=== PATIENT | male | born 1960 | race Caucasian/White ===

== ENCOUNTER 2017-05-21 16:34 | Emergency (ER) | payer OTHER ==
[~2017-05-21] VITALS: Ht 188 cm; Wt 117.9 kg
[2017-05-21] MEDS ORDERED: IV NORMAL SALINE 500ML BAG 500 ML IV ONE (17:00)
--- NOTE | 2017-05-21 17:02 | PHYS DOC ---
Past Medical History Past Medical History: Diabetes-Type II, High Cholesterol, Hypertension Past Surgical History: Other Additional Past Surgical Histo: toe x2 amputation R foot Alcohol Use: None Additional Information: no etoh x1 year Drug Use: None Adult General Chief Complaint Chief Complaint: WEAKNESS/GENERALIZED HPI HPI Patient is a 57 year old male who presents with 3-4 week history of dizziness and generalized weakness and in the last 24-48 hours has had near syncopal episodes. Moderate severity, no chest pain or shortness of breath no abdominal pain no dysuria or frequency or back pain no increased leg swelling. PCP is the [facility] Review of Systems Review of Systems Constitutional: Denies fever or chills [] Eyes: Denies change in visual acuity, redness, or eye pain [] HENT: Denies nasal congestion or sore throat [] Respiratory: Denies cough or shortness of breath [] Cardiovascular: No additional information not addressed in HPI [] GI: Denies abdominal pain, nausea, vomiting, bloody stools or diarrhea [] : Denies dysuria or hematuria [] Musculoskeletal: Denies back pain or joint pain [] Integument: Denies rash or skin lesions [] Neurologic: Denies headache, focal weakness or sensory changes [] Endocrine: Denies polyuria or polydipsia [] Current Medications Current Medications Current Medications Medications (Trade) Dose Ordered Sig/Adiel Start Time Stop Time Status Last Admin Dose Admin Sodium Chloride 500 ml @ 500 mls/hr 1X ONCE 05/21/17 17:00 05/21/17 17:59 DC 05/21/17 17:14 500 MLS/HR Allergies Allergies Allergies Coded Allergies Type Severity Reaction Last Updated Verified No Known Drug Allergies 05/21/17 No Physical Exam Physical Exam Constitutional: Well developed, well nourished, no acute distress, non-toxic appearance. [] HENT: Normocephalic, atraumatic, bilateral external ears normal, oropharynx moist, no oral exudates, nose normal. [] Eyes: PERRLA, EOMI, conjunctiva normal, no discharge. [] Neck: Normal range of motion, no tenderness, supple, no stridor. [] Cardiovascular:Heart rate regular rhythm, no murmur [] Lungs & Thorax: Bilateral breath sounds clear to auscultation [] Abdomen: Bowel sounds normal, soft, no tenderness, no masses, no pulsatile masses. [] Skin: Warm, dry, no erythema, no rash. [] Back: No tenderness, no CVA tenderness. [] Extremities: No tenderness, no cyanosis, no clubbing, ROM intact, trace edema. [ ] Neurologic: Alert and oriented X 3, normal motor function, normal sensory function, no focal deficits noted. [] Psychologic: Affect normal, judgement normal, mood normal. [] Current Patient Data Vital Signs Vital Signs Date Time Temp Pulse Resp B/P (MAP) Pulse Ox O2 Delivery O2 Flow Rate FiO2 05/21/17 18:00 68 19 99 Room Air 05/21/17 17:30 105/69 (81) 05/21/17 16:34 98.4 98.4 Lab Values Laboratory Tests Test 05/21/17 16:47 White Blood Count 8.5 x10^3/uL (4.0-11.0) Red Blood Count 4.41 x10^6/uL (4.30-5.70) Hemoglobin 13.6 g/dL (13.0-17.5) Hematocrit 37.9 % (39.0-53.0) L Mean Corpuscular Volume 86 fL (79-100) Mean Corpuscular Hemoglobin 31 pg (25-35) Mean Corpuscular Hemoglobin Concent 36 g/dL (31-37) Red Cell Distribution Width 13.5 % (11.5-14.5) Platelet Count 225 x10^3/uL (140-400) Neutrophils (%) (Auto) 73 % (31-73) Lymphocytes (%) (Auto) 19 % (24-48) L Monocytes (%) (Auto) 6 % (0-9) Eosinophils (%) (Auto) 2 % (0-3) Basophils (%) (Auto) 1 % (0-3) Neutrophils # (Auto) 6.2 x10^3uL (1.8-7.7) Lymphocytes # (Auto) 1.6 x10^3/uL (1.0-4.8) Monocytes # (Auto) 0.5 x10^3/uL (0.0-1.1) Eosinophils # (Auto) 0.1 x10^3/uL (0.0-0.7) Basophils # (Auto) 0.1 x10^3/uL (0.0-0.2) Sodium Level 142 mmol/L (136-145) Potassium Level 4.8 mmol/L (3.5-5.1) Chloride Level 105 mmol/L (98-107) Carbon Dioxide Level 28 mmol/L (21-32) Anion Gap 9 (6-14) Blood Urea Nitrogen 26 mg/dL (8-26) Creatinine 1.4 mg/dL (0.7-1.3) H Estimated GFR (Cockcroft-Gault) 51.9 BUN/Creatinine Ratio 19 (6-20) Glucose Level 187 mg/dL (70-99) H Calcium Level 8.9 mg/dL (8.5-10.1) Total Bilirubin 0.7 mg/dL (0.2-1.0) Aspartate Amino Transferase (AST) 26 U/L (15-37) Alanine Aminotransferase (ALT) 42 U/L (16-63) Alkaline Phosphatase 95 U/L (46-116) Troponin I Quantitative 0.027 ng/mL (0.000-0.055) Total Protein 7.7 g/dL (6.4-8.2) Albumin 3.5 g/dL (3.4-5.0) Albumin/Globulin Ratio 0.8 (1.0-1.7) L Laboratory Tests 05/21/17 16:47 Laboratory Tests 05/21/17 16:47 EKG EKG EKG normal sinus rhythm rate of 75 no STEMI interpretation QTC normal [] Radiology/Procedures Radiology/Procedures Chest x-ray: Unremarkable my review of the image my interpretation. [] Course & Med Decision Making Course & Med Decision Making Pertinent Labs and Imaging studies reviewed. (See chart for details) Patient has a nonfocal neurologic exam. We will check some labs and then reassess. Labs including urinalysis were unremarkable. Time 1938 reevaluation: he is wide awake resting comfortably in the bed. I discussed the normal findings on labs chest x-ray EKG and urine. I have advised close follow-up with the [facility] next available appointment. he was able to ambulate safely. [] Dragon Disclaimer Dragon Disclaimer This electronic medical record was generated, in whole or in part, using a voice recognition dictation system. Departure Departure Impression: Primary Impression: Malaise and fatigue Disposition: 01 HOME, SELF-CARE Condition: IMPROVED Patient Instructions: Weakness, [id number] DEV JUAREZ MD 12, 2017 17:02
[2017-05-21 17:06] LABS: BASO # 0.1 x10^3/uL (0.0-0.2); BASO % 1 % (0-3); EOS % 2 % (0-3); HEMATOCRIT 37.9 % (39.0-53.0); HEMOGLOBIN 13.6 g/dL (13.0-17.5); LYMPH # 1.6 x10^3/uL (1.0-4.8); LYMPH % 19 % (24-48); MEAN CORPUSCULAR HEMOGLOBIN 31 pg (25-35); MEAN CORPUSCULAR HGB CONC 36 g/dL (31-37); MEAN CORPUSCULAR VOLUME 86 fL (79-100); MONO % 6 % (0-9); NEUT % 73 % (31-73); PLATELET COUNT 225 x10^3/uL (140-400); RED BLOOD COUNT 4.41 x10^6/uL (4.30-5.70); RED CELL DISTRIBUTION WIDTH 13.5 % (11.5-14.5); WHITE BLOOD COUNT 8.5 x10^3/uL (4.0-11.0)
[2017-05-21 17:20] LABS: CALCIUM 8.9 mg/dL (8.5-10.1); CREATININE 1.4 mg/dL (0.7-1.3); GFR 51.9; POTASSIUM 4.8 mmol/L (3.5-5.1)
[2017-05-21 17:25] LABS: ALBUMIN 3.5 g/dL (3.4-5.0); ALBUMIN/GLOBULIN RATIO 0.8 (1.0-1.7); TOTAL BILIRUBIN 0.7 mg/dL (0.2-1.0); TOTAL PROTEIN 7.7 g/dL (6.4-8.2)
[2017-05-21 19:02] LABS: BILIRUBIN,URINE NEGATIVE (NEG); GLUCOSE,URINE NEGATIVE (NEG); NITRITE,URINE NEGATIVE (NEG); PH,URINE 5.5; PROTEIN,URINE NEGATIVE (NEG-TRACE)
[2017-05-21 19:09] LABS: BACTERIA,URINE 0 /HPF (0-FEW); RBC,URINE 0 /HPF (0-2); SQUAMOUS EPITHELIAL CELL,UR OCC /LPF; WBC,URINE OCC /HPF (0-4)
[2017-05-21 19:30] VITALS: BP 129/74
--- NOTE | 2017-05-22 06:18 | EKG ---
[facility] [address] [place] [address] Test Date: 2017-05-21 Test Time: 16:42:13 Pat Name: ROSAS JOHNSON Department: Room: Gender: M [employer] Internship: : 1960 Requested By: DEV JUAREZ Order Number: [id number] Reading MD: James Gaming Measurements Intervals [place] Rate: 75 P: 11 WV: 154 QRS: -7 QRSD: 78 T: 18 QT: 364 QTc: 409 Interpretive Statements SINUS RHYTHM LEFTWARD AXIS Electronically Signed On 06-07-2017 15:21:44 CDT by James Gaming
--- NOTE | 2017-05-22 08:11 | RAD ---
Portable chest, 05/21/2017: History: Weakness The heart size and pulmonary vascularity are normal. There is a calcified granuloma in the right upper lobe. No acute infiltrates are seen. There is no evidence of pleural fluid. Moderate spurring is present in the spine. IMPRESSION: No acute cardiopulmonary abnormality is detected.
== END 2017-05-21 20:12 | disposition home or self-care (01) ==
LOC: ER 16:34 → UNDOADMOB 18:28 → 2 NORTH 18:28 → ER 20:12
DX: R53.1 Weakness (principal); R53.81 Other malaise; R42 Dizziness and giddiness; R55 Syncope and collapse; E11.9 Type 2 diabetes mellitus without complications; E78.00 Pure hypercholesterolemia, unspecified; I10 Essential (primary) hypertension
CPT/HCPCS: 36415; 71010; 80053; 81001; 84484; 85027; 87086; 93005; 96360; 96361; 99285; J7040

== ENCOUNTER → 2019-10-15 | Outpatient (CLI) | payer MEDICARE ==
[2019-09-24 11:00] VITALS: BP 159/90
[~2019-10-15] MED LIST: AMLO10TA8 PO; ASPI-612 PO; ATOR20TA58 PO; INSU100V8 SQ; LOSA-73 PO; METF500T16 PO; METO50TA6 PO
--- NOTE | 2019-10-15 13:13 | RAD ---
EXAM: Lower extremity arterial Doppler sonogram with ankle-brachial indices (NEELA). HISTORY: Foot wound. Pain. Hypertension. TECHNIQUE: Doppler sonographic evaluation of the lower extremities was performed and pressure readings were assessed. FINDINGS: Right brachial pressure: 165 mmHg Left brachial pressure: 163 mmHg Right ankle pressure (posterior tibial artery): 194 mmHg Right ankle pressure (dorsalis pedis artery): 196 mmHg Right NEELA : 1.2 Left ankle pressure (posterior tibial artery): 193 mmHg Left ankle pressure (dorsalis pedis artery): 211 mmHg Left NEELA: 1.3 There are biphasic and triphasic waveforms throughout the bilateral lower extremity arteries. There is a mildly elevated peak systolic velocity within the right common femoral artery and left dorsalis pedis artery. The remainder the peak systolic velocities are within normal limits. No occlusion is seen. There is a prominent right inguinal lymph node with fatty hilum, likely physiologic or reactive in etiology. This measures 3.7 cm in long axis. There is a right popliteal cyst measuring 5.1 cm in maximum dimension. IMPRESSION: 1. Normal bilateral ankle-brachial indices. 2. Elevated peak systolic velocities within the right common femoral and left dorsalis pedis arteries, suggesting hemodynamically significant stenosis. 3. Right Kathleen's cyst. Electronically signed by: Isis Garcia MD (10/15/2019 1:09 PM) [place] [id number]
== END | disposition home or self-care (01) ==
LOC: US 08:35
PROVIDERS: ATTEND Emergency Medicine Undersea and Hyperbaric Medicine
DX: M79.604 Pain in right leg (principal); M79.605 Pain in left leg; M71.21 Synovial cyst of popliteal space [Baker], right knee; L97.519 Non-pressure chronic ulcer of other part of right foot with unspecified severity; L97.529 Non-pressure chronic ulcer of other part of left foot with unspecified severity; I10 Essential (primary) hypertension
CPT/HCPCS: 93922; 93925

== ENCOUNTER 2020-04-14 10:37 | Inpatient (IN) | payer MEDICARE ==
[~2020-04-14] VITALS: Ht 190.5 cm; Wt 135.2 kg
[2020-04-14 12:04] LABS: BASO % 1 % (0-3); EOS # 0.1 x10^3/uL (0.0-0.7); EOS % 2 % (0-3); HEMATOCRIT 33.1 % (39.0-53.0); HEMOGLOBIN 11.2 g/dL (13.0-17.5); LYMPH # 0.5 x10^3/uL (1.0-4.8); LYMPH % 13 % (24-48); MEAN CORPUSCULAR HEMOGLOBIN 30 pg (25-35); MEAN CORPUSCULAR HGB CONC 34 g/dL (31-37); MEAN CORPUSCULAR VOLUME 89 fL (79-100); MONO # 0.3 x10^3/uL (0.0-1.1); MONO % 7 % (0-9); NEUT # 3.2 x10^3/uL (1.8-7.7); NEUT % 77 % (31-73); PLATELET COUNT 193 x10^3/uL (140-400); RED BLOOD COUNT 3.74 x10^6/uL (4.30-5.70); RED CELL DISTRIBUTION WIDTH 15.9 % (11.5-14.5); WHITE BLOOD COUNT 4.2 x10^3/uL (4.0-11.0)
[2020-04-14 12:12] LABS: PROTHROMBIN TIME PATIENT 15.1 SEC (11.7-14.0)
[2020-04-14 12:15] LABS: ALBUMIN 2.8 g/dL (3.4-5.0); ALBUMIN/GLOBULIN RATIO 0.5 (1.0-1.7); CALCIUM 8.6 mg/dL (8.5-10.1); CREATININE 1.8 mg/dL (0.7-1.3); GFR 38.4; MAGNESIUM 1.9 mg/dL (1.8-2.4); TOTAL BILIRUBIN 0.9 mg/dL (0.2-1.0); TOTAL PROTEIN 7.9 g/dL (6.4-8.2)
[2020-04-14 12:21] LABS: POTASSIUM 2.8 mmol/L (3.5-5.1)
[2020-04-14] MEDS ORDERED: POTASSIUM CHLORIDE 10 MEQ TABLET.ER. PO ONE (12:30)
--- NOTE | 2020-04-14 12:44 | EKG ---
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
[2020-04-14] MEDS ORDERED: hydrALAZINE 20 MG/ML VIAL. IVP ONE (13:45)
--- NOTE | 2020-04-14 14:27 | RAD ---
CHEST AP ONLY Clinical indications: Weakness and shortness of breath. COMPARISON: September 22, 2019. Findings: The left lung field is clear. There is a new finding of a moderate size right-sided pleural effusion and associated compressive atelectasis of the right lung base. No pneumothorax is seen. Heart size and pulmonary vasculature and mediastinum are stable. IMPRESSION: New finding of moderate size right-sided pleural effusion and associated compressive atelectasis or infiltrate of the right lung base. Electronically signed by: Christiano Lemons MD (04/14/2020 2:24 PM) [id number]
[2020-04-14] MEDS ORDERED: fentaNYL PF VIAL 100 MCG/2 ML VIAL IVP ONE (15:00)
--- NOTE | 2020-04-14 15:15 | PHYS DOC ---
Past Medical History Past Medical History: Diabetes-Type II, High Cholesterol, Hypertension Past Surgical History: Other Additional Past Surgical Histo: toe x2 amputation R foot Smoking Status: Never Smoker Alcohol Use: Occasionally Drug Use: None General Adult EDM: Chief Complaint: ABNORMAL LABS HPI: HPI: Patient is a 60 year old male who was brought here by EMS from home due to high blood pressure, low potassium level, increased bilateral leg swelling. Patient has history hypertension, he took it medication this morning already. Patient stated home health nurse check on him today, felt that his blood pressure was really high so EMS were called to take him here for evaluation. Patient also was told that his serum potassium level was low as well. Patient denies any abdominal pain, no nausea vomiting. Patient denies any fever. Review of Systems: Review of Systems: Constitutional: Denies fever or chills. [] Eyes: Denies change in visual acuity. [] HENT: Denies nasal congestion or sore throat. [] Respiratory: Denies cough or shortness of breath. [] Cardiovascular: Denies chest pain or edema. [] GI: Denies abdominal pain, nausea, vomiting, bloody stools or diarrhea. [] : Denies dysuria. [] Musculoskeletal: Denies back pain , positive for bilateral lower extremity swelling Integument: Denies rash. [] Neurologic: Denies headache, focal weakness or sensory changes. [] Endocrine: Denies polyuria or polydipsia. [] Lymphatic: Denies swollen glands. [] Psychiatric: Denies depression or anxiety. [] Heart Score: Risk Factors: Risk Factors: DM, Current or recent (<one month) smoker, HTN, HLP, family history of CAD, obesity. Risk Scores: Score 0 - 3: 2.5% MACE over next 6 weeks - Discharge Home Score 4 - 6: 20.3% MACE over next 6 weeks - Admit for Clinical Observation Score 7 - 10: 72.7% MACE over next 6 weeks - Early Invasive Strategies Current Medications: Current Medications Medications (Trade) Dose Ordered Sig/Adiel Start Time Stop Time Status Last Admin Dose Admin Fentanyl Citrate (Fentanyl 2ml Vial) 100 mcg 1X ONCE 04/14/20 15:00 04/14/20 15:01 DC 04/14/20 15:10 100 MCG Hydralazine HCl (Apresoline Inj) 10 mg 1X ONCE 04/14/20 13:45 04/14/20 13:46 DC 04/14/20 13:56 10 MG Potassium Chloride (Klor-Con) 80 meq 1X ONCE 04/14/20 12:30 04/14/20 12:31 DC 04/14/20 12:37 80 MEQ Allergies: Allergies: Allergies Coded Allergies Type Severity Reaction Last Updated Verified No Known Drug Allergies 05/21/17 No Physical Exam: PE: Constitutional: Well developed, well nourished, no acute distress, non-toxic appearance. [] HENT: Normocephalic, atraumatic, bilateral external ears normal, oropharynx moist, no oral exudates, nose normal. [] Eyes: PERRLA, EOMI, conjunctiva normal, no discharge. [] Neck: Normal range of motion, no tenderness, supple, no stridor. [] Cardiovascular:Heart rate regular rhythm, no murmur [] Lungs & Thorax: Bilateral breath sounds clear to auscultation [] Abdomen: Bowel sounds normal, soft, no tenderness, no masses, no pulsatile masses. [] Skin: Warm, dry, no erythema, no rash. [] Back: No tenderness, no CVA tenderness. [] Extremities: Bilateral lower extremities swelling with 4 plus pitting edema. Neurologic: Alert and oriented X 3, normal motor function, normal sensory function, no focal deficits noted. [] Psychologic: Affect normal, judgement normal, mood normal. [] Current Patient Data: Labs: Laboratory Tests Test 04/14/20 10:45 White Blood Count 4.2 x10^3/uL (4.0-11.0) Red Blood Count 3.74 x10^6/uL (4.30-5.70) L Hemoglobin 11.2 g/dL (13.0-17.5) L Hematocrit 33.1 % (39.0-53.0) L Mean Corpuscular Volume 89 fL (79-100) Mean Corpuscular Hemoglobin 30 pg (25-35) Mean Corpuscular Hemoglobin Concent 34 g/dL (31-37) Red Cell Distribution Width 15.9 % (11.5-14.5) H Platelet Count 193 x10^3/uL (140-400) Neutrophils (%) (Auto) 77 % (31-73) H Lymphocytes (%) (Auto) 13 % (24-48) L Monocytes (%) (Auto) 7 % (0-9) Eosinophils (%) (Auto) 2 % (0-3) Basophils (%) (Auto) 1 % (0-3) Neutrophils # (Auto) 3.2 x10^3/uL (1.8-7.7) Lymphocytes # (Auto) 0.5 x10^3/uL (1.0-4.8) L Monocytes # (Auto) 0.3 x10^3/uL (0.0-1.1) Eosinophils # (Auto) 0.1 x10^3/uL (0.0-0.7) Basophils # (Auto) 0.0 x10^3/uL (0.0-0.2) Prothrombin Time 15.1 SEC (11.7-14.0) H Prothrombin Time INR 1.2 (0.8-1.1) H Activated Partial Thromboplast Time 42 SEC (24-38) H Sodium Level 139 mmol/L (136-145) Potassium Level 2.8 mmol/L (3.5-5.1) *L Chloride Level 100 mmol/L (98-107) Carbon Dioxide Level 30 mmol/L (21-32) Anion Gap 9 (6-14) Blood Urea Nitrogen 18 mg/dL (8-26) Creatinine 1.8 mg/dL (0.7-1.3) H Estimated GFR (Cockcroft-Gault) 38.4 BUN/Creatinine Ratio 10 (6-20) Glucose Level 174 mg/dL (70-99) H Calcium Level 8.6 mg/dL (8.5-10.1) Magnesium Level 1.9 mg/dL (1.8-2.4) Total Bilirubin 0.9 mg/dL (0.2-1.0) Aspartate Amino Transferase (AST) 22 U/L (15-37) Alanine Aminotransferase (ALT) 14 U/L (16-63) L Alkaline Phosphatase 91 U/L (46-116) Troponin I Quantitative 0.146 ng/mL (0.000-0.055) KY-Mvm-C-Type Natriuretic Peptide 06109 pg/mL (0-124) H Total Protein 7.9 g/dL (6.4-8.2) Albumin 2.8 g/dL (3.4-5.0) L Albumin/Globulin Ratio 0.5 (1.0-1.7) L Laboratory Tests 04/14/20 10:45 Laboratory Tests 04/14/20 10:45 Vital Signs: Vital Signs Date Time Temp Pulse Resp B/P (MAP) Pulse Ox O2 Delivery O2 Flow Rate FiO2 04/14/20 15:10 Room Air 04/14/20 13:56 69 195/115 04/14/20 10:37 97.9 20 98 97.9 EKG: EKG: EKG was done at 1156, heart rate 79 bpm, no ST segment elevation, atrial fibrillation. [] Radiology/Procedures: Radiology/Procedures: [][place] [id number] [place] [address] IMAGING REPORT Signed PATIENT: ROSAS JOHNSON ACCOUNT: [id number] : 1960 LOCATION: ER AGE: 60 SEX: M EXAM STATUS: REG ER ORD. PHYSICIAN: DEDRA MUELLER DO REASON: WEAKNESS, SHORT OF BREATH PROCEDURE: CHEST AP ONLY CHEST AP ONLY Clinical indications: Weakness and shortness of breath. COMPARISON: September 22, 2019. Findings: The left lung field is clear. There is a new finding of a moderate size right-sided pleural effusion and associated compressive atelectasis of the right lung base. No pneumothorax is seen. Heart size and pulmonary vasculature and mediastinum are stable. IMPRESSION: New finding of moderate size right-sided pleural effusion and associated compressive atelectasis or infiltrate of the right lung base. Electronically signed by: Anat Lemons MD (04/14/2020 2:24 PM) [id number] DICTATED and SIGNED BY: ANAT LEMONS MD DATE: 04/14/20 [address]24 [id number] [place], [place] [id number] IMAGING REPORT Signed PATIENT: ROSAS JOHNSON ACCOUNT: [id number] : 1960 LOCATION: ER AGE: 60 SEX: M EXAM STATUS: REG ER ORD. PHYSICIAN: DEDRA MUELLER DO REASON: LEGS SWELLING PROCEDURE: VENOUS LOWER EXT BILATERAL Exam: VENOUS LOWER EXT BILATERAL Indication: Reason: LEGS SWELLING / Spl. Instructions: / History: Technique: Color-flow and pulsed wave duplex ultrasound with compression of venous structures of the bilateral lower extremities. Comparison: None Available. Findings: Technically difficult examination due to patient's habitus. Venous compression was at times difficult to visualize. Duplex ultrasound of the deep venous structures of the bilateral lower extremities from the common femoral vein through the popliteal vein is negative for DVT. The posterior tibial and peroneal veins are segmentally visualized and patent where seen. Impression: Negative for DVT in the bilateral lower extremities, allowing for technical limitations. Electronically signed by: Darby Keenan MD (04/14/2020 4:02 PM) [facility] DICTATED and SIGNED BY: DARBY KEENAN MD DATE: 04/14/201601 Course & Med Decision Making: Course & Med Decision Making Pertinent Labs and Imaging studies reviewed. (See chart for details) Patient is a 60-year-old male who was evaluated in the ER due to low potassium level, bilateral lower extremity swelling, and hypertension. Patient was given 80 mEq of potassium p.o., he was given 20 mg of hydralazine IV, his blood pressure continued to elevated. Ultrasound his legs did not show any blood shawn t. Patient will be admitted to hospital for further evaluation and treatment. Karie Disclaimer: Karie Disclaimer: This electronic medical record was generated, in whole or in part, using a voice recognition dictation system. Departure Departure Impression: Primary Impression: Hypokalemia Additional Impressions: Hypertensive urgency Edema of both legs Pleural effusion, right Disposition: ADMITTED INPATIENT Condition: STABLE Referrals: NO PCP (PCP) Justicifation of Admission Dx: Justifications for Admission: Justification of Admission Dx: Yes Hypertension: Cresendo Worsening of Sym ERVINDEDRA Saxena DO Apr 14, 2020 15:15
[2020-04-14] MEDS ORDERED: MORPHINE SULFATE 2 MG/ML VIAL. IV PRN (16:00)
[2020-04-14] MEDS ORDERED: ONDANSETRON PF 4 MG/2 ML VIAL. IV PRN (16:00)
--- NOTE | 2020-04-14 16:05 | RAD ---
Exam: VENOUS LOWER EXT BILATERAL Indication: Reason: LEGS SWELLING / Spl. Instructions: / History: Technique: Color-flow and pulsed wave duplex ultrasound with compression of venous structures of the bilateral lower extremities. Comparison: None Available. Findings: Technically difficult examination due to patient's habitus. Venous compression was at times difficult to visualize. Duplex ultrasound of the deep venous structures of the bilateral lower extremities from the common femoral vein through the popliteal vein is negative for DVT. The posterior tibial and peroneal veins are segmentally visualized and patent where seen. Impression: Negative for DVT in the bilateral lower extremities, allowing for technical limitations. Electronically signed by: Chavo Keenan MD (04/14/2020 4:02 PM) TIM
[2020-04-14] MEDS ORDERED: LABETALOL 20 MG/4 ML DISP.SYRIN. IVP ONE (16:15)
[2020-04-14 17:35] VITALS: BP 155/87
[2020-04-14 19:00] VITALS: BP 152/86
--- NOTE | 2020-04-14 19:23 | NUR ---
The patient was brought to the floor at approximately 1705 hours. The patient doesn't know the names or dosages of medication he is suppose to be taking. The patient knows that he takes insulin, [facility] performs glucose checks, changes his dressing on his wounds and gives him blood pressure medication. The patient says he knows the colors of the pills. I was not able to input his medications. The only external medications listed were antibiotics.
--- NOTE | 2020-04-14 22:07 | HP ---
ADMIT DATE: 04/14/2020 CHIEF COMPLAINT: Abnormal labs. HISTORY OF PRESENT ILLNESS: The patient is a pleasant 60-year-old male who I think may be noncompliant with his meds. He basically presented because of home health nurse checked him today and felt that his blood pressure was really high. They called EMS. When he got to the ER, his pressure was in the 250s. He also has 3+ edema. His potassium was very low at 2.8. He has got a wound on the right foot. I discussed the case with ER physician. We are going to admit the patient and replace his potassium and consult the wound care team and Cardiology. PAST MEDICAL HISTORY: Noncompliance, hypertension, hyperlipidemia, diabetes, and toe amputations. ALLERGIES: None. FAMILY HISTORY: Hypertension. SOCIAL HISTORY: He does not drink, smoke or take drugs. MEDICATIONS: Reviewed, please refer to the MRAD. REVIEW OF SYSTEMS: GENERAL: No history of weight change, weakness or fevers. SKIN: No bruising, hair changes or rashes. EYES: No blurred, double or loss of vision. NOSE AND THROAT: No history of nosebleeds, hoarseness or sore throat. HEART: No history of palpitations, chest pain or shortness of breath on exertion. LUNGS: Denies cough, hemoptysis, wheezing or shortness of breath. GASTROINTESTINAL: Denies changes in appetite, nausea, vomiting, diarrhea or constipation. GENITOURINARY: No history of frequency, urgency, hesitancy or nocturia. NEUROLOGIC: Denies history of numbness, tingling, tremor or weakness. PSYCHIATRIC: No history of panic, anxiety or depression. ENDOCRINE: No history of heat or cold intolerance, polyuria or polydipsia. EXTREMITIES: He complains of edema and a right foot wound. PHYSICAL EXAMINATION: VITALS: His pressure was 254 when he arrived and it is down to 152/86 now. GENERAL: No apparent distress. Alert and oriented. HEENT: Normal cephalic atraumatic, external auditory canals are patent EYES: Extraocular muscles are intact, pupils are equally round and reactive to light and accommodation MUSCULOSKELETAL: Well developed, well nourished, good range of motion ENDOCRINE: No thyromegaly was palpated LYMPHATICS: No cervical chain or axillary nodes were noted HEMATOPOIETIC: No bruising NECK: Supple, no JVD, no thyromegaly was noted. LUNGS: Clear to auscultation in all lung santana without rhonchi or wheezing. HEART: RRR, S1, S2 present. Peripheral pulses intact, no obvious murmurs were noted. ABDOMEN: Soft, nontender. Positive bowel sounds no organomegaly, normal bowel sounds. EXTREMITIES: He has 3+ edema of the lower extremities. He also has a right foot wound with clean, dry and intact dressing. NEUROLOGIC: Normal speech, normal tone. A & O x3, moves all extremities, no obvious focal deficits. PSYCHIATRIC: Normal affect, normal mood. Stable. SKIN: No ulcerations or rashes, good skin turgor, no jaundice. VASCULAR: Good capillary refill, neurovascular bundle appears to be intact. LABORATORY DATA: Hemoglobin is 11.2. Potassium is 2.8. Creatinine is 1.8. ASSESSMENT AND PLAN: Severe but emergent hypertension, hypokalemia, noncompliance, chronic renal insufficiency, wounds, anemia and heart failure. The patient will be admitted. We will consult Cardiology and consult the wound care team. Replace his potassium. We will try to adjust his meds. I discussed the case with the nurse. He is really not sure what his meds are, we are going to try to figure that out. LONG-TERM PROGNOSIS: Guarded. TULIO DANGELO DO DR: LEIGHANN/melanie JOB#: [id number] / [id number]
[2020-04-14 23:02] VITALS: BP 152/76
[2020-04-15 03:04] VITALS: BP 136/71
[2020-04-15 05:41] LABS: BASO % 1 % (0-3); EOS # 0.1 x10^3/uL (0.0-0.7); EOS % 3 % (0-3); HEMATOCRIT 28.7 % (39.0-53.0); HEMOGLOBIN 9.6 g/dL (13.0-17.5); LYMPH # 0.6 x10^3/uL (1.0-4.8); LYMPH % 17 % (24-48); MEAN CORPUSCULAR HEMOGLOBIN 30 pg (25-35); MEAN CORPUSCULAR HGB CONC 34 g/dL (31-37); MEAN CORPUSCULAR VOLUME 89 fL (79-100); MONO # 0.3 x10^3/uL (0.0-1.1); MONO % 9 % (0-9); NEUT # 2.3 x10^3/uL (1.8-7.7); NEUT % 70 % (31-73); PLATELET COUNT 152 x10^3/uL (140-400); RED BLOOD COUNT 3.21 x10^6/uL (4.30-5.70); WHITE BLOOD COUNT 3.3 x10^3/uL (4.0-11.0)
[2020-04-15 05:56] LABS: ALBUMIN 2.4 g/dL (3.4-5.0); ALBUMIN/GLOBULIN RATIO 0.6 (1.0-1.7); CREATININE 1.8 mg/dL (0.7-1.3); TOTAL PROTEIN 6.7 g/dL (6.4-8.2)
[2020-04-15 05:57] LABS: GFR 38.4; TOTAL BILIRUBIN 0.6 mg/dL (0.2-1.0)
[2020-04-15 07:20] VITALS: BP 147/84
[2020-04-15] MEDS ORDERED: DEXTROSE 50% 25 GM / 50ML DISP.SYRIN. IV PRN (09:30)
[2020-04-15] MEDS: ASPIRIN ENTERIC COATED 81 MG TABLET.DR. PO SCH (10:52)
[2020-04-15] MEDS: LOSARTAN POTASSIUM 50 MG TABLET. PO SCH (10:52)
[2020-04-15] MEDS: amLODIPine BESYLATE 10 MG TABLET PO SCH (10:52)
[2020-04-15] MEDS: METOPROLOL TART IMMED RELEASE 50 MG TABLET. PO SCH ×2 (10:52→22:29)
[2020-04-15 11:28] VITALS: BP 147/84
[2020-04-15] MEDS: INSULIN LISPRO 300 UNITS/3 ML VIAL. SQ SCH ×2 (13:12→17:00)
--- NOTE | 2020-04-15 14:37 | PDOC2 ---
CONSULT Date of Consult Date of Consult DATE: 04/15/20 TIME: 14:29 Reason for Consult Reason for Consult: Atrial fibrillation, hypertensive urgency. Referring Physician Referring Physician: Dr. Boyd. Identification/Chief Complaint Chief Complaint Hypertensive urgency with fatigue and lower extremity swelling Source Source: Chart review, Patient History of Present Illness Reason for Visit: The patient is a 60-year-old male who apparently was sent from his home to the emergency room yesterday for severe hypertension, hypokalemia and lower extremity swelling. In the emergency room the patient's blood pressure is 195/115. Potassium was 2.8 with a creatinine of 1.8. Patient has a history of hypertension, hyperlipidemia and diabetes. Additionally his EKG showed atrial fibrillation at a rate of [address] segment changes. A chest x-ray showed a moderately sized right pleural effusion. Lower extremity venous ultrasound studies have shown no DVTs. Patient was treated with IV antihypertensive and his potassium was replaced overnight. He is feeling better this morning. Of note the patient had a cardiac nuclear stress test on 10/21/2019 that showed no evidence of reversible ischemia. Ejection fraction was 40% with probable diaphragmatic attenuation. Past Medical History Cardiovascular: HTN, Hyperlipidemia Pulmonary: No pertinent hx CENTRAL NERVOUS SYSTEM: Other GI: No pertinent hx Heme/Onc: No pertinent hx Hepatobiliary: No pertinent hx Psych: No pertinent hx Musculoskeletal: Osteoarthritis Rheumatologic: No pertinent hx Infectious disease: No pertinent hx Renal/: No pertinent hx Endocrine: Diabetes Past Surgical History Past Surgical History: Other (Right toe amputation) Family History Family History: Diabetes Social History No ALCOHOL: occassional Drugs: None Lives: Alone Current Problem List Problem List Problems Medical Problems: (1) Edema of both legs Status: Acute (2) Hypertensive urgency Status: Acute (3) Hypokalemia Status: Acute (4) Pleural effusion, right Status: Acute Current Medications Current Medications Current Medications Potassium Chloride (Klor-Con) 80 meq 1X ONCE PO Last administered on 04/14/20at 12:37; Start 04/14/20 at 12:30; Stop 04/14/20 at 12:31; Status DC Hydralazine HCl (Apresoline Inj) 10 mg 1X ONCE IVP Last administered on 04/14/20at 13:56; Start 04/14/20 at 13:45; Stop 04/14/20 at 13:46; Status DC Fentanyl Citrate (Fentanyl 2ml Vial) 100 mcg 1X ONCE IVP Last administered on 04/14/20at 15:10; Start 04/14/20 at 15:00; Stop 04/14/20 at 15:01; Status DC Ondansetron HCl (Zofran) 4 mg PRN Q8HRS PRN IV NAUSEA/VOMITING; Start 04/14/20 at 16:00; Stop 04/15/20 at 15:59 Morphine Sulfate (Morphine Sulfate) 2 mg PRN Q2HR PRN IV PAIN; Start 04/14/20 at 16:00; Stop 04/15/20 at 09:31; Status DC Labetalol HCl (Normodyne Iv Push) 20 mg 1X ONCE IVP Last administered on 04/14/20at 16:30; Start 04/14/20 at 16:15; Stop 04/14/20 at 16:16; Status DC Amlodipine Besylate (Norvasc) 10 mg DAILY PO Last administered on 04/15/20at 10:52; Start 04/15/20 at 10:00 Aspirin (Ecotrin) 81 mg DAILYWBKFT PO Last administered on 04/15/20at 10:52; Start 04/15/20 at 10:00 Atorvastatin Calcium (Lipitor) 20 mg QHS PO ; Start 04/15/20 at 21:00 Insulin Glargine (Lantus Syringe) 8 unit QHS SQ ; Start 04/15/20 at 21:00 Losartan Potassium (Cozaar) 50 mg DAILY PO Last administered on 04/15/20at 10:52; Start 04/15/20 at 10:00 Metoprolol Tartrate (Lopressor) 50 mg BID PO Last administered on 04/15/20at 10:52; Start 04/15/20 at 10:00 Insulin Human Lispro (HumaLOG) 0-7 UNITS TIDWMEALS SQ Last administered on 04/15/20at 13:12; Start 04/15/20 at 12:00 Dextrose (Dextrose 50%-Water Syringe) 12.5 gm PRN Q15MIN PRN IV SEE COMMENTS; Start 04/15/20 at 09:30 Active Scripts Active Metoprolol Tartrate 50 Mg Tablet 50 Mg PO BID 30 Days Cozaar (Losartan Potassium) 50 Mg Tablet 50 Mg PO DAILY 30 Days Lantus (Insulin Glargine,Hum.rec.anlog) 100 Unit/1 Ml Vial 8 Unit SQ QHS 30 Days Aspirin Ec (Aspirin) 81 Mg Tablet.dr 81 Mg PO DAILYWBKFT 30 Days Amlodipine Besylate 10 Mg Tablet 10 Mg PO DAILY 30 Days Atorvastatin Calcium 20 Mg Tablet 20 Mg PO QHS 90 Days Allergies Allergies: Coded Allergies: No Known Drug Allergies (Unverified , 05/21/17) ROS General: YES: Fatigue Respiratory: YES: SOB with excertion Physical Exam General: mild distress Lungs: Other (Decreased breath sounds greater on the right) Heart: Other (Irregularly irregular) Abdomen: Normal bowel sounds Extremities: Other (+2 edema) Vitals VITALS Vital Signs Date Time Temp Pulse Resp B/P (MAP) Pulse Ox O2 Delivery O2 Flow Rate FiO2 04/15/20 11:28 97.4 75 18 147/84 (105) 94 Room Air 97.4 Labs Labs Laboratory Tests Test 04/14/20 10:45 04/15/20 05:15 04/15/20 07:16 04/15/20 10:52 White Blood Count 4.2 x10^3/uL (4.0-11.0) 3.3 x10^3/uL (4.0-11.0) Red Blood Count 3.74 x10^6/uL (4.30-5.70) 3.21 x10^6/uL (4.30-5.70) Hemoglobin 11.2 g/dL (13.0-17.5) 9.6 g/dL (13.0-17.5) Hematocrit 33.1 % (39.0-53.0) 28.7 % (39.0-53.0) Mean Corpuscular Volume 89 fL (79-100) 89 fL (79-100) Mean Corpuscular Hemoglobin 30 pg (25-35) 30 pg (25-35) Mean Corpuscular Hemoglobin Concent 34 g/dL (31-37) 34 g/dL (31-37) Red Cell Distribution Width 15.9 % (11.5-14.5) 16.0 % (11.5-14.5) Platelet Count 193 x10^3/uL (140-400) 152 x10^3/uL (140-400) Neutrophils (%) (Auto) 77 % (31-73) 70 % (31-73) Lymphocytes (%) (Auto) 13 % (24-48) 17 % (24-48) Monocytes (%) (Auto) 7 % (0-9) 9 % (0-9) Eosinophils (%) (Auto) 2 % (0-3) 3 % (0-3) Basophils (%) (Auto) 1 % (0-3) 1 % (0-3) Neutrophils # (Auto) 3.2 x10^3/uL (1.8-7.7) 2.3 x10^3/uL (1.8-7.7) Lymphocytes # (Auto) 0.5 x10^3/uL (1.0-4.8) 0.6 x10^3/uL (1.0-4.8) Monocytes # (Auto) 0.3 x10^3/uL (0.0-1.1) 0.3 x10^3/uL (0.0-1.1) Eosinophils # (Auto) 0.1 x10^3/uL (0.0-0.7) 0.1 x10^3/uL (0.0-0.7) Basophils # (Auto) 0.0 x10^3/uL (0.0-0.2) 0.0 x10^3/uL (0.0-0.2) Prothrombin Time 15.1 SEC (11.7-14.0) Prothromb Time International Ratio 1.2 (0.8-1.1) Activated Partial Thromboplast Time 42 SEC (24-38) Sodium Level 139 mmol/L (136-145) 139 mmol/L (136-145) Potassium Level 2.8 mmol/L (3.5-5.1) 3.0 mmol/L (3.5-5.1) Chloride Level 100 mmol/L (98-107) 102 mmol/L (98-107) Carbon Dioxide Level 30 mmol/L (21-32) 30 mmol/L (21-32) Anion Gap 9 (6-14) 7 (6-14) Blood Urea Nitrogen 18 mg/dL (8-26) 17 mg/dL (8-26) Creatinine 1.8 mg/dL (0.7-1.3) 1.8 mg/dL (0.7-1.3) Estimated GFR (Cockcroft-Gault) 38.4 38.4 BUN/Creatinine Ratio 10 (6-20) 9 (6-20) Glucose Level 174 mg/dL (70-99) 168 mg/dL (70-99) Calcium Level 8.6 mg/dL (8.5-10.1) 8.0 mg/dL (8.5-10.1) Magnesium Level 1.9 mg/dL (1.8-2.4) Total Bilirubin 0.9 mg/dL (0.2-1.0) 0.6 mg/dL (0.2-1.0) Aspartate Amino Transf (AST/SGOT) 22 U/L (15-37) 17 U/L (15-37) Alanine Aminotransferase (ALT/SGPT) 14 U/L (16-63) 13 U/L (16-63) Alkaline Phosphatase 91 U/L (46-116) 77 U/L (46-116) Troponin I Quantitative 0.146 ng/mL (0.000-0.055) IF-Daw-X-Type Natriuretic Peptide 37018 pg/mL (0-124) Total Protein 7.9 g/dL (6.4-8.2) 6.7 g/dL (6.4-8.2) Albumin 2.8 g/dL (3.4-5.0) 2.4 g/dL (3.4-5.0) Albumin/Globulin Ratio 0.5 (1.0-1.7) 0.6 (1.0-1.7) Glucose (Fingerstick) 144 mg/dL (70-99) 171 mg/dL (70-99) Laboratory Tests Test 04/15/20 05:15 04/15/20 07:16 04/15/20 10:52 White Blood Count 3.3 x10^3/uL (4.0-11.0) Red Blood Count 3.21 x10^6/uL (4.30-5.70) Hemoglobin 9.6 g/dL (13.0-17.5) Hematocrit 28.7 % (39.0-53.0) Mean Corpuscular Volume 89 fL (79-100) Mean Corpuscular Hemoglobin 30 pg (25-35) Mean Corpuscular Hemoglobin Concent 34 g/dL (31-37) Red Cell Distribution Width 16.0 % (11.5-14.5) Platelet Count 152 x10^3/uL (140-400) Neutrophils (%) (Auto) 70 % (31-73) Lymphocytes (%) (Auto) 17 % (24-48) Monocytes (%) (Auto) 9 % (0-9) Eosinophils (%) (Auto) 3 % (0-3) Basophils (%) (Auto) 1 % (0-3) Neutrophils # (Auto) 2.3 x10^3/uL (1.8-7.7) Lymphocytes # (Auto) 0.6 x10^3/uL (1.0-4.8) Monocytes # (Auto) 0.3 x10^3/uL (0.0-1.1) Eosinophils # (Auto) 0.1 x10^3/uL (0.0-0.7) Basophils # (Auto) 0.0 x10^3/uL (0.0-0.2) Sodium Level 139 mmol/L (136-145) Potassium Level 3.0 mmol/L (3.5-5.1) Chloride Level 102 mmol/L (98-107) Carbon Dioxide Level 30 mmol/L (21-32) Anion Gap 7 (6-14) Blood Urea Nitrogen 17 mg/dL (8-26) Creatinine 1.8 mg/dL (0.7-1.3) Estimated GFR (Cockcroft-Gault) 38.4 BUN/Creatinine Ratio 9 (6-20) Glucose Level 168 mg/dL (70-99) Calcium Level 8.0 mg/dL (8.5-10.1) Total Bilirubin 0.6 mg/dL (0.2-1.0) Aspartate Amino Transf (AST/SGOT) 17 U/L (15-37) Alanine Aminotransferase (ALT/SGPT) 13 U/L (16-63) Alkaline Phosphatase 77 U/L (46-116) Total Protein 6.7 g/dL (6.4-8.2) Albumin 2.4 g/dL (3.4-5.0) Albumin/Globulin Ratio 0.6 (1.0-1.7) Glucose (Fingerstick) 144 mg/dL (70-99) 171 mg/dL (70-99) Images Images Chest x-ray with a moderate sized right pleural effusion. Lower extremity venous ultrasound shows no DVT Assessment/Plan Assessment/Plan 1. Hypertensive urgency. Blood pressure improved at this time but still not controlled. Will adjust medications as needed. 2. Hypokalemia. Replaced. Continuing to monitor. 3. Possible ABDI. Creatinine of 1.8. Possible renal evaluation. 4. Atrial fibrillation. Rate controlled. No reported history of atrial fibrillation. Will continue to monitor. Anticoagulation. 5. Right pleural effusion. Pulmonary evaluation. 6. Possible acute mixed heart failure. Severe hypertension as above as well as an ejection fraction of 40% on a nuclear stress test in October 2019. Medications as above. We will recheck an echocardiogram. Thank you for allowing us to participate in the care of your patient. NACHO DENIS MD Apr 15, 2020 14:37
[2020-04-15 15:06] VITALS: BP 151/74
[2020-04-15] MEDS: CEFDINIR 300 MG CAPSULE PO SCH ×2 (17:25→22:28)
--- NOTE | 2020-04-15 17:31 | PDOC ---
PROGRESS NOTES Chief Complaint Chief Complaint Assessment/Plan Hypertensive urgency. Seems to be better controlled and his symptoms have improved with lower numbers reassurance has been provided Chronic kidney disease stage 2 History of atrial fibrillation. Rate controlled. No reported history of atrial fibrillation. Will continue to monitor. Anticoagulation. Right pleural effusion most likely secondary to underlying congestive heart failure does not seem to be of clinical significance. History of congestive heart failure systolic dysfunction, last ejection fraction recorded 40% in October 2019 Hypokalemia. Replaced. Plan Continue titration of blood pressure Appreciate cardiology evaluation recommendation Reassurance provided Wound care consult Continue with antibiotics that were initiated on Friday this week for his right foot ulcer Further recommendations based on the clinical course History of Present Illness History of Present Illness No acute events reported overnight, case discussed with nursing staff patient in no acute distress no complaints during my visit Vitals Vitals Vital Signs Date Time Temp Pulse Resp B/P (MAP) Pulse Ox O2 Delivery O2 Flow Rate FiO2 04/15/20 15:06 97.9 68 16 151/74 (99) 94 Room Air 97.9 Physical Exam Physical Exam GENERAL: No apparent distress. Alert and oriented. HEENT: Normal cephalic atraumatic, external auditory canals are patent EYES: Extraocular muscles are intact, pupils are equally round and reactive to light and accommodation MUSCULOSKELETAL: Well developed, well nourished, good range of motion ENDOCRINE: No thyromegaly was palpated LYMPHATICS: No cervical chain or axillary nodes were noted HEMATOPOIETIC: No bruising NECK: Supple, no JVD, no thyromegaly was noted. LUNGS: Clear to auscultation in all lung s[place] without rhonchi or wheezing. HEART: RRR, S1, S2 present. Peripheral pulses intact, no obvious murmurs were noted. ABDOMEN: Soft, nontender. Positive bowel sounds no organomegaly, normal bowel sounds. EXTREMITIES: He has 3+ edema of the lower extremities. He also has a right foot wound with clean, dry and intact dressing. NEUROLOGIC: Normal speech, normal tone. A & O x3, moves all extremities, no obvious focal deficits. PSYCHIATRIC: Normal affect, normal mood. Stable. SKIN: No ulcerations or rashes, good skin turgor, no jaundice. VASCULAR: Good capillary refill, neurovascular bundle appears to be intact. General: No acute distress Heart: Other (Irregularly irregular) Lungs: Clear, Other Abdomen: Normal bowel sounds Extremities: Other (+2 edema) Labs LABS Laboratory Tests Test 04/15/20 05:15 04/15/20 07:16 04/15/20 10:52 04/15/20 16:06 White Blood Count 3.3 x10^3/uL (4.0-11.0) Red Blood Count 3.21 x10^6/uL (4.30-5.70) Hemoglobin 9.6 g/dL (13.0-17.5) Hematocrit 28.7 % (39.0-53.0) Mean Corpuscular Volume 89 fL (79-100) Mean Corpuscular Hemoglobin 30 pg (25-35) Mean Corpuscular Hemoglobin Concent 34 g/dL (31-37) Red Cell Distribution Width 16.0 % (11.5-14.5) Platelet Count 152 x10^3/uL (140-400) Neutrophils (%) (Auto) 70 % (31-73) Lymphocytes (%) (Auto) 17 % (24-48) Monocytes (%) (Auto) 9 % (0-9) Eosinophils (%) (Auto) 3 % (0-3) Basophils (%) (Auto) 1 % (0-3) Neutrophils # (Auto) 2.3 x10^3/uL (1.8-7.7) Lymphocytes # (Auto) 0.6 x10^3/uL (1.0-4.8) Monocytes # (Auto) 0.3 x10^3/uL (0.0-1.1) Eosinophils # (Auto) 0.1 x10^3/uL (0.0-0.7) Basophils # (Auto) 0.0 x10^3/uL (0.0-0.2) Sodium Level 139 mmol/L (136-145) Potassium Level 3.0 mmol/L (3.5-5.1) Chloride Level 102 mmol/L (98-107) Carbon Dioxide Level 30 mmol/L (21-32) Anion Gap 7 (6-14) Blood Urea Nitrogen 17 mg/dL (8-26) Creatinine 1.8 mg/dL (0.7-1.3) Estimated GFR (Cockcroft-Gault) 38.4 BUN/Creatinine Ratio 9 (6-20) Glucose Level 168 mg/dL (70-99) Calcium Level 8.0 mg/dL (8.5-10.1) Total Bilirubin 0.6 mg/dL (0.2-1.0) Aspartate Amino Transf (AST/SGOT) 17 U/L (15-37) Alanine Aminotransferase (ALT/SGPT) 13 U/L (16-63) Alkaline Phosphatase 77 U/L (46-116) Total Protein 6.7 g/dL (6.4-8.2) Albumin 2.4 g/dL (3.4-5.0) Albumin/Globulin Ratio 0.6 (1.0-1.7) Glucose (Fingerstick) 144 mg/dL (70-99) 171 mg/dL (70-99) 148 mg/dL (70-99) Assessment and Plan Assessmemt and Plan Problems Medical Problems: (1) Edema of both legs Status: Acute (2) Hypertensive urgency Status: Acute (3) Hypokalemia Status: Acute (4) Pleural effusion, right Status: Acute Comment Review of Relevant I have reviewed the following items melinda (where applicable) has been applied. Labs Laboratory Tests Test 04/14/20 10:45 04/15/20 05:15 04/15/20 07:16 04/15/20 10:52 White Blood Count 4.2 x10^3/uL (4.0-11.0) 3.3 x10^3/uL (4.0-11.0) Red Blood Count 3.74 x10^6/uL (4.30-5.70) 3.21 x10^6/uL (4.30-5.70) Hemoglobin 11.2 g/dL (13.0-17.5) 9.6 g/dL (13.0-17.5) Hematocrit 33.1 % (39.0-53.0) 28.7 % (39.0-53.0) Mean Corpuscular Volume 89 fL (79-100) 89 fL (79-100) Mean Corpuscular Hemoglobin 30 pg (25-35) 30 pg (25-35) Mean Corpuscular Hemoglobin Concent 34 g/dL (31-37) 34 g/dL (31-37) Red Cell Distribution Width 15.9 % (11.5-14.5) 16.0 % (11.5-14.5) Platelet Count 193 x10^3/uL (140-400) 152 x10^3/uL (140-400) Neutrophils (%) (Auto) 77 % (31-73) 70 % (31-73) Lymphocytes (%) (Auto) 13 % (24-48) 17 % (24-48) Monocytes (%) (Auto) 7 % (0-9) 9 % (0-9) Eosinophils (%) (Auto) 2 % (0-3) 3 % (0-3) Basophils (%) (Auto) 1 % (0-3) 1 % (0-3) Neutrophils # (Auto) 3.2 x10^3/uL (1.8-7.7) 2.3 x10^3/uL (1.8-7.7) Lymphocytes # (Auto) 0.5 x10^3/uL (1.0-4.8) 0.6 x10^3/uL (1.0-4.8) Monocytes # (Auto) 0.3 x10^3/uL (0.0-1.1) 0.3 x10^3/uL (0.0-1.1) Eosinophils # (Auto) 0.1 x10^3/uL (0.0-0.7) 0.1 x10^3/uL (0.0-0.7) Basophils # (Auto) 0.0 x10^3/uL (0.0-0.2) 0.0 x10^3/uL (0.0-0.2) Prothrombin Time 15.1 SEC (11.7-14.0) Prothromb Time International Ratio 1.2 (0.8-1.1) Activated Partial Thromboplast Time 42 SEC (24-38) Sodium Level 139 mmol/L (136-145) 139 mmol/L (136-145) Potassium Level 2.8 mmol/L (3.5-5.1) 3.0 mmol/L (3.5-5.1) Chloride Level 100 mmol/L (98-107) 102 mmol/L (98-107) Carbon Dioxide Level 30 mmol/L (21-32) 30 mmol/L (21-32) Anion Gap 9 (6-14) 7 (6-14) Blood Urea Nitrogen 18 mg/dL (8-26) 17 mg/dL (8-26) Creatinine 1.8 mg/dL (0.7-1.3) 1.8 mg/dL (0.7-1.3) Estimated GFR (Cockcroft-Gault) 38.4 38.4 BUN/Creatinine Ratio 10 (6-20) 9 (6-) Glucose Level 174 mg/dL (70-99) 168 mg/dL (70-99) Calcium Level 8.6 mg/dL (8.5-10.1) 8.0 mg/dL (8.5-10.1) Magnesium Level 1.9 mg/dL (1.8-2.4) Total Bilirubin 0.9 mg/dL (0.2-1.0) 0.6 mg/dL (0.2-1.0) Aspartate Amino Transf (AST/SGOT) 22 U/L (15-37) 17 U/L (15-37) Alanine Aminotransferase (ALT/SGPT) 14 U/L (16-63) 13 U/L (16-63) Alkaline Phosphatase 91 U/L (46-116) 77 U/L (46-116) Troponin I Quantitative 0.146 ng/mL (0.000-0.055) WQ-Yhm-I-Type Natriuretic Peptide 75915 pg/mL (0-124) Total Protein 7.9 g/dL (6.4-8.2) 6.7 g/dL (6.4-8.2) Albumin 2.8 g/dL (3.4-5.0) 2.4 g/dL (3.4-5.0) Albumin/Globulin Ratio 0.5 (1.0-1.7) 0.6 (1.0-1.7) Glucose (Fingerstick) 144 mg/dL (70-99) 171 mg/dL (70-99) Test 04/15/20 16:06 Glucose (Fingerstick) 148 mg/dL (70-99) Laboratory Tests Test 04/15/20 05:15 04/15/20 07:16 04/15/20 10:52 04/15/20 16:06 White Blood Count 3.3 x10^3/uL (4.0-11.0) Red Blood Count 3.21 x10^6/uL (4.30-5.70) Hemoglobin 9.6 g/dL (13.0-17.5) Hematocrit 28.7 % (39.0-53.0) Mean Corpuscular Volume 89 fL (79-100) Mean Corpuscular Hemoglobin 30 pg (25-35) Mean Corpuscular Hemoglobin Concent 34 g/dL (31-37) Red Cell Distribution Width 16.0 % (11.5-14.5) Platelet Count 152 x10^3/uL (140-400) Neutrophils (%) (Auto) 70 % (31-73) Lymphocytes (%) (Auto) 17 % (24-48) Monocytes (%) (Auto) 9 % (0-9) Eosinophils (%) (Auto) 3 % (0-3) Basophils (%) (Auto) 1 % (0-3) Neutrophils # (Auto) 2.3 x10^3/uL (1.8-7.7) Lymphocytes # (Auto) 0.6 x10^3/uL (1.0-4.8) Monocytes # (Auto) 0.3 x10^3/uL (0.0-1.1) Eosinophils # (Auto) 0.1 x10^3/uL (0.0-0.7) Basophils # (Auto) 0.0 x10^3/uL (0.0-0.2) Sodium Level 139 mmol/L (136-145) Potassium Level 3.0 mmol/L (3.5-5.1) Chloride Level 102 mmol/L (98-107) Carbon Dioxide Level 30 mmol/L (21-32) Anion Gap 7 (6-14) Blood Urea Nitrogen 17 mg/dL (8-26) Creatinine 1.8 mg/dL (0.7-1.3) Estimated GFR (Cockcroft-Gault) 38.4 BUN/Creatinine Ratio 9 (6-20) Glucose Level 168 mg/dL (70-99) Calcium Level 8.0 mg/dL (8.5-10.1) Total Bilirubin 0.6 mg/dL (0.2-1.0) Aspartate Amino Transf (AST/SGOT) 17 U/L (15-37) Alanine Aminotransferase (ALT/SGPT) 13 U/L (16-63) Alkaline Phosphatase 77 U/L (46-116) Total Protein 6.7 g/dL (6.4-8.2) Albumin 2.4 g/dL (3.4-5.0) Albumin/Globulin Ratio 0.6 (1.0-1.7) Glucose (Fingerstick) 144 mg/dL (70-99) 171 mg/dL (70-99) 148 mg/dL (70-99) Medications Current Medications Potassium Chloride (Klor-Con) 80 meq 1X ONCE PO Last administered on 04/14/20at 12:37; Start 04/14/20 at 12:30; Stop 04/14/20 at 12:31; Status DC Hydralazine HCl (Apresoline Inj) 10 mg 1X ONCE IVP Last administered on 04/14/20at 13:56; Start 04/14/20 at 13:45; Stop 04/14/20 at 13:46; Status DC Fentanyl Citrate (Fentanyl 2ml Vial) 100 mcg 1X ONCE IVP Last administered on 04/14/20at 15:10; Start 04/14/20 at 15:00; Stop 04/14/20 at 15:01; Status DC Ondansetron HCl (Zofran) 4 mg PRN Q8HRS PRN IV NAUSEA/VOMITING; Start 04/14/20 at 16:00; Stop 04/15/20 at 15:59; Status DC Morphine Sulfate (Morphine Sulfate) 2 mg PRN Q2HR PRN IV PAIN; Start 04/14/20 at 16:00; Stop 04/15/20 at 09:31; Status DC Labetalol HCl (Normodyne Iv Push) 20 mg 1X ONCE IVP Last administered on 04/14/20at 16:30; Start 04/14/20 at 16:15; Stop 04/14/20 at 16:16; Status DC Amlodipine Besylate (Norvasc) 10 mg DAILY PO Last administered on 04/15/20at 10:52; Start 04/15/20 at 10:00 Aspirin (Ecotrin) 81 mg DAILYWBKFT PO Last administered on 04/15/20at 10:52; Start 04/15/20 at 10:00 Atorvastatin Calcium (Lipitor) 20 mg QHS PO ; Start 04/15/20 at 21:00 Insulin Glargine (Lantus Syringe) 8 unit QHS SQ ; Start 04/15/20 at 21:00 Losartan Potassium (Cozaar) 50 mg DAILY PO Last administered on 04/15/20at 10:52; Start 04/15/20 at 10:00 Metoprolol Tartrate (Lopressor) 50 mg BID PO Last administered on 04/15/20at 10:52; Start 04/15/20 at 10:00 Insulin Human Lispro (HumaLOG) 0-7 UNITS TIDWMEALS SQ Last administered on 04/15/20at 13:12; Start 04/15/20 at 12:00 Dextrose (Dextrose 50%-Water Syringe) 12.5 gm PRN Q15MIN PRN IV SEE COMMENTS; Start 04/15/20 at 09:30 Cefdinir (Omnicef) 300 mg BID PO Last administered on 04/15/20at 17:25; Start 04/15/20 at 16:00; Stop 04/25/20 at 15:59 Active Scripts Active Metoprolol Tartrate 50 Mg Tablet 50 Mg PO BID 30 Days Cozaar (Losartan Potassium) 50 Mg Tablet 50 Mg PO DAILY 30 Days Lantus (Insulin Glargine,Hum.rec.anlog) 100 Unit/1 Ml Vial 8 Unit SQ QHS 30 Days Aspirin Ec (Aspirin) 81 Mg Tablet. 81 Mg PO DAILYWBKFT 30 Days Amlodipine Besylate 10 Mg Tablet 10 Mg PO DAILY 30 Days Atorvastatin Calcium 20 Mg Tablet 20 Mg PO QHS 90 Days Vitals/I & O Vital Sign - Last 24 Hours 04/14/20 04/14/20 04/14/20 04/14/20 17:35 18:42 19:00 20:00 Temp 97.2 97.7 97.2 97.7 Pulse 70 73 Resp 20 20 B/P (MAP) 155/87 (109) 152/86 (108) Pulse Ox 97 96 O2 Delivery Room Air Room Air Room Air Room Air 04/14/20 04/15/20 04/15/20 04/15/20 23:02 03:04 07:20 08:25 Temp 97.9 98.4 97.6 97.9 98.4 97.6 Pulse 77 70 77 Resp 20 20 16 B/P (MAP) 152/76 (101) 136/71 (92) 147/84 (105) Pulse Ox 96 96 96 O2 Delivery Room Air Room Air Room Air Room Air 04/15/20 04/15/20 04/15/20 04/15/20 10:52 10:52 10:52 11:28 Temp 97.4 97.4 Pulse 77 77 77 75 Resp 18 B/P (MAP) 147/84 147/84 147/84 147/84 (105) Pulse Ox 94 O2 Delivery Room Air 04/15/20 15:06 Temp 97.9 97.9 Pulse 68 Resp 16 B/P (MAP) 151/74 (99) Pulse Ox 94 O2 Delivery Room Air KARENA SUTTON MD Apr 15, 2020 17:31
[2020-04-15 19:00] VITALS: BP 141/86
[2020-04-15] MEDS: ATORVASTATIN CALCIUM 20 MG TABLET PO SCH (22:28)
[2020-04-15] MEDS: INSULIN GLARGINE SYRINGE. SQ SCH (22:33)
[2020-04-15 23:00] VITALS: BP 143/95
--- NOTE | 2020-04-16 02:22 | NUR ---
Patients heart rate dropping down into 30s and 40s. Patient resting comfortably with no complaints. Notified Dr. Morales. Order received to hold Metoprolol for now. Will continue to monitor.
[2020-04-16 03:00] VITALS: BP 127/79
[2020-04-16 04:11] LABS: BASO % 1 % (0-3); EOS # 0.1 x10^3/uL (0.0-0.7); EOS % 3 % (0-3); HEMATOCRIT 30.9 % (39.0-53.0); HEMOGLOBIN 10.4 g/dL (13.0-17.5); LYMPH # 0.8 x10^3/uL (1.0-4.8); LYMPH % 18 % (24-48); MEAN CORPUSCULAR HEMOGLOBIN 30 pg (25-35); MEAN CORPUSCULAR HGB CONC 34 g/dL (31-37); MEAN CORPUSCULAR VOLUME 89 fL (79-100); MONO # 0.4 x10^3/uL (0.0-1.1); MONO % 9 % (0-9); NEUT # 3.1 x10^3/uL (1.8-7.7); NEUT % 70 % (31-73); PLATELET COUNT 186 x10^3/uL (140-400); RED BLOOD COUNT 3.46 x10^6/uL (4.30-5.70); RED CELL DISTRIBUTION WIDTH 16.3 % (11.5-14.5); WHITE BLOOD COUNT 4.4 x10^3/uL (4.0-11.0)
[2020-04-16 04:35] LABS: CALCIUM 8.3 mg/dL (8.5-10.1); POTASSIUM 3.1 mmol/L (3.5-5.1)
[2020-04-16 07:00] VITALS: BP 156/88
[2020-04-16] MEDS: INSULIN LISPRO 300 UNITS/3 ML VIAL. SQ SCH ×3 (08:00→16:59)
[2020-04-16] MEDS: ASPIRIN ENTERIC COATED 81 MG TABLET.DR. PO SCH (08:19)
[2020-04-16] MEDS: POTASSIUM CHLORIDE 20 MEQ TABLET.ER. PO SCH ×2 (08:20→10:29)
[2020-04-16] MEDS: CEFDINIR 300 MG CAPSULE PO SCH ×2 (08:20→23:13)
[2020-04-16] MEDS: amLODIPine BESYLATE 10 MG TABLET PO SCH (08:20)
[2020-04-16] MEDS: LOSARTAN POTASSIUM 50 MG TABLET. PO SCH (08:20)
--- NOTE | 2020-04-16 10:00 | RAD ---
Complete renal ultrasound COMPARISON: Renal ultrasound September 24, 2019. HISTORY: Acute renal failure. FINDINGS: Right renal length 11.2 cm. Left renal length 11.6 cm. Mild renal cortical thinning. Normal renal parenchymal echogenicity. No renal mass, calculus or hydronephrosis documented. Limited visualization of the lower poles the kidneys due to bowel gas shadowing. Extensive gallbladder sludge is noted. The aorta and IVC are obscured by bowel gas shadowing. Urinary bladder is mildly distended. There is mild abdominal ascites along the dome of the bladder. IMPRESSION: No hydronephrosis. Mild ascites above the dome of the urinary bladder. Gallbladder sludge. Electronically signed by: Huan Powell MD (04/16/2020 9:57 AM) [id number]
[2020-04-16 11:00] VITALS: BP 157/95
--- NOTE | 2020-04-16 11:29 | PDOC ---
PROGRESS NOTES Chief Complaint Chief Complaint Assessment/Plan Hypertensive urgency. Seems to be better controlled and his symptoms have improved with lower numbers reassurance has been provided Chronic kidney disease stage 2 History of atrial fibrillation. Rate controlled. No reported history of atrial fibrillation. Will continue to monitor. Anticoagulation. Right pleural effusion most likely secondary to underlying congestive heart failure does not seem to be of clinical significance. History of congestive heart failure systolic dysfunction, last ejection fraction recorded 40% in October 2019 Hypokalemia. Replaced. Plan Continue titration of blood pressure Appreciate cardiology evaluation recommendation Reassurance provided Wound care consult Continue with antibiotics that were initiated on Friday this week for his right foot ulcer Further recommendations based on the clinical course History of Present Illness History of Present Illness Bradycardia reported overnight most likely due to beta-blockade and also as a consequence of sleep no complaints during my visit, feels well and looking forward to being discharged from the hospital, case discussed with nursing staff patient in no acute distress no complaints during my visit Vitals Vitals Vital Signs Date Time Temp Pulse Resp B/P (MAP) Pulse Ox O2 Delivery O2 Flow Rate FiO2 04/16/20 08:20 66 156/88 04/16/20 07:50 Room Air 04/16/20 07:00 97.8 18 94 97.8 Physical Exam Physical Exam GENERAL: No apparent distress. Alert and oriented. HEENT: Normal cephalic atraumatic, external auditory canals are patent EYES: Extraocular muscles are intact, pupils are equally round and reactive to light and accommodation MUSCULOSKELETAL: Well developed, well nourished, good range of motion ENDOCRINE: No thyromegaly was palpated LYMPHATICS: No cervical chain or axillary nodes were noted HEMATOPOIETIC: No bruising NECK: Supple, no JVD, no thyromegaly was noted. LUNGS: Clear to auscultation in all lung [place] without rhonchi or wheezing. HEART: RRR, S1, S2 present. Peripheral pulses intact, no obvious murmurs were noted. ABDOMEN: Soft, nontender. Positive bowel sounds no organomegaly, normal bowel sounds. EXTREMITIES: He has 3+ edema of the lower extremities. He also has a right foot wound with clean, dry and intact dressing. NEUROLOGIC: Normal speech, normal tone. A & O x3, moves all extremities, no obvious focal deficits. PSYCHIATRIC: Normal affect, normal mood. Stable. SKIN: No ulcerations or rashes, good skin turgor, no jaundice. VASCULAR: Good capillary refill, neurovascular bundle appears to be intact. General: No acute distress Heart: Other (Irregularly irregular) Lungs: Clear, Other Abdomen: Normal bowel sounds Extremities: Other (+2 edema) Labs LABS Laboratory Tests Test 04/15/20 16:06 04/15/20 20:37 04/16/20 03:55 04/16/20 07:06 Glucose (Fingerstick) 148 mg/dL (70-99) 142 mg/dL (70-99) 107 mg/dL (70-99) White Blood Count 4.4 x10^3/uL (4.0-11.0) Red Blood Count 3.46 x10^6/uL (4.30-5.70) Hemoglobin 10.4 g/dL (13.0-17.5) Hematocrit 30.9 % (39.0-53.0) Mean Corpuscular Volume 89 fL (79-100) Mean Corpuscular Hemoglobin 30 pg (25-35) Mean Corpuscular Hemoglobin Concent 34 g/dL (31-37) Red Cell Distribution Width 16.3 % (11.5-14.5) Platelet Count 186 x10^3/uL (140-400) Neutrophils (%) (Auto) 70 % (31-73) Lymphocytes (%) (Auto) 18 % (24-48) Monocytes (%) (Auto) 9 % (0-9) Eosinophils (%) (Auto) 3 % (0-3) Basophils (%) (Auto) 1 % (0-3) Neutrophils # (Auto) 3.1 x10^3/uL (1.8-7.7) Lymphocytes # (Auto) 0.8 x10^3/uL (1.0-4.8) Monocytes # (Auto) 0.4 x10^3/uL (0.0-1.1) Eosinophils # (Auto) 0.1 x10^3/uL (0.0-0.7) Basophils # (Auto) 0.0 x10^3/uL (0.0-0.2) Sodium Level 140 mmol/L (136-145) Potassium Level 3.1 mmol/L (3.5-5.1) Chloride Level 102 mmol/L (98-107) Carbon Dioxide Level 31 mmol/L (21-32) Anion Gap 7 (6-14) Blood Urea Nitrogen 20 mg/dL (8-26) Creatinine 2.0 mg/dL (0.7-1.3) Estimated GFR (Cockcroft-Gault) 34.0 Glucose Level 109 mg/dL (70-99) Calcium Level 8.3 mg/dL (8.5-10.1) Magnesium Level 2.0 mg/dL (1.8-2.4) Test 04/16/20 11:02 Glucose (Fingerstick) 128 mg/dL (70-99) Assessment and Plan Assessmemt and Plan Problems Medical Problems: (1) Edema of both legs Status: Acute (2) Hypertensive urgency Status: Acute (3) Hypokalemia Status: Acute (4) Pleural effusion, right Status: Acute Comment Review of Relevant I have reviewed the following items melinda (where applicable) has been applied. Labs Laboratory Tests Test 04/15/20 05:15 04/15/20 07:16 04/15/20 10:52 04/15/20 16:06 White Blood Count 3.3 x10^3/uL (4.0-11.0) Red Blood Count 3.21 x10^6/uL (4.30-5.70) Hemoglobin 9.6 g/dL (13.0-17.5) Hematocrit 28.7 % (39.0-53.0) Mean Corpuscular Volume 89 fL (79-100) Mean Corpuscular Hemoglobin 30 pg (25-35) Mean Corpuscular Hemoglobin Concent 34 g/dL (31-37) Red Cell Distribution Width 16.0 % (11.5-14.5) Platelet Count 152 x10^3/uL (140-400) Neutrophils (%) (Auto) 70 % (31-73) Lymphocytes (%) (Auto) 17 % (24-48) Monocytes (%) (Auto) 9 % (0-9) Eosinophils (%) (Auto) 3 % (0-3) Basophils (%) (Auto) 1 % (0-3) Neutrophils # (Auto) 2.3 x10^3/uL (1.8-7.7) Lymphocytes # (Auto) 0.6 x10^3/uL (1.0-4.8) Monocytes # (Auto) 0.3 x10^3/uL (0.0-1.1) Eosinophils # (Auto) 0.1 x10^3/uL (0.0-0.7) Basophils # (Auto) 0.0 x10^3/uL (0.0-0.2) Sodium Level 139 mmol/L (136-145) Potassium Level 3.0 mmol/L (3.5-5.1) Chloride Level 102 mmol/L (98-107) Carbon Dioxide Level 30 mmol/L (21-32) Anion Gap 7 (6-14) Blood Urea Nitrogen 17 mg/dL (8-26) Creatinine 1.8 mg/dL (0.7-1.3) Estimated GFR (Cockcroft-Gault) 38.4 BUN/Creatinine Ratio 9 (6-20) Glucose Level 168 mg/dL (70-99) Calcium Level 8.0 mg/dL (8.5-10.1) Total Bilirubin 0.6 mg/dL (0.2-1.0) Aspartate Amino Transf (AST/SGOT) 17 U/L (15-37) Alanine Aminotransferase (ALT/SGPT) 13 U/L (16-63) Alkaline Phosphatase 77 U/L (46-116) Total Protein 6.7 g/dL (6.4-8.2) Albumin 2.4 g/dL (3.4-5.0) Albumin/Globulin Ratio 0.6 (1.0-1.7) Glucose (Fingerstick) 144 mg/dL (70-99) 171 mg/dL (70-99) 148 mg/dL (70-99) Test 04/15/20 20:37 04/16/20 03:55 04/16/20 07:06 04/16/20 11:02 Glucose (Fingerstick) 142 mg/dL (70-99) 107 mg/dL (70-99) 128 mg/dL (70-99) White Blood Count 4.4 x10^3/uL (4.0-11.0) Red Blood Count 3.46 x10^6/uL (4.30-5.70) Hemoglobin 10.4 g/dL (13.0-17.5) Hematocrit 30.9 % (39.0-53.0) Mean Corpuscular Volume 89 fL (79-100) Mean Corpuscular Hemoglobin 30 pg (25-35) Mean Corpuscular Hemoglobin Concent 34 g/dL (31-37) Red Cell Distribution Width 16.3 % (11.5-14.5) Platelet Count 186 x10^3/uL (140-400) Neutrophils (%) (Auto) 70 % (31-73) Lymphocytes (%) (Auto) 18 % (24-48) Monocytes (%) (Auto) 9 % (0-9) Eosinophils (%) (Auto) 3 % (0-3) Basophils (%) (Auto) 1 % (0-3) Neutrophils # (Auto) 3.1 x10^3/uL (1.8-7.7) Lymphocytes # (Auto) 0.8 x10^3/uL (1.0-4.8) Monocytes # (Auto) 0.4 x10^3/uL (0.0-1.1) Eosinophils # (Auto) 0.1 x10^3/uL (0.0-0.7) Basophils # (Auto) 0.0 x10^3/uL (0.0-0.2) Sodium Level 140 mmol/L (136-145) Potassium Level 3.1 mmol/L (3.5-5.1) Chloride Level 102 mmol/L (98-107) Carbon Dioxide Level 31 mmol/L (21-32) Anion Gap 7 (6-14) Blood Urea Nitrogen 20 mg/dL (8-26) Creatinine 2.0 mg/dL (0.7-1.3) Estimated GFR (Cockcroft-Gault) 34.0 Glucose Level 109 mg/dL (70-99) Calcium Level 8.3 mg/dL (8.5-10.1) Magnesium Level 2.0 mg/dL (1.8-2.4) Laboratory Tests Test 04/15/20 16:06 04/15/20 20:37 04/16/20 03:55 04/16/20 07:06 Glucose (Fingerstick) 148 mg/dL (70-99) 142 mg/dL (70-99) 107 mg/dL (70-99) White Blood Count 4.4 x10^3/uL (4.0-11.0) Red Blood Count 3.46 x10^6/uL (4.30-5.70) Hemoglobin 10.4 g/dL (13.0-17.5) Hematocrit 30.9 % (39.0-53.0) Mean Corpuscular Volume 89 fL (79-100) Mean Corpuscular Hemoglobin 30 pg (25-35) Mean Corpuscular Hemoglobin Concent 34 g/dL (31-37) Red Cell Distribution Width 16.3 % (11.5-14.5) Platelet Count 186 x10^3/uL (140-400) Neutrophils (%) (Auto) 70 % (31-73) Lymphocytes (%) (Auto) 18 % (24-48) Monocytes (%) (Auto) 9 % (0-9) Eosinophils (%) (Auto) 3 % (0-3) Basophils (%) (Auto) 1 % (0-3) Neutrophils # (Auto) 3.1 x10^3/uL (1.8-7.7) Lymphocytes # (Auto) 0.8 x10^3/uL (1.0-4.8) Monocytes # (Auto) 0.4 x10^3/uL (0.0-1.1) Eosinophils # (Auto) 0.1 x10^3/uL (0.0-0.7) Basophils # (Auto) 0.0 x10^3/uL (0.0-0.2) Sodium Level 140 mmol/L (136-145) Potassium Level 3.1 mmol/L (3.5-5.1) Chloride Level 102 mmol/L (98-107) Carbon Dioxide Level 31 mmol/L (21-32) Anion Gap 7 (6-14) Blood Urea Nitrogen 20 mg/dL (8-26) Creatinine 2.0 mg/dL (0.7-1.3) Estimated GFR (Cockcroft-Gault) 34.0 Glucose Level 109 mg/dL (70-99) Calcium Level 8.3 mg/dL (8.5-10.1) Magnesium Level 2.0 mg/dL (1.8-2.4) Test 04/16/20 11:02 Glucose (Fingerstick) 128 mg/dL (70-99) Medications Current Medications Potassium Chloride (Klor-Con) 80 meq 1X ONCE PO Last administered on 04/14/20at 12:37; Start 04/14/20 at 12:30; Stop 04/14/20 at 12:31; Status DC Hydralazine HCl (Apresoline Inj) 10 mg 1X ONCE IVP Last administered on 04/14/20at 13:56; Start 04/14/20 at 13:45; Stop 04/14/20 at 13:46; Status DC Fentanyl Citrate (Fentanyl 2ml Vial) 100 mcg 1X ONCE IVP Last administered on 04/14/20at 15:10; Start 04/14/20 at 15:00; Stop 04/14/20 at 15:01; Status DC Ondansetron HCl (Zofran) 4 mg PRN Q8HRS PRN IV NAUSEA/VOMITING; Start 04/14/20 at 16:00; Stop 04/15/20 at 15:59; Status DC Morphine Sulfate (Morphine Sulfate) 2 mg PRN Q2HR PRN IV PAIN; Start 04/14/20 at 16:00; Stop 04/15/20 at 09:31; Status DC Labetalol HCl (Normodyne Iv Push) 20 mg 1X ONCE IVP Last administered on 04/14/20at 16:30; Start 04/14/20 at 16:15; Stop 04/14/20 at 16:16; Status DC Amlodipine Besylate (Norvasc) 10 mg DAILY PO Last administered on 04/16/20 08:20; Start 04/15/20 at 10:00 Aspirin (Ecotrin) 81 mg DAILYWBKFT PO Last administered on 04/16/20at 08:19; Start 04/15/20 at 10:00 Atorvastatin Calcium (Lipitor) 20 mg QHS PO Last administered on 04/15/20at 22:28; Start 04/15/20 at 21:00 Insulin Glargine (Lantus Syringe) 8 unit QHS SQ Last administered on 04/15/20at 22:33; Start 04/15/20 at 21:00 Losartan Potassium (Cozaar) 50 mg DAILY PO Last administered on 04/16/20at 08:20; Start 04/15/20 at 10:00 Metoprolol Tartrate (Lopressor) 50 mg BID PO Last administered on 04/15/20at 22:29; Start 04/15/20 at 10:00; Stop 04/16/20 at 02:32; Status DC Insulin Human Lispro (HumaLOG) 0-7 UNITS TIDWMEALS SQ Last administered on 6/6/20at 13:12; Start 04/15/20 at 12:00 Dextrose (Dextrose 50%-Water Syringe) 12.5 gm PRN Q15MIN PRN IV SEE COMMENTS; Start 04/15/20 at 09:30 Cefdinir (Omnicef) 300 mg BID PO Last administered on 04/16/20at 08:20; Start 04/15/20 at 16:00; Stop 04/25/20 at 15:59 Potassium Chloride (Klor-Con) 40 meq Q2H PO Last administered on 04/16/20at 10:29; Start 04/16/20 at 07:30; Stop 04/16/20 at 09:31; Status DC Active Scripts Active Metoprolol Tartrate 50 Mg Tablet 50 Mg PO BID 30 Days Cozaar (Losartan Potassium) 50 Mg Tablet 50 Mg PO DAILY 30 Days Lantus (Insulin Glargine,Hum.rec.anlog) 100 Unit/1 Ml Vial 8 Unit SQ QHS 30 Days Aspirin Ec (Aspirin) 81 Mg Tablet. 81 Mg PO DAILYWBKFT 30 Days Amlodipine Besylate 10 Mg Tablet 10 Mg PO DAILY 30 Days Atorvastatin Calcium 20 Mg Tablet 20 Mg PO QHS 90 Days Vitals/I & O Vital Sign - Last 24 Hours 04/15/20 04/15/20 04/15/20 04/15/20 15:06 19:00 20:00 22:29 Temp 97.9 98.1 97.9 98.1 Pulse 68 65 65 Resp 16 20 B/P (MAP) 151/74 (99) 141/86 (104) 141/86 Pulse Ox 94 95 O2 Delivery Room Air Room Air Room Air 04/15/20 04/16/20 04/16/20 04/16/20 23:00 03:00 07:00 07:50 Temp 98.0 98.1 97.8 98.0 98.1 97.8 Pulse 70 62 66 Resp 18 16 18 B/P (MAP) 143/95 (111) 127/79 (95) 156/88 (110) Pulse Ox 96 97 94 O2 Delivery Room Air Room Air Room Air Room Air 04/16/20 04/16/20 08:20 08:20 Pulse 66 66 B/P (MAP) 156/88 156/88 Intake and Output 04/15/20 04/15/20 04/16/20 15:00 23:00 07:00 Intake Total 700 ml 410 ml 60 ml Balance 700 ml 410 ml 60 ml KARENA SUTTON MD Apr 16, 2020 11:29
[2020-04-16 15:00] VITALS: BP 140/84
--- NOTE | 2020-04-16 15:12 | PDOC ---
PROGRESS NOTES Subjective Subjective Patient seen and examined Objective Objective Vital Signs Date Time Temp Pulse Resp B/P (MAP) Pulse Ox O2 Delivery O2 Flow Rate FiO2 04/16/20 11:00 97.8 60 18 157/95 (115) 97 Room Air 97.8 Intake and Output 04/16/20 07:00 Intake Total 1170 ml Balance 1170 ml Intake Oral 1170 ml # Voids 4 # Bowel Movements 1 Physical Exam Abdomen: Normal bowel sounds Heart: Regular rate General: mild distress Lungs: Clear to auscultation Assessment Assessment Problems Medical Problems: (1) Edema of both legs Status: Acute (2) Hypertensive urgency Status: Acute (3) Hypokalemia Status: Acute (4) Pleural effusion, right Status: Acute 1. Hypertensive urgency. Blood pressure is improved. We will continue present treatment and adjust as needed. 2. Hypokalemia. Replaced. Continuing to monitor. 3. Possible ABDI. Creatinine of 1.8. Following lab. 4. Atrial fibrillation. Rate controlled. No reported history of atrial fibrillation. Will continue to monitor. Anticoagulation not started yesterday due to mildly decreased H/H. Lab is improved today. Will start anticoagulation and monitor rhythm. 5. Right pleural effusion. 6. Possible acute mixed heart failure. Severe hypertension as above as well as an ejection fraction of 40% on a nuclear stress test in October 2019. Medications as above. We will recheck an echocardiogram. Comment Review of Relevant I have reviewed the following items melinda (where applicable) has been applied. Labs Laboratory Tests Test 04/15/20 05:15 04/15/20 07:16 04/15/20 10:52 04/15/20 16:06 White Blood Count 3.3 x10^3/uL (4.0-11.0) Red Blood Count 3.21 x10^6/uL (4.30-5.70) Hemoglobin 9.6 g/dL (13.0-17.5) Hematocrit 28.7 % (39.0-53.0) Mean Corpuscular Volume 89 fL (79-100) Mean Corpuscular Hemoglobin 30 pg (25-35) Mean Corpuscular Hemoglobin Concent 34 g/dL (31-37) Red Cell Distribution Width 16.0 % (11.5-14.5) Platelet Count 152 x10^3/uL (140-400) Neutrophils (%) (Auto) 70 % (31-73) Lymphocytes (%) (Auto) 17 % (24-48) Monocytes (%) (Auto) 9 % (0-9) Eosinophils (%) (Auto) 3 % (0-3) Basophils (%) (Auto) 1 % (0-3) Neutrophils # (Auto) 2.3 x10^3/uL (1.8-7.7) Lymphocytes # (Auto) 0.6 x10^3/uL (1.0-4.8) Monocytes # (Auto) 0.3 x10^3/uL (0.0-1.1) Eosinophils # (Auto) 0.1 x10^3/uL (0.0-0.7) Basophils # (Auto) 0.0 x10^3/uL (0.0-0.2) Sodium Level 139 mmol/L (136-145) Potassium Level 3.0 mmol/L (3.5-5.1) Chloride Level 102 mmol/L (98-107) Carbon Dioxide Level 30 mmol/L (21-32) Anion Gap 7 (6-14) Blood Urea Nitrogen 17 mg/dL (8-26) Creatinine 1.8 mg/dL (0.7-1.3) Estimated GFR (Cockcroft-Gault) 38.4 BUN/Creatinine Ratio 9 (6-20) Glucose Level 168 mg/dL (70-99) Calcium Level 8.0 mg/dL (8.5-10.1) Total Bilirubin 0.6 mg/dL (0.2-1.0) Aspartate Amino Transf (AST/SGOT) 17 U/L (15-37) Alanine Aminotransferase (ALT/SGPT) 13 U/L (16-63) Alkaline Phosphatase 77 U/L (46-116) Total Protein 6.7 g/dL (6.4-8.2) Albumin 2.4 g/dL (3.4-5.0) Albumin/Globulin Ratio 0.6 (1.0-1.7) Glucose (Fingerstick) 144 mg/dL (70-99) 171 mg/dL (70-99) 148 mg/dL (70-99) Test 04/15/20 20:37 04/16/20 03:55 04/16/20 07:06 04/16/20 11:02 Glucose (Fingerstick) 142 mg/dL (70-99) 107 mg/dL (70-99) 128 mg/dL (70-99) White Blood Count 4.4 x10^3/uL (4.0-11.0) Red Blood Count 3.46 x10^6/uL (4.30-5.70) Hemoglobin 10.4 g/dL (13.0-17.5) Hematocrit 30.9 % (39.0-53.0) Mean Corpuscular Volume 89 fL (79-100) Mean Corpuscular Hemoglobin 30 pg (25-35) Mean Corpuscular Hemoglobin Concent 34 g/dL (31-37) Red Cell Distribution Width 16.3 % (11.5-14.5) Platelet Count 186 x10^3/uL (140-400) Neutrophils (%) (Auto) 70 % (31-73) Lymphocytes (%) (Auto) 18 % (24-48) Monocytes (%) (Auto) 9 % (0-9) Eosinophils (%) (Auto) 3 % (0-3) Basophils (%) (Auto) 1 % (0-3) Neutrophils # (Auto) 3.1 x10^3/uL (1.8-7.7) Lymphocytes # (Auto) 0.8 x10^3/uL (1.0-4.8) Monocytes # (Auto) 0.4 x10^3/uL (0.0-1.1) Eosinophils # (Auto) 0.1 x10^3/uL (0.0-0.7) Basophils # (Auto) 0.0 x10^3/uL (0.0-0.2) Sodium Level 140 mmol/L (136-145) Potassium Level 3.1 mmol/L (3.5-5.1) Chloride Level 102 mmol/L (98-107) Carbon Dioxide Level 31 mmol/L (21-32) Anion Gap 7 (6-14) Blood Urea Nitrogen 20 mg/dL (8-26) Creatinine 2.0 mg/dL (0.7-1.3) Estimated GFR (Cockcroft-Gault) 34.0 Glucose Level 109 mg/dL (70-99) Calcium Level 8.3 mg/dL (8.5-10.1) Magnesium Level 2.0 mg/dL (1.8-2.4) Laboratory Tests Test 04/15/20 16:06 04/15/20 20:37 04/16/20 03:55 04/16/20 07:06 Glucose (Fingerstick) 148 mg/dL (70-99) 142 mg/dL (70-99) 107 mg/dL (70-99) White Blood Count 4.4 x10^3/uL (4.0-11.0) Red Blood Count 3.46 x10^6/uL (4.30-5.70) Hemoglobin 10.4 g/dL (13.0-17.5) Hematocrit 30.9 % (39.0-53.0) Mean Corpuscular Volume 89 fL (79-100) Mean Corpuscular Hemoglobin 30 pg (25-35) Mean Corpuscular Hemoglobin Concent 34 g/dL (31-37) Red Cell Distribution Width 16.3 % (11.5-14.5) Platelet Count 186 x10^3/uL (140-400) Neutrophils (%) (Auto) 70 % (31-73) Lymphocytes (%) (Auto) 18 % (24-48) Monocytes (%) (Auto) 9 % (0-9) Eosinophils (%) (Auto) 3 % (0-3) Basophils (%) (Auto) 1 % (0-3) Neutrophils # (Auto) 3.1 x10^3/uL (1.8-7.7) Lymphocytes # (Auto) 0.8 x10^3/uL (1.0-4.8) Monocytes # (Auto) 0.4 x10^3/uL (0.0-1.1) Eosinophils # (Auto) 0.1 x10^3/uL (0.0-0.7) Basophils # (Auto) 0.0 x10^3/uL (0.0-0.2) Sodium Level 140 mmol/L (136-145) Potassium Level 3.1 mmol/L (3.5-5.1) Chloride Level 102 mmol/L (98-107) Carbon Dioxide Level 31 mmol/L (21-32) Anion Gap 7 (6-14) Blood Urea Nitrogen 20 mg/dL (8-26) Creatinine 2.0 mg/dL (0.7-1.3) Estimated GFR (Cockcroft-Gault) 34.0 Glucose Level 109 mg/dL (70-99) Calcium Level 8.3 mg/dL (8.5-10.1) Magnesium Level 2.0 mg/dL (1.8-2.4) Test 04/16/20 11:02 Glucose (Fingerstick) 128 mg/dL (70-99) Medications Current Medications Potassium Chloride (Klor-Con) 80 meq 1X ONCE PO Last administered on 04/14/20at 12:37; Start 04/14/20 at 12:30; Stop 04/14/20 at 12:31; Status DC Hydralazine HCl (Apresoline Inj) 10 mg 1X ONCE IVP Last administered on 04/14/20at 13:56; Start 04/14/20 at 13:45; Stop 04/14/20 at 13:46; Status DC Fentanyl Citrate (Fentanyl 2ml Vial) 100 mcg 1X ONCE IVP Last administered on 04/14/20at 15:10; Start 04/14/20 at 15:00; Stop 04/14/20 at 15:01; Status DC Ondansetron HCl (Zofran) 4 mg PRN Q8HRS PRN IV NAUSEA/VOMITING; Start 04/14/20 at 16:00; Stop 04/15/20 at 15:59; Status DC Morphine Sulfate (Morphine Sulfate) 2 mg PRN Q2HR PRN IV PAIN; Start 04/14/20 at 16:00; Stop 04/15/20 at 09:31; Status DC Labetalol HCl (Normodyne Iv Push) 20 mg 1X ONCE IVP Last administered on 04/14/20at 16:30; Start 04/14/20 at 16:15; Stop 04/14/20 at 16:16; Status DC Amlodipine Besylate (Norvasc) 10 mg DAILY PO Last administered on 04/16/20at 08:20; Start 04/15/20 at 10:00 Aspirin (Ecotrin) 81 mg DAILYWBKFT PO Last administered on 04/16/20at 08:19; Start 04/15/20 at 10:00 Atorvastatin Calcium (Lipitor) 20 mg QHS PO Last administered on 04/15/20at 22:28; Start 04/15/20 at 21:00 Insulin Glargine (Lantus Syringe) 8 unit QHS SQ Last administered on 04/15/20at 22:33; Start 04/15/20 at 21:00 Losartan Potassium (Cozaar) 50 mg DAILY PO Last administered on 04/16/20at 08:20; Start 04/15/20 at 10:00 Metoprolol Tartrate (Lopressor) 50 mg BID PO Last administered on 04/15/20at 22:29; Start 04/15/20 at 10:00; Stop 04/16/20 at 02:32; Status DC Insulin Human Lispro (HumaLOG) 0-7 UNITS TIDWMEALS SQ Last administered on 04/15/20at 13:12; Start 04/15/20 at 12:00 Dextrose (Dextrose 50%-Water Syringe) 12.5 gm PRN Q15MIN PRN IV SEE COMMENTS; Start 04/15/20 at 09:30 Cefdinir (Omnicef) 300 mg BID PO Last administered on 04/16/20at 08:20; Start 04/15/20 at 16:00; Stop 04/25/20 at 15:59 Potassium Chloride (Klor-Con) 40 meq Q2H PO Last administered on 04/16/20at 10:29; Start 04/16/20 at 07:30; Stop 04/16/20 at 09:31; Status DC Active Scripts Active Metoprolol Tartrate 50 Mg Tablet 50 Mg PO BID 30 Days Cozaar (Losartan Potassium) 50 Mg Tablet 50 Mg PO DAILY 30 Days Lantus (Insulin Glargine,Hum.rec.anlog) 100 Unit/1 Ml Vial 8 Unit SQ QHS 30 Days Aspirin Ec (Aspirin) 81 Mg Tablet. 81 Mg PO DAILYWBKFT 30 Days Amlodipine Besylate 10 Mg Tablet 10 Mg PO DAILY 30 Days Atorvastatin Calcium 20 Mg Tablet 20 Mg PO QHS 90 Days Vitals/I & O Vital Sign - Last 24 Hours 04/15/20 04/15/20 04/15/20 04/15/20 19:00 20:00 22:29 23:00 Temp 98.1 98.0 98.1 98.0 Pulse 65 65 70 Resp 20 18 B/P (MAP) 141/86 (104) 141/86 143/95 (111) Pulse Ox 95 96 O2 Delivery Room Air Room Air Room Air 04/16/20 04/16/20 04/16/20 04/16/20 03:00 07:00 07:50 08:20 Temp 98.1 97.8 98.1 97.8 Pulse 62 66 66 Resp 16 18 B/P (MAP) 127/79 (95) 156/88 (110) 156/88 Pulse Ox 97 94 O2 Delivery Room Air Room Air Room Air 04/16/20 04/16/20 08:20 11:00 Temp 97.8 97.8 Pulse 66 60 Resp 18 B/P (MAP) 156/88 157/95 (115) Pulse Ox 97 O2 Delivery Room Air Intake and Output 04/15/20 04/15/20 04/16/20 15:00 23:00 07:00 Intake Total 700 ml 410 ml 60 ml Balance 700 ml 410 ml 60 ml NACOH DENIS MD Apr 16, 2020 15:12
--- NOTE | 2020-04-16 16:03 | CARD ---
MR#: [id number] Date of Study: 04/16/2020 Ordering Physician: NACHO ABAD, Referring Physician: NACHO ABAD, Tech: Lee Ann Medley [facility] APPROVED REPORT EXAM: Two-dimensional and M-mode echocardiogram with Doppler and color Doppler. Other Information Quality : GoodHR: 55bpm Rhythm : Bradycardia INDICATION Congestive Heart Failure 2D DIMENSIONS RVDd2.6 (2.9-3.5cm)Left Atrium(2D)4.6 (1.6-4.0cm) IVSd1.7 (0.7-1.1cm)Aortic Root(2D)3.1 (2.0-3.7cm) LVDd4.6 (3.9-5.9cm)LVOT Diameter2.0 (1.8-2.4cm) PWd1.3 (0.7-1.1cm)LVDs3.3 (2.5-4.0cm) FS (%) 27.7 %SV51.2 ml M-Mode DIMENSIONS Left Atrium(MM)4.49 (2.5-4.0cm)Aortic Root3.05 (2.2-3.7cm) Aortic Valve AoV Peak Anton.122.6cm/sAoV VTI21.7cm AO Peak GR.6.0mmHgLVOT VTI 18.09cm AO Mean GR.4mmHgAVA (VTI)2.60cm2 Mitral Valve MV E Vczpkbzi68.4cm/sMV E Peak Gr.6mmHg MV DECEL [id number] A Xdqwjras11.5cm/s MV E Mean Gr.2mmHgE/A Ratio3.2 TDI Lateral E' P. V9.65cm/sE/Lateral E'10.0 Tricuspid Valve TR P. [id number]/sRAP [id number] TR Peak Gr.[id number] LEFT VENTRICLE The left ventricle is normal size. There is mild concentric left ventricular hypertrophy. Left ventri denis systolic function is low normal. The Ejection Fraction is estimated at 50%. There is normal LV se gmental wall motion. Transmitral Doppler flow pattern is abnormal. RIGHT VENTRICLE The right ventricle is normal size. There is normal right ventricular wall thickness. The right ventr icular systolic function is normal. ATRIA The left atrium is mildly dilated. The right atrium size is normal. The interatrial septum is intact with no evidence for an atrial septal defect or patent foramen ovale as noted on 2-D or Doppler imagi ng. AORTIC VALVE The aortic valve is normal in structure and function. The aortic valve is mildly calcified. Doppler a nd Color Flow revealed no significant aortic regurgitation. There is no significant aortic valvular s tenosis. MITRAL VALVE The mitral valve is normal in structure and function. The mitral valve is thickened but opens well. T here is no evidence of mitral valve prolapse. There is no mitral valve stenosis. Doppler and Color-fl ow revealed trace to mild mitral regurgitation. TRICUSPID VALVE The tricuspid valve is normal in structure and function. Doppler and Color Flow revealed mild tricusp id regurgitation. The PA pressure was estimated at 40 mmHg. There is no tricuspid valve prolapse or v egetation. There is no tricuspid valve stenosis. PULMONIC VALVE The pulmonary valve is normal in structure and function. GREAT VESSELS The aortic root is normal in size. The ascending aorta is normal in size. The IVC is dilated. PERICARDIAL EFFUSION There is no evidence of significant pericardial effusion. Critical Notification Critical Value: No <Conclusion> The left ventricle is normal size. Left ventricle systolic function is low normal. The Ejection Fraction is estimated at 50%. There is mild concentric left ventricular hypertrophy. Doppler and Color Flow revealed no significant aortic regurgitation. There is no significant aortic valvular stenosis. Doppler and Color-flow revealed trace to mild mitral regurgitation. Doppler and Color Flow revealed mild tricuspid regurgitation. The PA pressure was estimated at 40 mmHg. Signed by : Nacho Abad MD Electronically Approved : 04/16/2020 16:02:56
[2020-04-16 19:25] VITALS: BP 144/82
[2020-04-16 23:00] VITALS: BP 145/83
[2020-04-16] MEDS: APIXABAN 5 MG TABLET. PO SCH (23:13)
[2020-04-16] MEDS: ATORVASTATIN CALCIUM 20 MG TABLET PO SCH (23:13)
[2020-04-16] MEDS: INSULIN GLARGINE SYRINGE. SQ SCH (23:16)
[2020-04-17 03:00] VITALS: BP 168/89
[2020-04-17 07:00] VITALS: BP 159/96
[2020-04-17 07:41] LABS: CALCIUM 8.5 mg/dL (8.5-10.1); CREATININE 1.9 mg/dL (0.7-1.3); GFR 36.1; POTASSIUM 3.6 mmol/L (3.5-5.1)
[2020-04-17 07:52] LABS: BASO % 1 % (0-3); EOS # 0.1 x10^3/uL (0.0-0.7); EOS % 3 % (0-3); HEMATOCRIT 31.5 % (39.0-53.0); HEMOGLOBIN 10.6 g/dL (13.0-17.5); LYMPH # 0.8 x10^3/uL (1.0-4.8); LYMPH % 19 % (24-48); MEAN CORPUSCULAR HEMOGLOBIN 30 pg (25-35); MEAN CORPUSCULAR HGB CONC 34 g/dL (31-37); MEAN CORPUSCULAR VOLUME 89 fL (79-100); MONO # 0.3 x10^3/uL (0.0-1.1); MONO % 7 % (0-9); NEUT # 2.8 x10^3/uL (1.8-7.7); NEUT % 70 % (31-73); PLATELET COUNT 201 x10^3/uL (140-400); RED BLOOD COUNT 3.53 x10^6/uL (4.30-5.70); RED CELL DISTRIBUTION WIDTH 16.3 % (11.5-14.5)
[2020-04-17] MEDS: INSULIN LISPRO 300 UNITS/3 ML VIAL. SQ SCH ×3 (08:00→17:00)
[2020-04-17] MEDS: LOSARTAN POTASSIUM 50 MG TABLET. PO SCH (10:57)
[2020-04-17] MEDS: CEFDINIR 300 MG CAPSULE PO SCH ×2 (10:57→20:30)
[2020-04-17] MEDS: APIXABAN 5 MG TABLET. PO SCH ×2 (10:57→20:30)
[2020-04-17] MEDS: ASPIRIN ENTERIC COATED 81 MG TABLET.DR. PO SCH (10:57)
[2020-04-17] MEDS: amLODIPine BESYLATE 10 MG TABLET PO SCH (10:57)
[2020-04-17 11:05] VITALS: BP 162/98
--- NOTE | 2020-04-17 12:11 | EKG ---
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 NONSPECIFIC ST-T WAVE CHANGES. Electronically Signed On 04-21-2020 16:01:28 CDT by Pranav Abad
--- NOTE | 2020-04-17 13:34 | NUR ---
JATINDER following for discharge planning. Reviewed pt's record. Met with pt. Pt a/o and able to make needs known. Pt reported he lives at home alone and plans to return at discharge. pt stated he has out-patient wound care at [facility] in addition to services from the [facility]. Pt stated he wants [facility] at [facility] and to call to them to find out about his current services. SW completed Patient Choice of Vendor form. JATINDER called and spoke with Oj who stated pt sees Dr. Gaspar through the [facility] program and that pt also has [facility]. SW to fax discharge orders to both the [facility] ([phone], ext [phone], (fax) and [facility] at discharge ([phone], (fax). Pt is also working with the [facility] social work coordinator to move from his house to an [facility] community per Oj. SW to continue following. Addendum: 04/17/20 at 1643 by KHURRAM TOBIAS SW notified of discharge orders. JATINDER requested HH orders from Dr. Morales. JATINDER informed by Dr. Morales that pt will not discharge today, 04/17/2020. [facility] notified of potential discharge for 04/18. SSW to continue following.
[2020-04-17] MEDS ORDERED: APIX5TAB PO (14:03)
[2020-04-17] MEDS ORDERED: POTA20TA4 PO (14:03)
[2020-04-17] MEDS ORDERED: FURO-68 PO (14:03)
--- NOTE | 2020-04-17 14:33 | NUR ---
Wound Care Patient is current wound care patient and was seen in clinic last week. Wound Type/Assessment: right plantar foot wound- original ulcer is pale pink mild odor, large purple blister distal to original ulcer that was not present on admission Right lower leg has VLU with red non-granulated bed. Treatment Recommendations/Plan: Dressed foot with iodoflex, abd and kerlix. RLL dressed with xeroform and foam. Education provided: Pt educated on POC and PU prevention, Offloading surface/device: none Recommended Referrals/Tests: MRI, arterial doppler, vascular surgery Discharge Recommendations for dressings: pending treatment Addendum: 04/17/20 at 1503 by OLEG CRONIN RN Dr Neely consulted per protocol on DFU. Doppler, ID and Vascular ordered to assess worsening wound.
--- NOTE | 2020-04-17 14:34 | PDOC3 ---
Discharge Summary Visit Information Date of Admission: Apr 14, 2020 Date of Discharge: Apr 17, 2020 Admitting Diagnosis Comment: Severe but emergent hypertension, hypokalemia, noncompliance, chronic renal insufficiency, wounds, anemia and heart failure. Final Diagnosis Problems Medical Problems: (1) Edema of both legs Status: Acute (2) Hypertensive urgency Status: Acute (3) Hypokalemia Status: Acute (4) Pleural effusion, right Status: Acute Hypertensive urgency. Seems to be better controlled and his symptoms have improved with lower numbers reassurance has been provided Chronic kidney disease stage 2 History of atrial fibrillation. Rate controlled. No reported history of atrial fibrillation. started Anticoagulation. Right pleural effusion does not seem to be of clinical significance. History of congestive heart failure systolic dysfunction, last ejection fraction recorded 40% in October 2019 EF now at 50% Hypokalemia. Replaced. Brief Hospital Course Allergies Allergies Coded Allergies Type Severity Reaction Last Updated Verified No Known Drug Allergies 05/21/17 No Vital Signs Vital Signs Date Time Temp Pulse Resp B/P (MAP) Pulse Ox O2 Delivery O2 Flow Rate FiO2 04/17/20 11:05 97.9 70 19 162/98 (119) 95 Room Air 97.9 Lab Results Laboratory Tests Test 04/15/20 16:06 04/15/20 20:37 04/16/20 03:55 04/16/20 07:06 Glucose (Fingerstick) 148 mg/dL (70-99) 142 mg/dL (70-99) 107 mg/dL (70-99) White Blood Count 4.4 x10^3/uL (4.0-11.0) Red Blood Count 3.46 x10^6/uL (4.30-5.70) Hemoglobin 10.4 g/dL (13.0-17.5) Hematocrit 30.9 % (39.0-53.0) Mean Corpuscular Volume 89 fL (79-100) Mean Corpuscular Hemoglobin 30 pg (25-35) Mean Corpuscular Hemoglobin Concent 34 g/dL (31-37) Red Cell Distribution Width 16.3 % (11.5-14.5) Platelet Count 186 x10^3/uL (140-400) Neutrophils (%) (Auto) 70 % (31-73) Lymphocytes (%) (Auto) 18 % (24-48) Monocytes (%) (Auto) 9 % (0-9) Eosinophils (%) (Auto) 3 % (0-3) Basophils (%) (Auto) 1 % (0-3) Neutrophils # (Auto) 3.1 x10^3/uL (1.8-7.7) Lymphocytes # (Auto) 0.8 x10^3/uL (1.0-4.8) Monocytes # (Auto) 0.4 x10^3/uL (0.0-1.1) Eosinophils # (Auto) 0.1 x10^3/uL (0.0-0.7) Basophils # (Auto) 0.0 x10^3/uL (0.0-0.2) Sodium Level 140 mmol/L (136-145) Potassium Level 3.1 mmol/L (3.5-5.1) Chloride Level 102 mmol/L (98-107) Carbon Dioxide Level 31 mmol/L (21-32) Anion Gap 7 (6-14) Blood Urea Nitrogen 20 mg/dL (8-26) Creatinine 2.0 mg/dL (0.7-1.3) Estimated GFR (Cockcroft-Gault) 34.0 Glucose Level 109 mg/dL (70-99) Calcium Level 8.3 mg/dL (8.5-10.1) Magnesium Level 2.0 mg/dL (1.8-2.4) Test 04/16/20 11:02 04/16/20 16:34 04/16/20 20:42 04/17/20 06:20 Glucose (Fingerstick) 128 mg/dL (70-99) 135 mg/dL (70-99) 162 mg/dL (70-99) White Blood Count 4.0 x10^3/uL (4.0-11.0) Red Blood Count 3.53 x10^6/uL (4.30-5.70) Hemoglobin 10.6 g/dL (13.0-17.5) Hematocrit 31.5 % (39.0-53.0) Mean Corpuscular Volume 89 fL (79-100) Mean Corpuscular Hemoglobin 30 pg (25-35) Mean Corpuscular Hemoglobin Concent 34 g/dL (31-37) Red Cell Distribution Width 16.3 % (11.5-14.5) Platelet Count 201 x10^3/uL (140-400) Neutrophils (%) (Auto) 70 % (31-73) Lymphocytes (%) (Auto) 19 % (24-48) Monocytes (%) (Auto) 7 % (0-9) Eosinophils (%) (Auto) 3 % (0-3) Basophils (%) (Auto) 1 % (0-3) Neutrophils # (Auto) 2.8 x10^3/uL (1.8-7.7) Lymphocytes # (Auto) 0.8 x10^3/uL (1.0-4.8) Monocytes # (Auto) 0.3 x10^3/uL (0.0-1.1) Eosinophils # (Auto) 0.1 x10^3/uL (0.0-0.7) Basophils # (Auto) 0.0 x10^3/uL (0.0-0.2) Sodium Level 140 mmol/L (136-145) Potassium Level 3.6 mmol/L (3.5-5.1) Chloride Level 103 mmol/L (98-107) Carbon Dioxide Level 29 mmol/L (21-32) Anion Gap 8 (6-14) Blood Urea Nitrogen 23 mg/dL (8-26) Creatinine 1.9 mg/dL (0.7-1.3) Estimated GFR (Cockcroft-Gault) 36.1 Glucose Level 110 mg/dL (70-99) Calcium Level 8.5 mg/dL (8.5-10.1) Test 04/17/20 07:20 04/17/20 11:37 Glucose (Fingerstick) 95 mg/dL (70-99) 128 mg/dL (70-99) Laboratory Tests Test 04/16/20 16:34 04/16/20 20:42 04/17/20 06:20 04/17/20 07:20 Glucose (Fingerstick) 135 mg/dL (70-99) 162 mg/dL (70-99) 95 mg/dL (70-99) White Blood Count 4.0 x10^3/uL (4.0-11.0) Red Blood Count 3.53 x10^6/uL (4.30-5.70) Hemoglobin 10.6 g/dL (13.0-17.5) Hematocrit 31.5 % (39.0-53.0) Mean Corpuscular Volume 89 fL (79-100) Mean Corpuscular Hemoglobin 30 pg (25-35) Mean Corpuscular Hemoglobin Concent 34 g/dL (31-37) Red Cell Distribution Width 16.3 % (11.5-14.5) Platelet Count 201 x10^3/uL (140-400) Neutrophils (%) (Auto) 70 % (31-73) Lymphocytes (%) (Auto) 19 % (24-48) Monocytes (%) (Auto) 7 % (0-9) Eosinophils (%) (Auto) 3 % (0-3) Basophils (%) (Auto) 1 % (0-3) Neutrophils # (Auto) 2.8 x10^3/uL (1.8-7.7) Lymphocytes # (Auto) 0.8 x10^3/uL (1.0-4.8) Monocytes # (Auto) 0.3 x10^3/uL (0.0-1.1) Eosinophils # (Auto) 0.1 x10^3/uL (0.0-0.7) Basophils # (Auto) 0.0 x10^3/uL (0.0-0.2) Sodium Level 140 mmol/L (136-145) Potassium Level 3.6 mmol/L (3.5-5.1) Chloride Level 103 mmol/L (98-107) Carbon Dioxide Level 29 mmol/L (21-32) Anion Gap 8 (6-14) Blood Urea Nitrogen 23 mg/dL (8-26) Creatinine 1.9 mg/dL (0.7-1.3) Estimated GFR (Cockcroft-Gault) 36.1 Glucose Level 110 mg/dL (70-99) Calcium Level 8.5 mg/dL (8.5-10.1) Test 04/17/20 11:37 Glucose (Fingerstick) 128 mg/dL (70-99) Brief Hospital Course Mr. Duval is a 60 old male hypertensive urgency as documented in the initial history of physical. The patient was seen in consultation by cardiology he was started on who presented with the above-mentioned hypertensive urgency that was treated with hydralazine and labetalol. The patient was seen in consultation by cardiology and given her history of depressed ejection fraction reported at 40% and new echocardiogram was requested. The patient was found to have no significant valvular abnormalities he has an ejection fraction of 50% now and his hypertension has certainly improved. There were some events of bradycardia during his hospital stay that were due to his blue beta-blockade. At the present time he is in no acute distress and asymptomatic. Of note is that he has a chronic wound on his lower extremity that has been taken care of by the wound clinic in the outpatient setting and was started on antibiotics last Friday. He has continued his antibiotics while being inpatient with us and the only change to her medication regimen will be the addition of Lasix potassium supplement and also anticoagulation with apixaban as recommended by cardiology for his atrial fibrillation. Patient is in good spirits to be discharged home and he will [facility]. Signs and symptoms of concern when to seek medical attention was discussed with Mr. Duval prior to dismissal and he acknowledged understanding of all the recommendations Assessment Assessment GENERAL: No apparent distress. Alert and oriented. HEENT: Normal cephalic atraumatic, external auditory canals are patent EYES: Extraocular muscles are intact, pupils are equally round and reactive to light and accommodation MUSCULOSKELETAL: Well developed, well nourished, good range of motion ENDOCRINE: No thyromegaly was palpated LYMPHATICS: No cervical chain or axillary nodes were noted HEMATOPOIETIC: No bruising NECK: Supple, no JVD, no thyromegaly was noted. LUNGS: Clear to auscultation in all lung santana without rhonchi or wheezing. HEART: RRR, S1, S2 present. Peripheral pulses intact, no obvious murmurs were noted. ABDOMEN: Soft, nontender. Positive bowel sounds no organomegaly, normal bowel sounds. EXTREMITIES: He has 3+ edema of the lower extremities. He also has a right foot wound with clean, dry and intact dressing. NEUROLOGIC: Normal speech, normal tone. A & O x3, moves all extremities, no obvious focal deficits. PSYCHIATRIC: Normal affect, normal mood. Stable. SKIN: No ulcerations or rashes, good skin turgor, no jaundice. VASCULAR: Good capillary refill, neurovascular bundle appears to be intact. Discharge Information Condition at Discharge: Improved Follow Up: Weeks Disposition/Orders: D/C to Home Scheduled Amlodipine Besylate (Amlodipine Besylate) 10 Mg Tablet, 10 MG PO DAILY for HTN for 30 Days, #30 Ref 5 Prescribed by: ALFA VILLASENOR MD on 09/24/19911 Last Action: Continued on 04/15/20923 by KARENA SUTTON MD Apixaban (Eliquis) 5 Mg Tablet, 5 MG PO BID for atrial fibrillation for 30 Days, #60 Prescribed by: KARENA SUTTON MD on 04/17/201402 Aspirin (Aspirin Ec) 81 Mg Tablet.dr, 81 MG PO DAILYWBKFT for CAD for 30 Days, #30 Ref 5 Prescribed by: ALFA VILLASENOR MD on 09/24/19911 Last Action: Continued on 04/15/20923 by KARENA SUTTON MD Atorvastatin Calcium (Atorvastatin Calcium) 20 Mg Tablet, 20 MG PO QHS for HLD for 90 Days, #90 Ref 3 Prescribed by: ALFA VILLASENOR MD on 09/24/19911 Last Action: Continued on 04/15/20923 by KARENA SUTTON MD Furosemide (Lasix) 40 Mg Tablet, 1 TAB PO DAILY for htn for 30 Days, #30 Ref 0 Prescribed by: KARENA SUTTON MD on 04/17/201402 Insulin Glargine,Hum.rec.anlog (Lantus) 100 Unit/1 Ml Vial, 8 UNIT SQ QHS for DM2 for 30 Days, #1 Ref 2 Prescribed by: ALFA VILLASENOR MD on 09/24/19911 Last Action: Continued on 04/15/20923 by KARENA SUTTON MD Losartan Potassium (Cozaar ) 50 Mg Tablet, 50 MG PO DAILY for HTN/DM2 for 30 Days, #30 Prescribed by: ALFA VILLASENOR MD on 09/24/19911 Last Action: Continued on 04/15/20923 by KARENA SUTTON MD Metoprolol Tartrate (Metoprolol Tartrate) 50 Mg Tablet, 50 MG PO BID for HTN for 30 Days, #60 Ref 2 Prescribed by: ALFA VILLASENOR MD on 09/24/19911 Last Action: Continued on 04/15/20923 by KARENA SUTTON MD Potassium Chloride (Potassium Chloride ) 20 Meq Tablet.er, 20 MEQ PO DAILY for SUPPLEMENT for 30 Days, #30 Prescribed by: KARENA SUTTON MD on 04/17/201402 Justicifation of Admission Dx: Justifications for Admission: Justification of Admission Dx: Yes Chronic Renal Failure: Cardiac Arrhythmias KARENA SUTTON MD Apr 17, 2020 14:34
[2020-04-17 15:00] VITALS: BP 150/89
--- NOTE | 2020-04-17 15:47 | RAD ---
Exam: DUPLEX LOWER EX ARTERIAL RIGHT History: Reason: worsening right foot wound Comparison: Lower extremity arterial ultrasound 10/15/2019. Technique: Grayscale, color, and spectral Doppler ultrasound images of the lower extremity arteries. Findings: Peak systolic velocities (cm/s) and waveforms in the lower extremities: Right: Common femoral artery: 138, triphasic Profunda femoris artery: 81, triphasic Proximal superficial femoral artery: 135, triphasic Mid superficial femoral artery: 119, triphasic Distal superficial femoral artery: 125, triphasic Popliteal artery: 87, triphasic Posterior tibial artery: 108 proximally, 111 distally, triphasic Dorsalis pedis artery: 111, triphasic Anterior tibial artery: 73, triphasic Impression: Triphasic waveforms throughout the right lower extremity without definite hemodynamically significant stenosis. Electronically signed by: Mariola Mcgrath MD (04/17/2020 3:44 PM) [id number]
[2020-04-17 19:22] VITALS: BP 133/76
[2020-04-17] MEDS: LACTOBACILLUS RHAMNOSUS GG 1 CAPSULE. PO SCH (20:30)
[2020-04-17] MEDS: ASCORBIC ACID 500 MG TABLET PO SCH (20:30)
[2020-04-17] MEDS: ATORVASTATIN CALCIUM 20 MG TABLET PO SCH (20:30)
[2020-04-17] MEDS: INSULIN GLARGINE SYRINGE. SQ SCH (20:34)
[2020-04-17 23:27] VITALS: BP 143/74
[2020-04-18 02:53] VITALS: BP 150/83
[2020-04-18 04:44] LABS: BASO % 1 % (0-3); EOS # 0.1 x10^3/uL (0.0-0.7); EOS % 3 % (0-3); HEMOGLOBIN 10.3 g/dL (13.0-17.5); LYMPH # 0.7 x10^3/uL (1.0-4.8); LYMPH % 19 % (24-48); MEAN CORPUSCULAR HEMOGLOBIN 30 pg (25-35); MEAN CORPUSCULAR HGB CONC 33 g/dL (31-37); MEAN CORPUSCULAR VOLUME 90 fL (79-100); MONO # 0.3 x10^3/uL (0.0-1.1); MONO % 7 % (0-9); NEUT # 2.6 x10^3/uL (1.8-7.7); NEUT % 70 % (31-73); PLATELET COUNT 189 x10^3/uL (140-400); RED BLOOD COUNT 3.46 x10^6/uL (4.30-5.70); RED CELL DISTRIBUTION WIDTH 16.2 % (11.5-14.5); WHITE BLOOD COUNT 3.7 x10^3/uL (4.0-11.0)
[2020-04-18 07:20] VITALS: BP 179/95
--- NOTE | 2020-04-18 07:29 | PDOC2 ---
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 He now has a plantar ulcer at the base of his foot which has been debrided by the wound care clinic. Moist bandages are being applied to the wound which is leading to maceration of the skin on the adjacent plantar surface tissue. The patient is morbidly obese and does weight-bear directly on this area also contributing to the trauma. Past Medical History Cardiovascular: HTN, Hyperlipidemia Pulmonary: No pertinent hx CENTRAL NERVOUS SYSTEM: Other GI: No pertinent hx Heme/Onc: No pertinent hx Hepatobiliary: No pertinent hx Psych: No pertinent hx Musculoskeletal: Osteoarthritis Rheumatologic: No pertinent hx Infectious disease: No pertinent hx Renal/: No pertinent hx Endocrine: Diabetes Past Surgical History Past Surgical History: Other (Right toe amputation) Family History Family History: Diabetes Social History Quit ALCOHOL: occassional Drugs: None Lives: Alone Current Problem List Problem List Problems Medical Problems: (1) Edema of both legs Status: Acute (2) Hypertensive urgency Status: Acute (3) Hypokalemia Status: Acute (4) Pleural effusion, right Status: Acute Current Medications Current Medications Current Medications Potassium Chloride (Klor-Con) 80 meq 1X ONCE PO Last administered on 04/14/20at 12:37; Start 04/14/20 at 12:30; Stop 04/14/20 at 12:31; Status DC Hydralazine HCl (Apresoline Inj) 10 mg 1X ONCE IVP Last administered on 04/14/20at 13:56; Start 04/14/20 at 13:45; Stop 04/14/20 at 13:46; Status DC Fentanyl Citrate (Fentanyl 2ml Vial) 100 mcg 1X ONCE IVP Last administered on 04/14/20at 15:10; Start 04/14/20 at 15:00; Stop 04/14/20 at 15:01; Status DC Ondansetron HCl (Zofran) 4 mg PRN Q8HRS PRN IV NAUSEA/VOMITING; Start 04/14/20 at 16:00; Stop 04/15/20 at 15:59; Status DC Morphine Sulfate (Morphine Sulfate) 2 mg PRN Q2HR PRN IV PAIN; Start 04/14/20 at 16:00; Stop 04/15/20 at 09:31; Status DC Labetalol HCl (Normodyne Iv Push) 20 mg 1X ONCE IVP Last administered on 0at 16:30; Start 04/14/20 at 16:15; Stop 04/14/20 at 16:16; Status DC Amlodipine Besylate (Norvasc) 10 mg DAILY PO Last administered on 04/17/20 10:57; Start 04/15/20 at 10:00 Aspirin (Ecotrin) 81 mg DAILYWBKFT PO Last administered on 04/17/20 10:57; Start 04/15/20 at 10:00 Atorvastatin Calcium (Lipitor) 20 mg QHS PO Last administered on 04/17/20 20:30; Start 04/15/20 at 21:00 Insulin Glargine (Lantus Syringe) 8 unit QHS SQ Last administered on 04/17/20 20:34; Start 04/15/20 at 21:00 Losartan Potassium (Cozaar) 50 mg DAILY PO Last administered on 04/17/20 10:57; Start 04/15/20 at 10:00 Metoprolol Tartrate (Lopressor) 50 mg BID PO Last administered on 04/15/20 22:29; Start 04/15/20 at 10:00; Stop 04/16/20 at 02:32; Status DC Insulin Human Lispro (HumaLOG) 0-7 UNITS TIDWMEALS SQ Last administered on 04/15/20at 13:12; Start 04/15/20 at 12:00 Dextrose (Dextrose 50%-Water Syringe) 12.5 gm PRN Q15MIN PRN IV SEE COMMENTS; Start 04/15/20 at 09:30 Cefdinir (Omnicef) 300 mg BID PO Last administered on 04/17/20 20:30; Start 04/15/20 at 16:00; Stop 04/25/20 at 15:59 Potassium Chloride (Klor-Con) 40 meq Q2H PO Last administered on 04/16/20 10:29; Start 04/16/20 at 07:30; Stop 04/16/20 at 09:31; Status DC Apixaban (Eliquis) 5 mg BID PO Last administered on 6/8/20at 20:30; Start 04/16/20 at 21:00 Info (Anti-Coagulation Monitoring By Pharmacy) 1 each PRN DAILY PRN MC SEE COMMENTS; Start 04/16/20 at 15:30 Lactobacillus Rhamnosus (Culturelle) 1 cap BID PO Last administered on 04/17/20at 20:30; Start 04/17/20 at 21:00 Multivitamins (Thera M Plus) 1 tab DAILY PO ; Start 04/18/20 at 09:00 Ascorbic Acid (Vitamin C) 500 mg BID PO Last administered on 04/17/20at 20:30; Start 04/17/20 at 21:00 Active Scripts Active Potassium Chloride (Potassium Chloride) 20 Meq Tablet.er 20 Meq PO DAILY 30 Days Lasix (Furosemide) 40 Mg Tablet 1 Tab PO DAILY 30 Days Eliquis (Apixaban) 5 Mg Tablet 5 Mg PO BID 30 Days Metoprolol Tartrate 50 Mg Tablet 50 Mg PO BID 30 Days Cozaar (Losartan Potassium) 50 Mg Tablet 50 Mg PO DAILY 30 Days Lantus (Insulin Glargine,Hum.rec.anlog) 100 Unit/1 Ml Vial 8 Unit SQ QHS 30 Days Aspirin Ec (Aspirin) 81 Mg Tablet.dr 81 Mg PO DAILYWBKFT 30 Days Amlodipine Besylate 10 Mg Tablet 10 Mg PO DAILY 30 Days Atorvastatin Calcium 20 Mg Tablet 20 Mg PO QHS 90 Days Allergies Allergies: Coded Allergies: No Known Drug Allergies (Unverified , 05/21/17) ROS Skin: Yes Other (Right foot wound) Physical Exam General: Alert, Oriented X3, No acute distress HEENT: Atraumatic, Mucous membr. moist/pink Lungs: Clear to auscultation, Normal air movement Heart: Regular rate, Normal S1, Normal S2 Abdomen: Soft, No tenderness, Other (Morbidly obese) Extremities: No cyanosis (2+ pitting edema bilaterally) Skin: Other (Right foot plantar ulceration with macerated skin along the posterior aspect of mal perforans ulcer, no purulent drainage, no cellulitis, no malodor, no obvious exposure of bony tissue) Neuro: Normal speech, Strength at 5/5 X4 ext, Sensation intact, Cranial nerves 3-12 NL Psych/Mental Status: Mental status NL, Mood NL MUSCULOSKELETAL: Full range of motion without pain, Other (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) Vitals VITALS Vital Signs Date Time Temp Pulse Resp B/P (MAP) Pulse Ox O2 Delivery O2 Flow Rate FiO2 04/18/20 02:53 97.9 57 16 150/83 (105) 97 Room Air 97.9 Labs Labs Laboratory Tests Test 04/16/20 11:02 04/16/20 16:34 04/16/20 20:42 04/17/20 06:20 Glucose (Fingerstick) 128 mg/dL (70-99) 135 mg/dL (70-99) 162 mg/dL (70-99) White Blood Count 4.0 x10^3/uL (4.0-11.0) Red Blood Count 3.53 x10^6/uL (4.30-5.70) Hemoglobin 10.6 g/dL (13.0-17.5) Hematocrit 31.5 % (39.0-53.0) Mean Corpuscular Volume 89 fL (79-100) Mean Corpuscular Hemoglobin 30 pg (25-35) Mean Corpuscular Hemoglobin Concent 34 g/dL (31-37) Red Cell Distribution Width 16.3 % (11.5-14.5) Platelet Count 201 x10^3/uL (140-400) Neutrophils (%) (Auto) 70 % (31-73) Lymphocytes (%) (Auto) 19 % (24-48) Monocytes (%) (Auto) 7 % (0-9) Eosinophils (%) (Auto) 3 % (0-3) Basophils (%) (Auto) 1 % (0-3) Neutrophils # (Auto) 2.8 x10^3/uL (1.8-7.7) Lymphocytes # (Auto) 0.8 x10^3/uL (1.0-4.8) Monocytes # (Auto) 0.3 x10^3/uL (0.0-1.1) Eosinophils # (Auto) 0.1 x10^3/uL (0.0-0.7) Basophils # (Auto) 0.0 x10^3/uL (0.0-0.2) Sodium Level 140 mmol/L (136-145) Potassium Level 3.6 mmol/L (3.5-5.1) Chloride Level 103 mmol/L (98-107) Carbon Dioxide Level 29 mmol/L (21-32) Anion Gap 8 (6-14) Blood Urea Nitrogen 23 mg/dL (8-26) Creatinine 1.9 mg/dL (0.7-1.3) Estimated GFR (Cockcroft-Gault) 36.1 Glucose Level 110 mg/dL (70-99) Calcium Level 8.5 mg/dL (8.5-10.1) Test 04/17/20 07:20 04/17/20 11:37 04/17/20 16:49 04/17/20 19:33 Glucose (Fingerstick) 95 mg/dL (70-99) 128 mg/dL (70-99) 143 mg/dL (70-99) 169 mg/dL (70-99) Test 04/18/20 03:35 White Blood Count 3.7 x10^3/uL (4.0-11.0) Red Blood Count 3.46 x10^6/uL (4.30-5.70) Hemoglobin 10.3 g/dL (13.0-17.5) Hematocrit 31.0 % (39.0-53.0) Mean Corpuscular Volume 90 fL (79-100) Mean Corpuscular Hemoglobin 30 pg (25-35) Mean Corpuscular Hemoglobin Concent 33 g/dL (31-37) Red Cell Distribution Width 16.2 % (11.5-14.5) Platelet Count 189 x10^3/uL (140-400) Neutrophils (%) (Auto) 70 % (31-73) Lymphocytes (%) (Auto) 19 % (24-48) Monocytes (%) (Auto) 7 % (0-9) Eosinophils (%) (Auto) 3 % (0-3) Basophils (%) (Auto) 1 % (0-3) Neutrophils # (Auto) 2.6 x10^3/uL (1.8-7.7) Lymphocytes # (Auto) 0.7 x10^3/uL (1.0-4.8) Monocytes # (Auto) 0.3 x10^3/uL (0.0-1.1) Eosinophils # (Auto) 0.1 x10^3/uL (0.0-0.7) Basophils # (Auto) 0.0 x10^3/uL (0.0-0.2) Laboratory Tests Test 04/17/20 11:37 04/17/20 16:49 04/17/20 19:33 04/18/20 03:35 Glucose (Fingerstick) 128 mg/dL (70-99) 143 mg/dL (70-99) 169 mg/dL (70-99) White Blood Count 3.7 x10^3/uL (4.0-11.0) Red Blood Count 3.46 x10^6/uL (4.30-5.70) Hemoglobin 10.3 g/dL (13.0-17.5) Hematocrit 31.0 % (39.0-53.0) Mean Corpuscular Volume 90 fL (79-100) Mean Corpuscular Hemoglobin 30 pg (25-35) Mean Corpuscular Hemoglobin Concent 33 g/dL (31-37) Red Cell Distribution Width 16.2 % (11.5-14.5) Platelet Count 189 x10^3/uL (140-400) Neutrophils (%) (Auto) 70 % (31-73) Lymphocytes (%) (Auto) 19 % (24-48) Monocytes (%) (Auto) 7 % (0-9) Eosinophils (%) (Auto) 3 % (0-3) Basophils (%) (Auto) 1 % (0-3) Neutrophils # (Auto) 2.6 x10^3/uL (1.8-7.7) Lymphocytes # (Auto) 0.7 x10^3/uL (1.0-4.8) Monocytes # (Auto) 0.3 x10^3/uL (0.0-1.1) Eosinophils # (Auto) 0.1 x10^3/uL (0.0-0.7) Basophils # (Auto) 0.0 x10^3/uL (0.0-0.2) Assessment/Plan Assessment/Plan Right foot mal perforans ulcer--patient had a fourth and fifth toe amputation at by the orthopedic surgery service. He has developed repeat plantar ulceration associated with the plantar surface of the amputation sites. His skin is macerated beyond the level of the ulcer due to moist bandages being applied to the foot. Moist bandages should be discontinued as there are macerating the skin and contributing to these wounds and skin breakdown. I would recommend dry dressings only to the wound with continued follow-up in the wound care clinic and continued home health care for dressing changes. Ideally the changes should be performed daily. This is a simple dry bandage and I believe this can be achieved. No surgical therapy is indicated currently and the patient will follow-up in the vascular surgery clinic on an as-needed basis. All questions were answered to his satisfaction this morning. Kiana Mojica DO, KIANA KONG DO Apr 18, 2020 07:29
[2020-04-18] MEDS: INSULIN LISPRO 300 UNITS/3 ML VIAL. SQ SCH ×3 (08:00→16:13)
[2020-04-18] MEDS: CEFDINIR 300 MG CAPSULE PO SCH (09:18)
[2020-04-18] MEDS: ASCORBIC ACID 500 MG TABLET PO SCH ×2 (09:18→20:27)
[2020-04-18] MEDS: ASPIRIN ENTERIC COATED 81 MG TABLET.DR. PO SCH (09:19)
[2020-04-18] MEDS: MULTIVITAMIN with MINERAL TABLET. PO SCH (09:19)
[2020-04-18] MEDS: LOSARTAN POTASSIUM 50 MG TABLET. PO SCH (09:19)
[2020-04-18] MEDS: LACTOBACILLUS RHAMNOSUS GG 1 CAPSULE. PO SCH ×2 (09:20→20:27)
[2020-04-18] MEDS: amLODIPine BESYLATE 10 MG TABLET PO SCH (09:20)
[2020-04-18] MEDS: APIXABAN 5 MG TABLET. PO SCH ×2 (09:20→20:27)
[2020-04-18] MEDS ORDERED: LABETALOL 20 MG/4 ML DISP.SYRIN. IVP ONE (09:45)
--- NOTE | 2020-04-18 11:09 | NUR ---
SW following for discharge planning. SW reviewed chart and spoke with GEOVANNI Leon. Discharge summary completed by Dr. Morales. This SW requested Dr. Morales complete orders for HH and notified RN as pt to discharge home with HH and resumption of care from the [place]/out-patient [facility] care from [facility]. This SW called [facility] and was informed that they will now not take this patient back per his home environment being dirty and not conducive to wound care. This SW waiting on HH orders and will attempt to find another HH provider. SW to continue following. Addendum: 04/18/20 at 1610 by KHURRAM TOBIAS SW informed by RN that per wound management PT/OT is being consulted per change in pt's weight bearing status. JATINDER met with pt who stated he is agreeable to SNU referral. JATINDER completed Patient Choice in Vendor form. JATINDER phoned and faxed SNU referrals to Latanya with the [facility] through the [place], , (fax) and [facility], , (fax) per pt request. Latanya stated that per [place] policy that if pt is accepted at the [facility] he will have to first quarantine for 14 days at the [place] [facility]. JATINDER informed pt and he is agreeable. SW awaiting acceptance and insurance approval for SNU. Pt accepted for HH with [facility] if his insurance denies SNU benefit and pt is also agreeable to this. JATINDER to continue following.
[2020-04-18 11:12] VITALS: BP 173/94
--- NOTE | 2020-04-18 11:13 | PDOC ---
Infectious Disease Note Subjective: Subjective Patient seen and examined Vital Signs: Vital Signs Vital Signs Date Time Temp Pulse Resp B/P (MAP) Pulse Ox O2 Delivery O2 Flow Rate FiO2 04/18/20 09:20 67 179/95 04/18/20 08:00 Room Air 04/18/20 07:20 97.1 18 99 97.1 Physical Exam: PHYSICAL EXAM GENERAL: No apparent distress. Alert and oriented. HEENT: Normal cephalic atraumatic, external auditory canals are patent EYES: Extraocular muscles are intact, pupils are equally round and reactive to light and accommodation MUSCULOSKELETAL: Well developed, well nourished, good range of motion ENDOCRINE: No thyromegaly was palpated LYMPHATICS: No cervical chain or axillary nodes were noted HEMATOPOIETIC: No bruising NECK: Supple, no JVD, no thyromegaly was noted. LUNGS: Clear to auscultation in all lung santana without rhonchi or wheezing. HEART: RRR, S1, S2 present. Peripheral pulses intact, no obvious murmurs were noted. ABDOMEN: Soft, nontender. Positive bowel sounds no organomegaly, normal bowel sounds. EXTREMITIES: He has 3+ edema of the lower extremities. He also has a right foot wound with clean, dry and intact dressing. NEUROLOGIC: Normal speech, normal tone. A & O x3, moves all extremities, no obvious focal deficits. PSYCHIATRIC: Normal affect, normal mood. Stable. SKIN: No ulcerations or rashes, good skin turgor, no jaundice. VASCULAR: Good capillary refill, neurovascular bundle appears to be intact. Medications: Inpatient Meds: Current Medications Medications (Trade) Dose Ordered Sig/[facility] Start Time Stop Time Status Last Admin Dose Admin Amlodipine Besylate (Norvasc) 10 mg DAILY 04/15/20 10:00 04/18/20 09:20 10 MG Apixaban (Eliquis) 5 mg BID 04/16/20 21:00 04/18/20 09:20 5 MG Ascorbic Acid (Vitamin C) 500 mg BID 04/17/20 21:00 04/18/20 09:18 500 MG Aspirin (Ecotrin) 81 mg DAILYWBKFT 04/15/20 10:00 04/18/20 09:19 81 MG Atorvastatin Calcium (Lipitor) 20 mg QHS 04/15/20 21:00 04/17/20 20:30 20 MG Cefdinir (Omnicef) 300 mg BID 04/15/20 16:00 04/18/20 11:09 DC 04/18/20 09:18 300 MG Ceftriaxone Sodium (Rocephin) 2 gm Q24H 04/18/20 11:00 UNV Dextrose (Dextrose 50%-Water Syringe) 12.5 gm PRN Q15MIN PRN 04/15/20 09:30 Fentanyl Citrate (Fentanyl 2ml Vial) 100 mcg 1X ONCE 04/14/20 15:00 04/14/20 15:01 DC 04/14/20 15:10 100 MCG Hydralazine HCl (Apresoline Inj) 10 mg 1X ONCE 04/14/20 13:45 04/14/20 13:46 DC 04/14/20 13:56 10 MG Info (Anti-Coagulation Monitoring By Pharmacy) 1 each PRN DAILY PRN 04/16/20 15:30 Insulin Glargine (Lantus Syringe) 8 unit QHS 04/15/20 21:00 04/17/20 20:34 8 UNIT Insulin Human Lispro (HumaLOG) 0-7 UNITS TIDWMEALS 04/15/20 12:00 04/15/20 13:12 3 UNITS Labetalol HCl (Normodyne Iv Push) 10 mg 1X ONCE 04/18/20 09:45 04/18/20 09:46 DC Lactobacillus Rhamnosus (Culturelle) 1 cap BID 04/17/20 21:00 04/18/20 09:20 1 CAP Losartan Potassium (Cozaar) 50 mg DAILY 04/15/20 10:00 04/18/20 09:19 50 MG Metoprolol Tartrate (Lopressor) 50 mg BID 04/15/20 10:00 04/16/20 02:32 DC 04/15/20 22:29 50 MG Micafungin Sodium 100 mg/Dextrose 100 ml @ 100 mls/hr Q24H 04/18/20 11:00 UNV Morphine Sulfate (Morphine Sulfate) 2 mg PRN Q2HR PRN 04/14/20 16:00 04/15/20 09:31 DC Multivitamins (Thera M Plus) 1 tab DAILY 04/18/20 09:00 04/18/20 09:19 1 TAB Ondansetron HCl (Zofran) 4 mg PRN Q8HRS PRN 04/14/20 16:00 04/15/20 15:59 DC Potassium Chloride (Klor-Con) 40 meq Q2H 04/16/20 07:30 04/16/20 09:31 DC 04/16/20 10:29 40 MEQ Labs: Lab Laboratory Tests Test 04/17/20 11:37 04/17/20 16:49 04/17/20 19:33 04/18/20 03:35 Glucose (Fingerstick) 128 mg/dL (70-99) 143 mg/dL (70-99) 169 mg/dL (70-99) White Blood Count 3.7 x10^3/uL (4.0-11.0) Red Blood Count 3.46 x10^6/uL (4.30-5.70) Hemoglobin 10.3 g/dL (13.0-17.5) Hematocrit 31.0 % (39.0-53.0) Mean Corpuscular Volume 90 fL (79-100) Mean Corpuscular Hemoglobin 30 pg (25-35) Mean Corpuscular Hemoglobin Concent 33 g/dL (31-37) Red Cell Distribution Width 16.2 % (11.5-14.5) Platelet Count 189 x10^3/uL (140-400) Neutrophils (%) (Auto) 70 % (31-73) Lymphocytes (%) (Auto) 19 % (24-48) Monocytes (%) (Auto) 7 % (0-9) Eosinophils (%) (Auto) 3 % (0-3) Basophils (%) (Auto) 1 % (0-3) Neutrophils # (Auto) 2.6 x10^3/uL (1.8-7.7) Lymphocytes # (Auto) 0.7 x10^3/uL (1.0-4.8) Monocytes # (Auto) 0.3 x10^3/uL (0.0-1.1) Eosinophils # (Auto) 0.1 x10^3/uL (0.0-0.7) Basophils # (Auto) 0.0 x10^3/uL (0.0-0.2) Test 04/18/20 07:36 04/18/20 10:34 Glucose (Fingerstick) 99 mg/dL (70-99) 135 mg/dL (70-99) Objective: Assessment: Group B strep right plantar foot(chronic ulcer) wound infection Maceration on plantar aspect right foot Yeast in toes Diabetes mellitus with neuropathy Right Charcot's foot History of amputation right fourth and fifth toe Peripheral neuropathy Chronic lymphedema CHF ABDI Hypertensive urgency Noncompliance Plan: Plan of Care Change cefdinir to ceftriaxone and Flagyl Micafungin Foot care as directed Optimal edema control Offload Vascular input noted Thank you for this consult [id number] RENNY CARRIZALES MD Apr 18, 2020 11:12
[2020-04-18] MEDS: cefTRIAXone IV Push 2 GM VIAL. IVP SCH (11:34)
[2020-04-18] MEDS: MICAFUNGIN 100 MG in IV DEXTROSE 5% 100ML 100 ML IV SCH (11:41)
--- NOTE | 2020-04-18 12:01 | CONS ---
DATE OF CONSULTATION: 04/18/2020 REFERRING PHYSICIAN: Dr. Neely. REASON FOR CONSULTATION: Right foot wound. HISTORY OF PRESENT ILLNESS: A 60-year-old male who presented to the ER on 04/14/2020 with high blood pressure, low potassium level, increasing bilateral lower extremity swelling. The patient has history of hypertension. His blood pressure was high in the ER, his blood pressure was 208/122. White count of 4.2, hemoglobin of 11.2, platelets of 193. His potassium was 2.8 with creatinine of 1.8 and BNP was 12,698. Troponin of 0.146. For hypertensive urgency, his medication was adjusted. Potassium was replaced. He was found to have atrial fibrillation with rate control and was also found to have acute mixed heart failure. The patient has a right fourth and fifth toe amputation at for mal perforans ulcer. He subsequently developed a plantar ulcer at the base of the foot, which has been debrided by [facility]. Last cultures from 04/06 shows presence of group B strep. The patient is on cefdinir. There is some maceration adjacent to the plantar surface tissue, which was attributed to moist bandages. The patient also has chronic lymphedema, is morbidly obese and does weight bear directly on this area, which has been contributing to the trauma. The patient has been treated with multiple rounds of IV antibiotics since November after discharge from at [facility]. He also was on another antibiotic prior to cefdinir. The patient could not remember or tell me details. I checked with pharmacy, does not look like he was on any home antibiotic treatment. ID consult has been requested for antibiotic management. The patient currently remains afebrile, has no systemic symptoms like fevers, chills, nausea, vomiting, diarrhea, abdominal pain. Lower extremity edema is improving since he has been hospitalized. There is also history of noncompliance. The patient also has diabetes with some component of neuropathy. PAST MEDICAL HISTORY: Diabetes with neuropathy, hypertension, hyperlipidemia, osteoarthritis, chronic lymphedema, status post right fourth and fifth toe amputation with flap surgery done at , plantar ulcer. SOCIAL HISTORY: Quit smoking. Alcohol occasional. No drugs. Lives alone. Retired. CURRENT MEDICATIONS: Cefdinir, multivitamin, ascorbic acid, lactobacillus, apixaban, insulin, Lipitor, losartan, aspirin, amlodipine. PAST SURGICAL HISTORY: Amputation of right fourth and fifth toe with flap surgery at . REVIEW OF SYSTEMS: Negative except for above in HPI. PHYSICAL EXAMINATION: VITAL SIGNS: Temperature 97.1, pulse 67, respiratory rate 18, blood pressure 179/95, oxygen saturation 99% on room air. GENERAL: Alert, oriented x 3 male lying in bed comfortably, in no acute distress. HEENT: Normocephalic, atraumatic. Anicteric. NECK: Supple, no JVD. LUNGS: Clear bilaterally. No wheezing. HEART: S1, S2. No gallops or murmurs. ABDOMEN: Soft, nontender, nondistended. EXTREMITIES: Chronic lymphedema bilaterally with edema, which is decreasing per patient. Right plantar ulceration with surrounding macerated skin more along the posterior aspect. No purulent drainage, no cellulitis, no bone exposure. Healthy granulation tissue. DERMATOLOGIC: Warm, dry. No generalized rash except for above. There is a skin abrasion over the medial aspect of the right lower extremity. NEUROLOGIC: Alert and oriented x 3, grossly nonfocal. PSYCHIATRIC: Cooperative, appropriate mood and affect. MUSCULOSKELETAL: DJD, Charcot foot, right foot. LABORATORY DATA: WBC 3.7, hemoglobin 10.3, hematocrit 31.0, platelets 189. Sodium 140, potassium 3.6, chloride 103, bicarbonate 29, BUN 22, creatinine 1.9, glucose 110. INR 1.2. MICROBIOLOGY: Tissue culture 04/06/2020 from right foot shows group B strep, Corynebacterium striatum. IMAGING: Ultrasound of lower extremity negative for DVT, bilateral lower extremity. Chest x-ray, new finding of moderate right-sided pleural effusion associated compressive atelectasis or infiltrate, right lung base. Ultrasound renal, no hydronephrosis, mild ascites, gallbladder sludge. Duplex lower extremity arterial, triphasic waveform throughout the right lower extremity without definite hemodynamically significant stenosis. IMPRESSION: 1. Chronic right plantar ulcer infection, status post debridement by Wound Clinic, 04/06. 2. April 06 Cultures positive for group B strep and Corynebacterium striatum latter Likely contaminant. 3. Diabetes mellitus. 4. History of right fourth and fifth toe amputation with flap surgery at . Subsequently, the patient has had ulcer on the plantar aspect, which has been treated with wound team and at [facility] with IV antibiotics in the past. 5. Hypertensive urgency. 6. Congestive heart failure. 7. Hypokalemia. 8. Acute kidney injury. 9. Atrial fibrillation. 10. Right pleural effusion. 11. Tinea 12. history of noncompliance. RECOMMENDATIONS: 1. Discontinue cefdinir. 2. Start ceftriaxone. 3. Start micafungin for tinea. 4. Optimal edema control. 5. Local wound care as per Vascular. 6. Continue local wound care as directed. 7. Offload. 8. Optimal diabetes control. Thank you, Dr. Neely, for consulting Infectious Disease to participate in this patient's care. If you have any questions, do not hesitate to contact me. RENNY CARRIZALES MD DR: RUBEN/melanie JOB#: [id number] / [id number] ADRIAN
--- NOTE | 2020-04-18 12:08 | SNU/HH DC ---
DISCHARGE WITH HOME HEALTH DISCHARGE INFORMATION: Discharge Date: Apr 18, 2020 Final Diagnosis: Problems Medical Problems: (1) Edema of both legs Status: Acute (2) Hypertensive urgency Status: Acute (3) Hypokalemia Status: Acute (4) Pleural effusion, right Status: Acute Condition on Discharge: Stable HOME HEALTH: Face to Face: I certify this patient is under my care and that I, or a nurse practitioner or physician's assistant customer service manager working with me, had a face to face encounter that meets the physician face to face encounter requirements with this patient on []. Medical Complications: Other (chronic right lower extremity wound) RN For Eval/Treatment: Yes Pt Meets Homebound Status: Unsteady balance w/ amb,, Limited distance walking POST DISCHARGE ORDERS: Activity Instructions for Disc: Activity as tolerated Bathing Instructions: Shower-keep dressing dry DIET AFTER DISCHARGE: ADA Wound/Incision Care: Change dressing, Other, see below CHECKS AFTER DISCHARGE: Checks after discharge: Check blood press - daily, Check blood sugar, ac/hs CERTIFICATION STATEMENT: Certification Statement: Certification Statement: Based on the above finding, I certify that this patient is confined to the home and needs intermittent alf care, physical therapy and/or speech therapy, or continues to need occupational therapy.~ This patient is under my care, and I have initiated the establishment of the plan of care.~ This patient will be followed by myself or a community physician who will periodically review the plan of care. Home Meds Active Scripts Potassium Chloride (POTASSIUM CHLORIDE ) 20 Meq Tablet.er, 20 MEQ PO DAILY for SUPPLEMENT for 30 Days, #30 TAB.SR Prov:KARENA SUTTON MD 04/17/20 Furosemide (LASIX) 40 Mg Tablet, 1 TAB PO DAILY for htn for 30 Days, #30 TAB 0 Refills Prov:KARENA SUTTON MD 04/17/20 Apixaban (ELIQUIS) 5 Mg Tablet, 5 MG PO BID for atrial fibrillation for 30 Days, #60 TAB Prov:KARENA SUTTON MD 04/17/20 Metoprolol Tartrate (METOPROLOL TARTRATE) 50 Mg Tablet, 50 MG PO BID for HTN for 30 Days, #60 TAB 2 Refills Prov:ALFA VILLASENOR MD 09/24/19 Losartan Potassium (COZAAR ) 50 Mg Tablet, 50 MG PO DAILY for HTN/DM2 for 30 Days, #30 TAB Prov:ALFA VILLASENOR MD 09/24/19 Insulin Glargine,Hum.rec.anlog (LANTUS) 100 Unit/1 Ml Vial, 8 UNIT SQ QHS for DM2 for 30 Days, #1 EACH 2 Refills Prov:ALFA VILLASENOR MD 09/24/19 Aspirin (ASPIRIN EC) 81 Mg Tablet.dr, 81 MG PO DAILYWBKFT for CAD for 30 Days, #30 TAB.SR 5 Refills Prov:ALFA VILLASENOR MD 09/24/19 Amlodipine Besylate (AMLODIPINE BESYLATE) 10 Mg Tablet, 10 MG PO DAILY for HTN for 30 Days, #30 TAB 5 Refills Prov:ALFA VILLASENOR MD 09/24/19 Atorvastatin Calcium (ATORVASTATIN CALCIUM) 20 Mg Tablet, 20 MG PO QHS for HLD for 90 Days, #90 TAB 3 Refills Prov:ALFA VILLASENOR MD 09/24/19 KARENA SUTTON MD Apr 18, 2020 12:08
[2020-04-18] MEDS ORDERED: METO25TA4 PO (13:04)
[2020-04-18] MEDS ORDERED: HYDR-2868 PO (13:08)
--- NOTE | 2020-04-18 13:16 | PDOC ---
CARDIO Progress Notes Date and Time Date of Service 04/18/2020 Time of Evaluation 1230 Subjective Subjective: No Chest Pain, No shortness of breath, No Palpitations Vitals Vitals Vital Signs Date Time Temp Pulse Resp B/P (MAP) Pulse Ox O2 Delivery O2 Flow Rate FiO2 04/18/20 11:26 78 173/94 04/18/20 11:12 97.6 20 96 Room Air 97.6 Weight Weight [ ] Input and Output Intake and Output Intake and Output 04/18/20 07:00 Intake Total 1400 ml Output Total 1200 ml Balance 200 ml Intake Oral 1400 ml Output Urine Total 1200 ml # Bowel Movements 1 Laboratory Labs Laboratory Tests Test 04/17/20 16:49 04/17/20 17:50 04/17/20 19:33 04/18/20 03:35 Glucose (Fingerstick) 143 mg/dL (70-99) 169 mg/dL (70-99) Coronavirus (COVID-19)(PCR) Negative (NEGATIVE) White Blood Count 3.7 x10^3/uL (4.0-11.0) Red Blood Count 3.46 x10^6/uL (4.30-5.70) Hemoglobin 10.3 g/dL (13.0-17.5) Hematocrit 31.0 % (39.0-53.0) Mean Corpuscular Volume 90 fL (79-100) Mean Corpuscular Hemoglobin 30 pg (25-35) Mean Corpuscular Hemoglobin Concent 33 g/dL (31-37) Red Cell Distribution Width 16.2 % (11.5-14.5) Platelet Count 189 x10^3/uL (140-400) Neutrophils (%) (Auto) 70 % (31-73) Lymphocytes (%) (Auto) 19 % (24-48) Monocytes (%) (Auto) 7 % (0-9) Eosinophils (%) (Auto) 3 % (0-3) Basophils (%) (Auto) 1 % (0-3) Neutrophils # (Auto) 2.6 x10^3/uL (1.8-7.7) Lymphocytes # (Auto) 0.7 x10^3/uL (1.0-4.8) Monocytes # (Auto) 0.3 x10^3/uL (0.0-1.1) Eosinophils # (Auto) 0.1 x10^3/uL (0.0-0.7) Basophils # (Auto) 0.0 x10^3/uL (0.0-0.2) C-Reactive Protein, Quantitative 12.3 mg/L (0-3.3) Test 04/18/20 07:36 04/18/20 10:34 Glucose (Fingerstick) 99 mg/dL (70-99) 135 mg/dL (70-99) Physical Exam HEENT: Neck Supple W Full Motion Chest: Symmetric LUNGS: Other (diminished bases) Heart: irregularly irregular (AFIB ) Abdomen: Soft N/T Extremities: No Calf Tenderness Neurology: alert, oriented, follow commands Assessment Assessment 1. HTN urgency: controlled 2. Hypokalemia: resolved 3. Suspect CKD3 4. PAFIB: recent MCOT 10/2019 with 90% AFIB burden but no bradycardia noted 5. Asymptomatic SB; noted lowest in the 30s with no pauses associated with moderate metoprolol dosing. Presently in the 60-70s. 6. Acute on chronic diastolic CHF: compensated 7. ICM: recovered with EF at 50% 8. Right foot wound: Vascualr and wound care clinic following Recommendations 1. Continue with secondary prevention measures. Add hydralazine po. 2. Eliquis for stroke prevention. Will decrease home metoprolol tartrate from 50 to 12.5 mg bid. 3. Will need repeat MCOT again note any further bradycardia and note for any need of PPM. 4. Discussed significantly with pt and does want to start following up with [facility]. Agree with home health. Discussed with RN and emphasized [facility] logy follow up. Justicifation of Admission Dx: Justifications for Admission: Justification of Admission Dx: Yes Chronic Renal Failure: Cardiac Arrhythmias RIKA STOREY MGMT ANALYST Apr 18, 2020 13:16
--- NOTE | 2020-04-18 13:25 | NUR ---
Wound/Ostomy Care Wound Type/Assessment: follow up on R plantar foot diabetic wound Treatment Recommendations/Plan: Wound cleansed and bedside debridement of R plantar diabetic wound by Dr. Neely, pt agreeable and tolerated procedure without complaints. Wound packed with collagen, hydrofera blue and covered with abd and kerlix. Education provided: patient and GEOVANNI Leon Offloading surface/device: Non-weightb Recommended Referrals/Tests: Discharge Recommendations for dressings: Addendum: 04/18/20 at 1337 by YULISA KENNEY RN Offloading surface/device: R foot non-weight bearing and skilled recommended by Dr. Neely, pt informed of the same. Recommended Referrals/Tests: SW for [facility] Discharge Recommendations for dressings: hydrofera blue, abd and kerlix, change every other day.
[2020-04-18] MEDS ORDERED: CEPH-264 PO (13:33)
[2020-04-18] MEDS ORDERED: METR500T PO (13:33)
--- NOTE | 2020-04-18 13:48 | PDOC3 ---
Discharge Summary Visit Information Date of Admission: Apr 14, 2020 Date of Discharge: Apr 18, 2020 Admitting Diagnosis Comment: Severe but emergent hypertension, hypokalemia, noncompliance, chronic renal insufficiency, wounds, anemia and heart failure. Final Diagnosis Problems Medical Problems: (1) Edema of both legs Status: Acute (2) Hypertensive urgency Status: Acute (3) Hypokalemia Status: Acute (4) Pleural effusion, right Status: Acute Hypertensive urgency. Seems to be better controlled and his symptoms have improved with lower numbers reassurance has been provided Chronic kidney disease stage 2 History of atrial fibrillation. Rate controlled. No reported history of atrial fibrillation. started Anticoagulation. Right pleural effusion does not seem to be of clinical significance. History of congestive heart failure systolic dysfunction, last ejection fraction recorded 40% in October 2019 EF now at 50% Hypokalemia. Replaced. right diabetic foot ulcer/ Charcots deformity Brief Hospital Course Allergies Allergies Coded Allergies Type Severity Reaction Last Updated Verified No Known Drug Allergies 05/21/17 No Vital Signs Vital Signs Date Time Temp Pulse Resp B/P (MAP) Pulse Ox O2 Delivery O2 Flow Rate FiO2 04/18/20 11:26 78 173/94 04/18/20 11:12 97.6 20 96 Room Air 97.6 Lab Results Laboratory Tests Test 04/16/20 16:34 04/16/20 20:42 04/17/20 06:20 04/17/20 07:20 Glucose (Fingerstick) 135 mg/dL (70-99) 162 mg/dL (70-99) 95 mg/dL (70-99) White Blood Count 4.0 x10^3/uL (4.0-11.0) Red Blood Count 3.53 x10^6/uL (4.30-5.70) Hemoglobin 10.6 g/dL (13.0-17.5) Hematocrit 31.5 % (39.0-53.0) Mean Corpuscular Volume 89 fL (79-100) Mean Corpuscular Hemoglobin 30 pg (25-35) Mean Corpuscular Hemoglobin Concent 34 g/dL (31-37) Red Cell Distribution Width 16.3 % (11.5-14.5) Platelet Count 201 x10^3/uL (140-400) Neutrophils (%) (Auto) 70 % (31-73) Lymphocytes (%) (Auto) 19 % (24-48) Monocytes (%) (Auto) 7 % (0-9) Eosinophils (%) (Auto) 3 % (0-3) Basophils (%) (Auto) 1 % (0-3) Neutrophils # (Auto) 2.8 x10^3/uL (1.8-7.7) Lymphocytes # (Auto) 0.8 x10^3/uL (1.0-4.8) Monocytes # (Auto) 0.3 x10^3/uL (0.0-1.1) Eosinophils # (Auto) 0.1 x10^3/uL (0.0-0.7) Basophils # (Auto) 0.0 x10^3/uL (0.0-0.2) Sodium Level 140 mmol/L (136-145) Potassium Level 3.6 mmol/L (3.5-5.1) Chloride Level 103 mmol/L (98-107) Carbon Dioxide Level 29 mmol/L (21-32) Anion Gap 8 (6-14) Blood Urea Nitrogen 23 mg/dL (8-26) Creatinine 1.9 mg/dL (0.7-1.3) Estimated GFR (Cockcroft-Gault) 36.1 Glucose Level 110 mg/dL (70-99) Calcium Level 8.5 mg/dL (8.5-10.1) Test 04/17/20 11:37 04/17/20 16:49 04/17/20 17:50 04/17/20 19:33 Glucose (Fingerstick) 128 mg/dL (70-99) 143 mg/dL (70-99) 169 mg/dL (70-99) Coronavirus (COVID-19)(PCR) Negative (NEGATIVE) Test 04/18/20 03:35 04/18/20 07:36 04/18/20 10:34 White Blood Count 3.7 x10^3/uL (4.0-11.0) Red Blood Count 3.46 x10^6/uL (4.30-5.70) Hemoglobin 10.3 g/dL (13.0-17.5) Hematocrit 31.0 % (39.0-53.0) Mean Corpuscular Volume 90 fL (79-100) Mean Corpuscular Hemoglobin 30 pg (25-35) Mean Corpuscular Hemoglobin Concent 33 g/dL (31-37) Red Cell Distribution Width 16.2 % (11.5-14.5) Platelet Count 189 x10^3/uL (140-400) Neutrophils (%) (Auto) 70 % (31-73) Lymphocytes (%) (Auto) 19 % (24-48) Monocytes (%) (Auto) 7 % (0-9) Eosinophils (%) (Auto) 3 % (0-3) Basophils (%) (Auto) 1 % (0-3) Neutrophils # (Auto) 2.6 x10^3/uL (1.8-7.7) Lymphocytes # (Auto) 0.7 x10^3/uL (1.0-4.8) Monocytes # (Auto) 0.3 x10^3/uL (0.0-1.1) Eosinophils # (Auto) 0.1 x10^3/uL (0.0-0.7) Basophils # (Auto) 0.0 x10^3/uL (0.0-0.2) C-Reactive Protein, Quantitative 12.3 mg/L (0-3.3) Glucose (Fingerstick) 99 mg/dL (70-99) 135 mg/dL (70-99) Laboratory Tests Test 04/17/20 16:49 04/17/20 17:50 04/17/20 19:33 04/18/20 03:35 Glucose (Fingerstick) 143 mg/dL (70-99) 169 mg/dL (70-99) Coronavirus (COVID-19)(PCR) Negative (NEGATIVE) White Blood Count 3.7 x10^3/uL (4.0-11.0) Red Blood Count 3.46 x10^6/uL (4.30-5.70) Hemoglobin 10.3 g/dL (13.0-17.5) Hematocrit 31.0 % (39.0-53.0) Mean Corpuscular Volume 90 fL (79-100) Mean Corpuscular Hemoglobin 30 pg (25-35) Mean Corpuscular Hemoglobin Concent 33 g/dL (31-37) Red Cell Distribution Width 16.2 % (11.5-14.5) Platelet Count 189 x10^3/uL (140-400) Neutrophils (%) (Auto) 70 % (31-73) Lymphocytes (%) (Auto) 19 % (24-48) Monocytes (%) (Auto) 7 % (0-9) Eosinophils (%) (Auto) 3 % (0-3) Basophils (%) (Auto) 1 % (0-3) Neutrophils # (Auto) 2.6 x10^3/uL (1.8-7.7) Lymphocytes # (Auto) 0.7 x10^3/uL (1.0-4.8) Monocytes # (Auto) 0.3 x10^3/uL (0.0-1.1) Eosinophils # (Auto) 0.1 x10^3/uL (0.0-0.7) Basophils # (Auto) 0.0 x10^3/uL (0.0-0.2) C-Reactive Protein, Quantitative 12.3 mg/L (0-3.3) Test 04/18/20 07:36 04/18/20 10:34 Glucose (Fingerstick) 99 mg/dL (70-99) 135 mg/dL (70-99) Brief Hospital Course Mr. Duval is a 60 old male hypertensive urgency as documented in the initial history of physical. The patient was seen in consultation by cardiology he was started on who presented with the above-mentioned hypertensive urgency that was treated with hydralazine and labetalol. The patient was seen in consultation by cardiology and given her history of depressed ejection fraction reported at 40% and new echocardiogram was requested. The patient was found to have no significant valvular abnormalities he has an ejection fraction of 50% now and his hypertension has certainly improved. There were some events of bradycardia during his hospital stay that were due to his blue beta-blockade. At the pre sent time he is in no acute distress and asymptomatic. Of note is that he has a chronic wound on his lower extremity that has been taken care of by the wound clinic in the outpatient setting and was started on antibiotics last Friday. He has continued his antibiotics while being inpatient with us and the only change to her medication regimen will be the addition of Lasix potassium supplement and also anticoagulation with apixaban as recommended by cardiology for his atrial fibrillation. Prior to dismissal the patient was evaluated by wound care and requested a surgical consultation with vascular due to worsening of his wound. Re commendations from vascular surgeon were greatly appreciated and seems that it was a function of macerated skin has a consequence of the wet dressings that were being applied to the affected area. He recommended dry dressings and following up with [facility] where he has gotten his vascular evaluation in the past. He was also seen in consultation by infectious disease over the last 24 hours and he was transitioned to oral antibiotics. He had been on antibiotics since last Friday and he received a dose of micafungin and ceftriaxone prior to dismissal. Patient will continue with Keflex and Flagyl for 10 days. Greater than 35 minutes were spent in the discharge process with the patient counseling coronation of care and arrangement for a safe discharge Patient is in good spirits to be discharged home and [facility]. Signs and symptoms of concern when to seek medical attention was discussed with Mr. Duval prior to dismissal and he acknowledged understanding of all the recommendations Assessment Assessment GENERAL: No apparent distress. Alert and oriented. HEENT: Normal cephalic atraumatic, external auditory canals are patent EYES: Extraocular muscles are intact, pupils are equally round and reactive to light and accommodation MUSCULOSKELETAL: Well developed, well nourished, good range of motion ENDOCRINE: No thyromegaly was palpated LYMPHATICS: No cervical chain or axillary nodes were noted HEMATOPOIETIC: No bruising NECK: Supple, no JVD, no thyromegaly was noted. LUNGS: Clear to auscultation in all lung santana without rhonchi or wheezing. HEART: RRR, S1, S2 present. Peripheral pulses intact, no obvious murmurs were noted. ABDOMEN: Soft, nontender. Positive bowel sounds no organomegaly, normal bowel sounds. EXTREMITIES: He has 3+ edema of the lower extremities. He also has a right foot wound with clean, dry and intact dressing. NEUROLOGIC: Normal speech, normal tone. A & O x3, moves all extremities, no obvious focal deficits. PSYCHIATRIC: Normal affect, normal mood. Stable. SKIN: No ulcerations or rashes, good skin turgor, no jaundice. VASCULAR: Good capillary refill, neurovascular bundle appears to be intact. IMAGING REPORT Signed PATIENT: ROSAS DUVAL ACCOUNT: [id number] : 1960 LOCATION: [facility] AGE: 60 SEX: M EXAM STATUS: ADM IN ORD. PHYSICIAN: ANAT WALKER DO REASON: worsening right foot wound PROCEDURE: DUPLEX LOWER EX ARTERIAL RIGHT Exam: DUPLEX LOWER EX ARTERIAL RIGHT History: Reason: worsening right foot wound Comparison: Lower extremity arterial ultrasound 10/15/2019. Technique: Grayscale, color, and spectral Doppler ultrasound images of the lower extremity arteries. Findings: Peak systolic velocities (cm/s) and waveforms in the lower extremities: Right: Common femoral artery: 138, triphasic Profunda femoris artery: 81, triphasic Proximal superficial femoral artery: 135, triphasic Mid superficial femoral artery: 119, triphasic Distal superficial femoral artery: 125, triphasic Popliteal artery: 87, triphasic Posterior tibial artery: 108 proximally, 111 distally, triphasic Dorsalis pedis artery: 111, triphasic Anterior tibial artery: 73, triphasic Impression: Triphasic waveforms throughout the right lower extremity without definite hemodynamically significant stenosis. Electronically signed by: Mariola Mcgrath MD (04/17/2020 3:44 PM) [id number] IMAGING REPORT Signed PATIENT: ROSAS DUVAL ACCOUNT: [id number] : 1960 LOCATION: [address] [place] [address] AGE: 60 SEX: M EXAM STATUS: ADM IN ORD. PHYSICIAN: KARENA SUTTON MD REASON: acute renal failure PROCEDURE: RENAL COMPLETE BILATERAL Complete renal ultrasound COMPARISON: Renal ultrasound September 24, 2019. HISTORY: Acute renal failure. FINDINGS: Right renal length 11.2 cm. Left renal length 11.6 cm. Mild renal cortical thinning. Normal renal parenchymal echogenicity. No renal mass, calculus or hydronephrosis documented. Limited visualization of the lower poles the kidneys due to bowel gas shadowing. Extensive gallbladder sludge is noted. The aorta and IVC are obscured by bowel gas shadowing. Urinary bladder is mildly distended. There is mild abdominal ascites along the dome of the bladder. IMPRESSION: No hydronephrosis. Mild ascites above the dome of the urinary bladder. Gallbladder sludge. Electronically signed by: Huan Powell MD (04/16/2020 9:57 AM) [id number] Discharge Information Condition at Discharge: Improved Follow Up: Weeks Disposition/Orders: D/C to Home w/ HH Scheduled Amlodipine Besylate (Amlodipine Besylate) 10 Mg Tablet, 10 MG PO DAILY for HTN for 30 Days, #30 Ref 5 Prescribed by: ALFA VILLASENOR MD on 09/24/19911 Last Action: Continued on 04/15/20923 by KARENA SUTTON MD Apixaban (Eliquis) 5 Mg Tablet, 5 MG PO BID for atrial fibrillation for 30 Days, #60 Prescribed by: KARENA SUTTON MD on 04/17/20 1403 Aspirin (Aspirin Ec) 81 Mg Tablet.dr, 81 MG PO DAILYWBKFT for CAD for 30 Days, #30 Ref 5 Prescribed by: ALFA VILLASENOR MD on 09/24/19911 Last Action: Continued on 04/15/20923 by KARENA SUTTON MD Atorvastatin Calcium (Atorvastatin Calcium) 20 Mg Tablet, 20 MG PO QHS for HLD for 90 Days, #90 Ref 3 Prescribed by: ALFA VILLASENOR MD on 09/24/19911 Last Action: Continued on 04/15/20923 by KARENA SUTTON MD Cephalexin (Keflex) 500 Mg Capsule, 1 CAP PO TID for diabetic foot for 10 Days, #30 Ref 0 Prescribed by: KARENA SUTTON MD on 04/18/20 1333 Furosemide (Lasix) 40 Mg Tablet, 1 TAB PO DAILY for htn for 30 Days, #30 Ref 0 Prescribed by: KARENA SUTTON MD on 04/17/20 1403 Hydralazine Hcl (Hydralazine Hcl) 25 Mg Tablet, 1 TAB PO BID for HTN for 30 Days, #60 Ref 2 Prescribed by: RIKA STOREY on 04/18/20 1308 Insulin Glargine,Hum.rec.anlog (Lantus) 100 Unit/1 Ml Vial, 8 UNIT SQ QHS for DM2 for 30 Days, #1 Ref 2 Prescribed by: ALFA VILLASENOR MD on 09/24/19911 Last Action: Continued on 04/15/20923 by KARENA SUTTON MD Losartan Potassium (Cozaar ) 50 Mg Tablet, 50 MG PO DAILY for HTN/DM2 for 30 Days, #30 Prescribed by: ALFA VILLASENOR MD on 09/24/19911 Last Action: Continued on 04/15/20923 by KARENA SUTTON MD Metoprolol Tartrate (Metoprolol Tartrate) 25 Mg Tablet, 0.5 TAB PO BID for AFIB for 30 Days, #30 Ref 2 Prescribed by: RIKA STOREY on 04/18/20 1304 Metronidazole (Flagyl) 500 Mg Tablet, 1 TAB PO BID for diabetic foot, #20 Prescribed by: KARENA SUTTON MD on 04/18/20 1333 Potassium Chloride (Potassium Chloride ) 20 Meq Tablet.er, 20 MEQ PO DAILY for SUPPLEMENT for 30 Days, #30 Prescribed by: KARENA SUTTON MD on 04/17/20 1403 Discontinued Medications Metoprolol Tartrate (Metoprolol Tartrate) 50 Mg Tablet, 50 MG PO BID for HTN for 30 Days, #60 Ref 2 Prescribed by: ALFA VILLASENOR MD on 09/24/19911 Last Action: Continued on 04/15/20923 by KARENA SUTTON MD Justicifation of Admission Dx: Justifications for Admission: Justification of Admission Dx: Yes Chronic Renal Failure: Cardiac Arrhythmias KARENA SUTTON MD Apr 18, 2020 13:48
[2020-04-18] MEDS: metroNIDAZOLE 500 MG TABLET PO SCH ×2 (13:58→20:27)
[2020-04-18 15:07] VITALS: BP 146/88
[2020-04-18] MEDS: ANTI-COAG MONITOR BY PHARMACY. MC PRN ×2 (15:35→15:36)
[2020-04-18 19:00] VITALS: BP 134/76
[2020-04-18] MEDS: ATORVASTATIN CALCIUM 20 MG TABLET PO SCH (20:27)
[2020-04-18] MEDS: INSULIN GLARGINE SYRINGE. SQ SCH (20:32)
[2020-04-18 23:00] VITALS: BP 155/84
[2020-04-19 03:00] VITALS: BP 139/87
[2020-04-19 03:42] LABS: BASO % 1 % (0-3); EOS # 0.1 x10^3/uL (0.0-0.7); EOS % 3 % (0-3); HEMATOCRIT 30.1 % (39.0-53.0); HEMOGLOBIN 10.2 g/dL (13.0-17.5); LYMPH # 0.8 x10^3/uL (1.0-4.8); LYMPH % 23 % (24-48); MEAN CORPUSCULAR HEMOGLOBIN 31 pg (25-35); MEAN CORPUSCULAR HGB CONC 34 g/dL (31-37); MEAN CORPUSCULAR VOLUME 90 fL (79-100); MONO # 0.3 x10^3/uL (0.0-1.1); MONO % 8 % (0-9); NEUT # 2.4 x10^3/uL (1.8-7.7); NEUT % 65 % (31-73); PLATELET COUNT 178 x10^3/uL (140-400); RED BLOOD COUNT 3.36 x10^6/uL (4.30-5.70); RED CELL DISTRIBUTION WIDTH 16.1 % (11.5-14.5); WHITE BLOOD COUNT 3.7 x10^3/uL (4.0-11.0)
[2020-04-19 07:00] VITALS: BP 167/96
[2020-04-19] MEDS: INSULIN LISPRO 300 UNITS/3 ML VIAL. SQ SCH ×2 (08:00→12:00)
[2020-04-19] MEDS: LACTOBACILLUS RHAMNOSUS GG 1 CAPSULE. PO SCH (08:29)
[2020-04-19] MEDS: ASPIRIN ENTERIC COATED 81 MG TABLET.DR. PO SCH (08:30)
[2020-04-19] MEDS: ASCORBIC ACID 500 MG TABLET PO SCH (08:30)
[2020-04-19] MEDS: metroNIDAZOLE 500 MG TABLET PO SCH (08:30)
[2020-04-19] MEDS: LOSARTAN POTASSIUM 50 MG TABLET. PO SCH (08:30)
[2020-04-19] MEDS: APIXABAN 5 MG TABLET. PO SCH (08:30)
[2020-04-19] MEDS: MULTIVITAMIN with MINERAL TABLET. PO SCH (08:30)
[2020-04-19] MEDS: amLODIPine BESYLATE 10 MG TABLET PO SCH (08:32)
[2020-04-19] MEDS ORDERED: METOPROLOL TART IMMED RELEASE 25 MG TABLET. PO SCH (09:00)
--- NOTE | 2020-04-19 11:03 | PDOC ---
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 04/19/20 1103: CARDIO Progress Notes Date and Time Date of Service 04/19/2020 Time of Evaluation 1040 Subjective Subjective: No Chest Pain, No shortness of breath, No Palpitations Vitals Vitals Vital Signs Date Time Temp Pulse Resp B/P (MAP) Pulse Ox O2 Delivery O2 Flow Rate FiO2 04/19/20 08:32 75 167/96 04/19/20 07:00 98.0 18 95 Room Air 98.0 Weight Weight [ ] Input and Output Intake and Output Intake and Output 04/19/20 07:00 Intake Total 1200 ml Output Total 800 ml Balance 400 ml Intake Oral 1200 ml Output Urine Total 800 ml # Voids 2 # Bowel Movements 3 Laboratory Labs Laboratory Tests Test 04/18/20 16:10 04/18/20 20:14 04/19/20 02:40 04/19/20 07:45 Glucose (Fingerstick) 138 mg/dL (70-99) 133 mg/dL (70-99) 95 mg/dL (70-99) White Blood Count 3.7 x10^3/uL (4.0-11.0) Red Blood Count 3.36 x10^6/uL (4.30-5.70) Hemoglobin 10.2 g/dL (13.0-17.5) Hematocrit 30.1 % (39.0-53.0) Mean Corpuscular Volume 90 fL (79-100) Mean Corpuscular Hemoglobin 31 pg (25-35) Mean Corpuscular Hemoglobin Concent 34 g/dL (31-37) Red Cell Distribution Width 16.1 % (11.5-14.5) Platelet Count 178 x10^3/uL (140-400) Neutrophils (%) (Auto) 65 % (31-73) Lymphocytes (%) (Auto) 23 % (24-48) Monocytes (%) (Auto) 8 % (0-9) Eosinophils (%) (Auto) 3 % (0-3) Basophils (%) (Auto) 1 % (0-3) Neutrophils # (Auto) 2.4 x10^3/uL (1.8-7.7) Lymphocytes # (Auto) 0.8 x10^3/uL (1.0-4.8) Monocytes # (Auto) 0.3 x10^3/uL (0.0-1.1) Eosinophils # (Auto) 0.1 x10^3/uL (0.0-0.7) Basophils # (Auto) 0.0 x10^3/uL (0.0-0.2) Physical Exam HEENT: Neck Supple W Full Motion Chest: Symmetric LUNGS: Other (diminished bases) Heart: irregularly irregular (AFIB ) Abdomen: Soft N/T Extremities: No Calf Tenderness, Other (leg edema) Neurology: alert, oriented, follow commands Assessment Assessment 1. HTN urgency: mildly labile 2. Hypokalemia: resolved 3. Suspect CKD3 4. PAFIB: recent MCOT 10/2019 with 90% AFIB burden but no bradycardia noted 5. Asymptomatic SB; noted lowest in the 30s with no pauses associated with m oderate metoprolol dosing. Presently in the 60-70s. 6. Acute on chronic diastolic CHF: compensated 7. ICM: recovered with EF at 50% 8. Right foot wound: Vascualr and wound care clinic following Recommendations 1. Continue with secondary prevention measures. Start hydralazine po. 2. Eliquis for stroke prevention. Metoprolol tartrate low dose 12.5 mg bid. 3. Will need repeat MCOT again note any further bradycardia and note for any need of PPM. 4. Discussed significantly with pt and again today and does want to start following up with [facility]. Agree with home health. Discussed with RN and emphasized [facility] follow up. Justicifation of Admission Dx: Justifications for Admission: Justification of Admission Dx: Yes Chronic Renal Failure: Cardiac Arrhythmias NACHO DENIS MD 04/19/20 1652: CARDIO Progress Notes Assessment Assessment Patient seen and evaluated. Agree with our nurse practitioners assessment and plan. HTN urgency: mildly labile Hypokalemia: resolved CKD3 PAFIB: recent MCOT 10/2019 with 90% AFIB burden but no bradycardia noted. Follow-up as noted above. Asymptomatic SB; noted lowest in the 30s with no pauses associated with moderate metoprolol dosing. Presently in the 60-70s. Acute on chronic diastolic CHF: compensated ICM: recovered with EF at 50% Right foot wound: Vascualr and wound care clinic following RIKA STOREY APRN Apr 19, 2020 11:03 NACHO DENIS MD Apr 19, 2020 16:52
[2020-04-19 11:15] VITALS: BP 149/85
[2020-04-19] MEDS ORDERED: hydrALAZINE 25 MG TABLET PO SCH (11:15)
--- NOTE | 2020-04-19 11:18 | PDOC ---
Infectious Disease Note Subjective: Subjective Pt without complaints no f/n/v/d/abdo leg swelling improving no pain Vital Signs: Vital Signs Vital Signs Date Time Temp Pulse Resp B/P (MAP) Pulse Ox O2 Delivery O2 Flow Rate FiO2 04/19/20 08:32 75 167/96 04/19/20 07:00 98.0 18 95 Room Air 98.0 Physical Exam: PHYSICAL EXAM GENERAL: Alert, oriented x 3 male lying in bed comfortably, in no acute distress. HEENT: Normocephalic, atraumatic. Anicteric. NECK: Supple, no JVD. LUNGS: Clear bilaterally. No wheezing. HEART: S1, S2. No gallops or murmurs. ABDOMEN: Soft, nontender, nondistended. EXTREMITIES: Chronic lymphedema bilaterally with edema, which is decreasing per patient. Right plantar ulceration with surrounding macerated skin more along the posterior aspect. No purulent drainage, no cellulitis, no bone exposure. Healthy granulation tissue. DERMATOLOGIC: Warm, dry. No generalized rash except for above. There is a skin abrasion over the medial aspect of the right lower extremity. NEUROLOGIC: Alert and oriented x 3, grossly nonfocal. PSYCHIATRIC: Cooperative, appropriate mood and affect. MUSCULOSKELETAL: DJD, Charcot foot, right foot. Medications: Inpatient Meds: Current Medications Medications (Trade) Dose Ordered Sig/Adiel Start Time Stop Time Status Last Admin Dose Admin Amlodipine Besylate (Norvasc) 10 mg DAILY 04/15/20 10:00 04/19/20 08:32 10 MG Apixaban (Eliquis) 5 mg BID 04/16/20 21:00 04/19/20 08:30 5 MG Ascorbic Acid (Vitamin C) 500 mg BID 04/17/20 21:00 04/19/20 08:30 500 MG Aspirin (Ecotrin) 81 mg DAILYWBKFT 04/15/20 10:00 04/19/20 08:30 81 MG Atorvastatin Calcium (Lipitor) 20 mg QHS 04/15/20 21:00 04/18/20 20:27 20 MG Cefdinir (Omnicef) 300 mg BID 04/15/20 16:00 04/18/20 11:09 DC 04/18/20 09:18 300 MG Ceftriaxone Sodium (Rocephin) 2 gm Q24H 04/18/20 11:30 04/18/20 11:34 2 GM Dextrose (Dextrose 50%-Water Syringe) 12.5 gm PRN Q15MIN PRN 04/15/20 09:30 Fentanyl Citrate (Fentanyl 2ml Vial) 100 mcg 1X ONCE 04/14/20 15:00 04/14/20 15:01 DC 04/14/20 15:10 100 MCG Hydralazine HCl (Apresoline Inj) 10 mg 1X ONCE 04/14/20 13:45 04/14/20 13:46 DC 04/14/20 13:56 10 MG Hydralazine HCl (Apresoline) 25 mg BID 04/19/20 11:15 Info (Anti-Coagulation Monitoring By Pharmacy) 1 each PRN DAILY PRN 04/16/20 15:30 04/18/20 15:36 1 EACH Insulin Glargine (Lantus Syringe) 8 unit QHS 04/15/20 21:00 04/18/20 20:32 8 UNIT Insulin Human Lispro (HumaLOG) 0-7 UNITS TIDWMEALS 04/15/20 12:00 04/15/20 13:12 3 UNITS Labetalol HCl (Normodyne Iv Push) 10 mg 1X ONCE 04/18/20 09:45 04/18/20 09:46 DC 04/18/20 11:26 10 MG Lactobacillus Rhamnosus (Culturelle) 1 cap BID 04/17/20 21:00 04/19/20 08:29 1 CAP Losartan Potassium (Cozaar) 50 mg DAILY 04/20/20 09:00 Metoprolol Tartrate (Lopressor) 12.5 mg BID 04/19/20 09:00 04/19/20 08:29 12.5 MG Metronidazole (Flagyl) 500 mg Q12HR 04/18/20 12:00 04/19/20 08:30 500 MG Micafungin Sodium 100 mg/Dextrose 100 ml @ 100 mls/hr Q24H 04/18/20 12:00 04/18/20 11:41 100 MLS/HR Morphine Sulfate (Morphine Sulfate) 2 mg PRN Q2HR PRN 04/14/20 16:00 04/15/20 09:31 DC Multivitamins (Thera M Plus) 1 tab DAILY 04/18/20 09:00 04/19/20 08:30 1 TAB Ondansetron HCl (Zofran) 4 mg PRN Q8HRS PRN 04/14/20 16:00 04/15/20 15:59 DC Potassium Chloride (Klor-Con) 40 meq Q2H 04/16/20 07:30 04/16/20 09:31 DC 04/16/20 10:29 40 MEQ Labs: Lab Laboratory Tests Test 04/18/20 16:10 04/18/20 20:14 04/19/20 02:40 04/19/20 07:45 Glucose (Fingerstick) 138 mg/dL (70-99) 133 mg/dL (70-99) 95 mg/dL (70-99) White Blood Count 3.7 x10^3/uL (4.0-11.0) Red Blood Count 3.36 x10^6/uL (4.30-5.70) Hemoglobin 10.2 g/dL (13.0-17.5) Hematocrit 30.1 % (39.0-53.0) Mean Corpuscular Volume 90 fL (79-100) Mean Corpuscular Hemoglobin 31 pg (25-35) Mean Corpuscular Hemoglobin Concent 34 g/dL (31-37) Red Cell Distribution Width 16.1 % (11.5-14.5) Platelet Count 178 x10^3/uL (140-400) Neutrophils (%) (Auto) 65 % (31-73) Lymphocytes (%) (Auto) 23 % (24-48) Monocytes (%) (Auto) 8 % (0-9) Eosinophils (%) (Auto) 3 % (0-3) Basophils (%) (Auto) 1 % (0-3) Neutrophils # (Auto) 2.4 x10^3/uL (1.8-7.7) Lymphocytes # (Auto) 0.8 x10^3/uL (1.0-4.8) Monocytes # (Auto) 0.3 x10^3/uL (0.0-1.1) Eosinophils # (Auto) 0.1 x10^3/uL (0.0-0.7) Basophils # (Auto) 0.0 x10^3/uL (0.0-0.2) Objective: Assessment: LABORATORY DATA: WBC 3.7, hemoglobin 10.3, hematocrit 31.0, platelets 189. Sodium 140, potassium 3.6, chloride 103, bicarbonate 29, BUN 22, creatinine 1.9, glucose 110. INR 1.2. MICROBIOLOGY: Tissue culture 04/06/2020 from right foot shows group B strep, Corynebacterium striatum. IMAGING: Ultrasound of lower extremity negative for DVT, bilateral lower extremity. Chest x-ray, new finding of moderate right-sided pleural effusion associated compressive atelectasis or infiltrate, right lung base. Ultrasound renal, no hydronephrosis, mild ascites, gallbladder sludge. Duplex lower extremity arterial, triphasic waveform throughout the right lower extremity without definite hemodynamically significant stenosis. 1. Chronic right plantar ulcer infection, status post debridement by Wound Clinic, 04/06. 2. Cultures positive for group B strep and Corynebacterium striatum latter could be contaminant. 3. Diabetes mellitus. 4. History of right fourth and fifth toe amputation with flap surgery at . Subsequently, the patient has had ulcer on the plantar aspect, which has been treated with wound team and at [facility] with IV antibiotics in the past. 5. Hypertensive urgency. 6. Congestive heart failure. 7. Hypokalemia. 8. Acute kidney injury. 9. Atrial fibrillation. 10. Right pleural effusion. 11. History of noncompliance. RECOMMENDATIONS: 1. Discontinue cefdinir. 2. Start ceftriaxone. 3. Start micafungin for tinea. 4. Optimal edema control. 5. Local wound care as per Vascular. 6. Continue local wound care as directed. 7. Offload. 8. Optimal diabetes control. Plan: Plan of Care Pt is ready for dc today to SNF dose ceftriaxone and Micafungin today start keflex 500 mg po qid and flagyl 500 mg po bid for 10 days Foot care as directed by wound team Optimal edema control Offload Vascular input noted F/U ID clinic if needed in 2 weeks D/W RENNY Zendejas MD Apr 19, 2020 11:18
[2020-04-19] MEDS ORDERED: CEPH-264 PO (11:28)
[2020-04-19] MEDS: cefTRIAXone IV Push 2 GM VIAL. IVP SCH (11:30)
[2020-04-19] MEDS: MICAFUNGIN 100 MG in IV DEXTROSE 5% 100ML 100 ML IV SCH (12:00)
--- NOTE | 2020-04-19 12:00 | NUR ---
JATINDER following for discharge planning. Pt accepted at [facility], , (fax) SNU. JATINDER called out-patient wound care and arranged for a follow up appointment on 04/24/2020 at 8:30am. SW notified [facility] of this appointment. JATINDER notified RN and Dr. Morales of 3:30pm discharge via wc transport from [facility]. Pt on room air. SW awaiting final discharge orders. Pt agreeable to plan and appreciative of care. SW to fax final discharge orders. Addendum: 04/19/20 at 1512 by KHURRAM TOBIAS Final discharge orders received. JATINDER phoned and faxed orders to [facility], , (fax). Spoke with admissions to confirm orders were received. RN calling report. No additional SW needs at this time.
[2020-04-19] MEDS ORDERED: CEPHALEXIN 250 MG CAPSULE. PO ONE (12:30)
--- NOTE | 2020-04-19 13:37 | SNU/HH DC ---
DISCHARGE ORDERS DISCHARGE INFORMATION: DISCHARGE DATE: Apr 18, 2020 FINAL DIAGNOSIS Problems Medical Problems: (1) Edema of both legs Status: Acute (2) Hypertensive urgency Status: Acute (3) Hypokalemia Status: Acute (4) Pleural effusion, right Status: Acute CONDITION ON DISCHARGE: Stable CODE STATUS: Code Status: Full [facility]CI: SNF STAY <30 DAYS: Yes POST DISCHARGE ORDERS: ACTIVITY ORDERS: Activity as tolerated WEIGHT BEARING STATUS: Non weight bearing BATHING ORDERS: Shower-keep dressing dry DIET AFTER DISCHARGE: ADA WOUND/INCISION CARE: Change dressing, Other, see below CHECKS AFTER DISCHARGE: CHECKS AFTER DISCHARGE: Check blood press - daily, Check blood sugar, ac/hs DISCHARGE MEDICATIONS: Home Meds Active Scripts Cephalexin (KEFLEX) 500 Mg Capsule, 1 CAP PO QID for diabetic foot for 10 Days, #40 CAP 0 Refills Prov:RENNY CARRIZALES MD 04/19/20 Metronidazole (FLAGYL) 500 Mg Tablet, 1 TAB PO BID for diabetic foot, #20 TAB Prov:KARENA SUTTON MD 04/18/20 Hydralazine Hcl (HYDRALAZINE HCL) 25 Mg Tablet, 1 TAB PO BID for HTN for 30 Days, #60 TAB 2 Refills Prov:RIKA STOREY SKIVER HEEL TAP 04/18/20 Metoprolol Tartrate (METOPROLOL TARTRATE) 25 Mg Tablet, 0.5 TAB PO BID for AFIB for 30 Days, #30 TAB 2 Refills Prov:RIKA STOREY SKIVER HEEL TAP 04/18/20 Potassium Chloride (POTASSIUM CHLORIDE ) 20 Meq Tablet.er, 20 MEQ PO DAILY for SUPPLEMENT for 30 Days, #30 TAB.SR Prov:KARENA SUTTON MD 04/17/20 Furosemide (LASIX) 40 Mg Tablet, 1 TAB PO DAILY for htn for 30 Days, #30 TAB 0 Refills Prov:KARENA SUTTON MD 04/17/20 Apixaban (ELIQUIS) 5 Mg Tablet, 5 MG PO BID for atrial fibrillation for 30 Days, #60 TAB Prov:KARENA SUTTON MD 04/17/20 Losartan Potassium (COZAAR ) 50 Mg Tablet, 50 MG PO DAILY for HTN/DM2 for 30 Days, #30 TAB Prov:ALFA VILLASENOR MD 09/24/19 Insulin Glargine,Hum.rec.anlog (LANTUS) 100 Unit/1 Ml Vial, 8 UNIT SQ QHS for DM2 for 30 Days, #1 EACH 2 Refills Prov:ALFA VILLASENOR MD 09/24/19 Aspirin (ASPIRIN EC) 81 Mg Tablet.dr, 81 MG PO DAILYWBKFT for CAD for 30 Days, #30 TAB.SR 5 Refills Prov:ALFA VILLASENOR MD 09/24/19 Amlodipine Besylate (AMLODIPINE BESYLATE) 10 Mg Tablet, 10 MG PO DAILY for HTN for 30 Days, #30 TAB 5 Refills Prov:AFLA VILLASENOR MD 09/24/19 Atorvastatin Calcium (ATORVASTATIN CALCIUM) 20 Mg Tablet, 20 MG PO QHS for HLD for 90 Days, #90 TAB 3 Refills Prov:ALFA VILLASENOR MD 09/24/19 Discontinued Scripts Metoprolol Tartrate (METOPROLOL TARTRATE) 50 Mg Tablet, 50 MG PO BID for HTN for 30 Days, #60 TAB 2 Refills Prov:ALFA VILLASENOR MD 09/24/19 KARENA SUTTON MD Apr 19, 2020 13:36
--- NOTE | 2020-04-19 14:26 | PDOC3 ---
Discharge Summary Visit Information Date of Admission: Apr 14, 2020 Date of Discharge: Apr 19, 2020 Admitting Diagnosis Comment: Severe but emergent hypertension, hypokalemia, noncompliance, chronic renal insufficiency, wounds, anemia and heart failure. Final Diagnosis Problems Medical Problems: (1) Edema of both legs Status: Acute (2) Hypertensive urgency Status: Acute (3) Hypokalemia Status: Acute (4) Pleural effusion, right Status: Acute Hypertensive urgency. Seems to be better controlled and his symptoms have improved with lower numbers reassurance has been provided Chronic kidney disease stage 2 History of atrial fibrillation. Rate controlled. No reported history of atrial fibrillation. started Anticoagulation. Right pleural effusion does not seem to be of clinical significance. History of congestive heart failure systolic dysfunction, last ejection fraction recorded 40% in October 2019 EF now at 50% Hypokalemia. Replaced. right diabetic foot ulcer/ Charcots deformity Brief Hospital Course Allergies Allergies Coded Allergies Type Severity Reaction Last Updated Verified No Known Drug Allergies 05/21/17 No Vital Signs Vital Signs Date Time Temp Pulse Resp B/P (MAP) Pulse Ox O2 Delivery O2 Flow Rate FiO2 04/19/20 11:52 75 167/96 04/19/20 11:15 97.8 12 98 Room Air 97.8 Lab Results Laboratory Tests Test 04/17/20 16:49 04/17/20 17:50 04/17/20 19:33 04/18/20 03:35 Glucose (Fingerstick) 143 mg/dL (70-99) 169 mg/dL (70-99) Coronavirus (COVID-19)(PCR) Negative (NEGATIVE) White Blood Count 3.7 x10^3/uL (4.0-11.0) Red Blood Count 3.46 x10^6/uL (4.30-5.70) Hemoglobin 10.3 g/dL (13.0-17.5) Hematocrit 31.0 % (39.0-53.0) Mean Corpuscular Volume 90 fL (79-100) Mean Corpuscular Hemoglobin 30 pg (25-35) Mean Corpuscular Hemoglobin Concent 33 g/dL (31-37) Red Cell Distribution Width 16.2 % (11.5-14.5) Platelet Count 189 x10^3/uL (140-400) Neutrophils (%) (Auto) 70 % (31-73) Lymphocytes (%) (Auto) 19 % (24-48) Monocytes (%) (Auto) 7 % (0-9) Eosinophils (%) (Auto) 3 % (0-3) Basophils (%) (Auto) 1 % (0-3) Neutrophils # (Auto) 2.6 x10^3/uL (1.8-7.7) Lymphocytes # (Auto) 0.7 x10^3/uL (1.0-4.8) Monocytes # (Auto) 0.3 x10^3/uL (0.0-1.1) Eosinophils # (Auto) 0.1 x10^3/uL (0.0-0.7) Basophils # (Auto) 0.0 x10^3/uL (0.0-0.2) C-Reactive Protein, Quantitative 12.3 mg/L (0-3.3) Test 04/18/20 07:36 04/18/20 10:34 04/18/20 16:10 04/18/20 20:14 Glucose (Fingerstick) 99 mg/dL (70-99) 135 mg/dL (70-99) 138 mg/dL (70-99) 133 mg/dL (70-99) Test 04/19/20 02:40 04/19/20 07:45 White Blood Count 3.7 x10^3/uL (4.0-11.0) Red Blood Count 3.36 x10^6/uL (4.30-5.70) Hemoglobin 10.2 g/dL (13.0-17.5) Hematocrit 30.1 % (39.0-53.0) Mean Corpuscular Volume 90 fL (79-100) Mean Corpuscular Hemoglobin 31 pg (25-35) Mean Corpuscular Hemoglobin Concent 34 g/dL (31-37) Red Cell Distribution Width 16.1 % (11.5-14.5) Platelet Count 178 x10^3/uL (140-400) Neutrophils (%) (Auto) 65 % (31-73) Lymphocytes (%) (Auto) 23 % (24-48) Monocytes (%) (Auto) 8 % (0-9) Eosinophils (%) (Auto) 3 % (0-3) Basophils (%) (Auto) 1 % (0-3) Neutrophils # (Auto) 2.4 x10^3/uL (1.8-7.7) Lymphocytes # (Auto) 0.8 x10^3/uL (1.0-4.8) Monocytes # (Auto) 0.3 x10^3/uL (0.0-1.1) Eosinophils # (Auto) 0.1 x10^3/uL (0.0-0.7) Basophils # (Auto) 0.0 x10^3/uL (0.0-0.2) Glucose (Fingerstick) 95 mg/dL (70-99) Laboratory Tests Test 04/18/20 16:10 04/18/20 20:14 04/19/20 02:40 04/19/20 07:45 Glucose (Fingerstick) 138 mg/dL (70-99) 133 mg/dL (70-99) 95 mg/dL (70-99) White Blood Count 3.7 x10^3/uL (4.0-11.0) Red Blood Count 3.36 x10^6/uL (4.30-5.70) Hemoglobin 10.2 g/dL (13.0-17.5) Hematocrit 30.1 % (39.0-53.0) Mean Corpuscular Volume 90 fL (79-100) Mean Corpuscular Hemoglobin 31 pg (25-35) Mean Corpuscular Hemoglobin Concent 34 g/dL (31-37) Red Cell Distribution Width 16.1 % (11.5-14.5) Platelet Count 178 x10^3/uL (140-400) Neutrophils (%) (Auto) 65 % (31-73) Lymphocytes (%) (Auto) 23 % (24-48) Monocytes (%) (Auto) 8 % (0-9) Eosinophils (%) (Auto) 3 % (0-3) Basophils (%) (Auto) 1 % (0-3) Neutrophils # (Auto) 2.4 x10^3/uL (1.8-7.7) Lymphocytes # (Auto) 0.8 x10^3/uL (1.0-4.8) Monocytes # (Auto) 0.3 x10^3/uL (0.0-1.1) Eosinophils # (Auto) 0.1 x10^3/uL (0.0-0.7) Basophils # (Auto) 0.0 x10^3/uL (0.0-0.2) Brief Hospital Course Mr. Duval is a 60 old male hypertensive urgency as documented in the initial history of physical. The patient was seen in consultation by cardiology he was started on who presented with the above-mentioned hypertensive urgency that was treated with hydralazine and labetalol. The patient was seen in consultation by cardiology and given her history of depressed ejection fraction reported at 40% and new echocardiogram was requested. The patient was found to have no significant valvular abnormalities he has an ejection fraction of 50% now and his hypertension has certainly improved. There were some events of bradycardia during his hospital stay that were due to his blue beta-blockade. At the present time he is in no acute distress and asymptomatic. Of note is that he has a chronic wound on his lower extremity that has been taken care of by the wound clinic in the outpatient setting and was started on antibiotics last Friday. He has continued his antibiotics while being inpatient with us and the only change to her medication regimen will be the addition of Lasix potassium supplement and also anticoagulation with apixaban as recommended by cardiology for his atrial fibrillation. Prior to dismissal the patient was evaluated by wound care and requested a surgical consultation with vascular due to worsening of his wound. Recommen dations from vascular surgeon were greatly appreciated and seems that it was a function of macerated skin has a consequence of the wet dressings that were being applied to the affected area. He recommended dry dressings and following up with where he has gotten his vascular evaluation in the past. He was also seen in consultation by infectious disease over the last 24 hours and he was transitioned to oral antibiotics. He had been on antibiotics since last Friday and he received a dose of micafungin and ceftriaxone prior to dismissal. Patient will continue with Keflex and Flagyl for 10 days. Before being discharged recommendations were to stay non weight bearing reason why discharge was held in order to arrange placement. Greater than 35 minutes were spent in the discharge process with the patient counseling coronation of care and arrangement for a safe discharge Patient is in good spirits to be discharged now he is going to a SNF and [facility]. Signs and symptoms of concern and when to seek medical attention was discussed with Mr. Duval prior to dismissal and he acknowledged understanding of all the recommendations Assessment Assessment GENERAL: No apparent distress. Alert and oriented. HEENT: Normal cephalic atraumatic, external auditory canals are patent EYES: Extraocular muscles are intact, pupils are equally round and reactive to light and accommodation MUSCULOSKELETAL: Well developed, well nourished, good range of motion ENDOCRINE: No thyromegaly was palpated LYMPHATICS: No cervical chain or axillary nodes were noted HEMATOPOIETIC: No bruising NECK: Supple, no JVD, no thyromegaly was noted. LUNGS: Clear to auscultation in all lung santana without rhonchi or wheezing. HEART: RRR, S1, S2 present. Peripheral pulses intact, no obvious murmurs were noted. ABDOMEN: Soft, nontender. Positive bowel sounds no organomegaly, normal bowel sounds. EXTREMITIES: He has 3+ edema of the lower extremities. He also has a right foot wound with clean, dry and intact dressing. NEUROLOGIC: Normal speech, normal tone. A & O x3, moves all extremities, no obvious focal deficits. PSYCHIATRIC: Normal affect, normal mood. Stable. SKIN: No ulcerations or rashes, good skin turgor, no jaundice. VASCULAR: Good capillary refill, neurovascular bundle appears to be intact. IMAGING REPORT Signed PATIENT: ROSAS DUVAL ACCOUNT: [id number] : 1960 LOCATION: [facility] AGE: 60 SEX: M EXAM STATUS: ADM IN ORD. PHYSICIAN: ANAT WALKER DO REASON: worsening right foot wound PROCEDURE: DUPLEX LOWER EX ARTERIAL RIGHT Exam: DUPLEX LOWER EX ARTERIAL RIGHT History: Reason: worsening right foot wound Comparison: Lower extremity arterial ultrasound 10/15/2019. Technique: Grayscale, color, and spectral Doppler ultrasound images of the lower extremity arteries. Findings: Peak systolic velocities (cm/s) and waveforms in the lower extremities: Right: Common femoral artery: 138, triphasic Profunda femoris artery: 81, triphasic Proximal superficial femoral artery: 135, triphasic Mid superficial femoral artery: 119, triphasic Distal superficial femoral artery: 125, triphasic Popliteal artery: 87, triphasic Posterior tibial artery: 108 proximally, 111 distally, triphasic Dorsalis pedis artery: 111, triphasic Anterior tibial artery: 73, triphasic Impression: Triphasic waveforms throughout the right lower extremity without definite hemodynamically significant stenosis. Electronically signed by: Mariola Mcgrath MD (04/17/2020 3:44 PM) [id number] IMAGING REPORT Signed PATIENT: ROSAS DUVAL ACCOUNT: [id number] : 1960 LOCATION: [address] [place] [address] AGE: 60 SEX: M EXAM STATUS: ADM IN ORD. PHYSICIAN: KARENA SUTTON MD REASON: acute renal failure PROCEDURE: RENAL COMPLETE BILATERAL Complete renal ultrasound COMPARISON: Renal ultrasound September 24, 2019. HISTORY: Acute renal failure. FINDINGS: Right renal length 11.2 cm. Left renal length 11.6 cm. Mild renal cortical thinning. Normal renal parenchymal echogenicity. No renal mass, calculus or hydronephrosis documented. Limited visualization of the lower poles the kidneys due to bowel gas shadowing. Extensive gallbladder sludge is noted. The aorta and IVC are obscured by bowel gas shadowing. Urinary bladder is mildly distended. There is mild abdominal ascites along the dome of the bladder. IMPRESSION: No hydronephrosis. Mild ascites above the dome of the urinary bladder. Gallbladder sludge. Electronically signed by: Huan Powell MD (04/16/2020 9:57 AM) [id number] Discharge Information Condition at Discharge: Improved Follow Up: Weeks Disposition/Orders: D/C to Another Facility Scheduled Amlodipine Besylate (Amlodipine Besylate) 10 Mg Tablet, 10 MG PO DAILY for HTN for 30 Days, #30 Ref 5 Prescribed by: ALFA VILLASENOR MD on 09/24/19911 Last Action: Continued on 04/15/20923 by KARENA SUTTON MD Apixaban (Eliquis) 5 Mg Tablet, 5 MG PO BID for atrial fibrillation for 30 Days, #60 Prescribed by: KARENA SUTTON MD on 04/17/20 1403 Aspirin (Aspirin Ec) 81 Mg Tablet.dr, 81 MG PO DAILYWBKFT for CAD for 30 Days, #30 Ref 5 Prescribed by: ALFA VILLASENOR MD on 09/24/19911 Last Action: Continued on 04/15/20923 by KARENA SUTTON MD Atorvastatin Calcium (Atorvastatin Calcium) 20 Mg Tablet, 20 MG PO QHS for HLD for 90 Days, #90 Ref 3 Prescribed by: ALFA VILLASENOR MD on 09/24/19911 Last Action: Continued on 04/15/20923 by KARENA SUTTON MD Cephalexin (Keflex) 500 Mg Capsule, 1 CAP PO QID for diabetic foot for 10 Days, #40 Ref 0 Prescribed by: RENNY CARRIZALES MD on 04/19/20 1128 Furosemide (Lasix) 40 Mg Tablet, 1 TAB PO DAILY for htn for 30 Days, #30 Ref 0 Prescribed by: KARENA SUTTON MD on 04/17/20 1403 Hydralazine Hcl (Hydralazine Hcl) 25 Mg Tablet, 1 TAB PO BID for HTN for 30 Days, #60 Ref 2 Prescribed by: RIKA STOREY on 04/18/20 1308 Insulin Glargine,Hum.rec.anlog (Lantus) 100 Unit/1 Ml Vial, 8 UNIT SQ QHS for DM2 for 30 Days, #1 Ref 2 Prescribed by: ALFA VILLASENOR MD on 09/24/19911 Last Action: Continued on 04/15/20923 by KARENA SUTTON MD Losartan Potassium (Cozaar ) 50 Mg Tablet, 50 MG PO DAILY for HTN/DM2 for 30 Days, #30 Prescribed by: ALFA VILLASENOR MD on 09/24/19911 Last Action: Continued on 04/15/20923 by KARENA SUTTON MD Metoprolol Tartrate (Metoprolol Tartrate) 25 Mg Tablet, 0.5 TAB PO BID for AFIB for 30 Days, #30 Ref 2 Prescribed by: RIKA STOREY on 04/18/20 1304 Metronidazole (Flagyl) 500 Mg Tablet, 1 TAB PO BID for diabetic foot, #20 Prescribed by: KARENA SUTTON MD on 04/18/20 1333 Potassium Chloride (Potassium Chloride ) 20 Meq Tablet.er, 20 MEQ PO DAILY for SUPPLEMENT for 30 Days, #30 Prescribed by: KARENA SUTTON MD on 04/17/20 1403 Discontinued Medications Metoprolol Tartrate (Metoprolol Tartrate) 50 Mg Tablet, 50 MG PO BID for HTN for 30 Days, #60 Ref 2 Prescribed by: ALFA VILLASENOR MD on 09/24/19911 Last Action: Continued on 04/15/20923 by KARENA SUTTON MD Justicifation of Admission Dx: Justifications for Admission: Justification of Admission Dx: Yes Chronic Renal Failure: Cardiac Arrhythmias KARENA SUTTON MD Apr 19, 2020 14:26
[2020-04-19 15:00] VITALS: BP 147/82
--- NOTE | 2020-04-19 16:23 | NUR ---
Discharge Note: [facility] Discharge instructions and discharge home medications reviewed with Patient and a copy given. All questions have been answered and understanding verbalized. The following instructions and handouts were given: wound care Discontinued lines and drains: IV catheter removed intact. Tele monitor removed Patient discharged to [facility] with [facility] via wheelchair.
[2020-04-20] MEDS ORDERED: LOSARTAN POTASSIUM 50 MG TABLET. PO SCH (09:00)
--- NOTE | 2020-04-20 09:08 | PDOC2 ---
CONSULT Date of Consult Date of Consult DATE: 04/18/20 TIME: 94738 Reason for Consult Reason for Consult: Right foot diabetic ulcer Referring Physician Referring Physician: Dr. Boyd Identification/Chief Complaint Chief Complaint Patient is known to the wound care center. He has longstanding right Charcot deformity with midfoot ulceration. It was noted to have developed significant worsening recently with enlargement and skin discoloration. Offloading has been problematic for this high fall risk patient who is unsteady even with a walker. He lives at home, self cares and has significant compliance issues regarding glucose, nutrition, offloading and wound care direction. Source Source: Chart review, Patient History of Present Illness Reason for Visit: Patient recently admitted through the emergency department for hypotension and electrolyte imbalance. Subsequent to this was finding of worsening right foot DFU. At this time patient is awake and nondistressed with stabilization of vital signs. Past Medical History Cardiovascular: HTN, Hyperlipidemia Pulmonary: No pertinent hx CENTRAL NERVOUS SYSTEM: Other GI: No pertinent hx Heme/Onc: No pertinent hx Hepatobiliary: No pertinent hx Psych: No pertinent hx Musculoskeletal: Osteoarthritis Rheumatologic: No pertinent hx Infectious disease: No pertinent hx Renal/: No pertinent hx Endocrine: Diabetes Past Surgical History Past Surgical History: Other (Right toe amputation) Family History Family History: Diabetes Social History Quit ALCOHOL: occassional Drugs: None Lives: Alone Current Problem List Problem List Problems Medical Problems: (1) Edema of both legs Status: Acute (2) Hypertensive urgency Status: Acute (3) Hypokalemia Status: Acute (4) Pleural effusion, right Status: Acute Current Medications Current Medications Current Medications Potassium Chloride (Klor-Con) 80 meq 1X ONCE PO Last administered on 04/14/20at 12:37; Start 04/14/20 at 12:30; Stop 04/14/20 at 12:31; Status DC Hydralazine HCl (Apresoline Inj) 10 mg 1X ONCE IVP Last administered on 04/14/20at 13:56; Start 04/14/20 at 13:45; Stop 04/14/20 at 13:46; Status DC Fentanyl Citrate (Fentanyl 2ml Vial) 100 mcg 1X ONCE IVP Last administered on 04/14/20at 15:10; Start 04/14/20 at 15:00; Stop 04/14/20 at 15:01; Status DC Ondansetron HCl (Zofran) 4 mg PRN Q8HRS PRN IV NAUSEA/VOMITING; Start 04/14/20 at 16:00; Stop 04/15/20 at 15:59; Status DC Morphine Sulfate (Morphine Sulfate) 2 mg PRN Q2HR PRN IV PAIN; Start 04/14/20 at 16:00; Stop 04/15/20 at 09:31; Status DC Labetalol HCl (Normodyne Iv Push) 20 mg 1X ONCE IVP Last administered on 04/14/20at 16:30; Start 04/14/20 at 16:15; Stop 04/14/20 at 16:16; Status DC Amlodipine Besylate (Norvasc) 10 mg DAILY PO Last administered on 04/19/20 08:32; Start 04/15/20 at 10:00; Stop 04/19/20 at 16:34; Status DC Aspirin (Ecotrin) 81 mg DAILYWBKFT PO Last administered on 04/19/20at 08:30; Start 04/15/20 at 10:00; Stop 04/19/20 at 16:34; Status DC Atorvastatin Calcium (Lipitor) 20 mg QHS PO Last administered on 04/18/20at 20:27; Start 04/15/20 at 21:00; Stop 04/19/20 at 16:34; Status DC Insulin Glargine (Lantus Syringe) 8 unit QHS SQ Last administered on 04/18/20at 20:32; Start 04/15/20 at 21:00; Stop 04/19/20 at 16:34; Status DC Losartan Potassium (Cozaar) 50 mg DAILY PO Last administered on 04/19/20at 08:30; Start 04/15/20 at 10:00; Stop 04/19/20 at 11:01; Status DC Metoprolol Tartrate (Lopressor) 50 mg BID PO Last administered on 04/15/20at 22:29; Start 04/15/20 at 10:00; Stop 04/16/20 at 02:32; Status DC Insulin Human Lispro (HumaLOG) 0-7 UNITS TIDWMEALS SQ Last administered on 04/15/20at 13:12; Start 04/15/20 at 12:00; Stop 04/19/20 at 16:34; Status DC Dextrose (Dextrose 50%-Water Syringe) 12.5 gm PRN Q15MIN PRN IV SEE COMMENTS; Start 04/15/20 at 09:30; Stop 04/19/20 at 16:34; Status DC Cefdinir (Omnicef) 300 mg BID PO Last administered on 04/18/20at 09:18; Start 04/15/20 at 16:00; Stop 04/18/20 at 11:09; Status DC Potassium Chloride (Klor-Con) 40 meq Q2H PO Last administered on 04/16/20at 10:29; Start 04/16/20 at 07:30; Stop 04/16/20 at 09:31; Status DC Apixaban (Eliquis) 5 mg BID PO Last administered on 04/19/20at 08:30; Start 04/16/20 at 21:00; Stop 04/19/20 at 16:34; Status DC Info (Anti-Coagulation Monitoring By Pharmacy) 1 each PRN DAILY PRN MC SEE COMMENTS Last administered on 04/18/20at 15:36; Start 04/16/20 at 15:30; Stop 04/19/20 at 16:34; Status DC Lactobacillus Rhamnosus (Culturelle) 1 cap BID PO Last administered on 04/19/20at 08:29; Start 04/17/20 at 21:00; Stop 04/19/20 at 16:34; Status DC Multivitamins (Thera M Plus) 1 tab DAILY PO Last administered on 04/19/20at 08:30; Start 04/18/20 at 09:00; Stop 04/19/20 at 16:34; Status DC Ascorbic Acid (Vitamin C) 500 mg BID PO Last administered on 04/19/20at 08:30; Start 04/17/20 at 21:00; Stop 04/19/20 at 16:34; Status DC Labetalol HCl (Normodyne Iv Push) 10 mg 1X ONCE IVP Last administered on 04/18/20at 11:26; Start 04/18/20 at 09:45; Stop 04/18/20 at 09:46; Status DC Micafungin Sodium 100 mg/Dextrose 100 ml @ 100 mls/hr Q24H IV Last administered on 04/18/20at 11:41; Start 04/18/20 at 12:00; Stop 04/19/20 at 16:34; Status DC Ceftriaxone Sodium (Rocephin) 2 gm Q24H IVP Last administered on 04/18/20at 11:34; Start 04/18/20 at 11:30; Stop 04/19/20 at 16:34; Status DC Metronidazole (Flagyl) 500 mg Q12HR PO Last administered on 04/19/20at 08:30; Start 04/18/20 at 12:00; Stop 04/19/20 at 16:34; Status DC Metoprolol Tartrate (Lopressor) 12.5 mg BID PO Last administered on 04/19/20at 08:29; Start 04/19/20 at 09:00; Stop 04/19/20 at 16:34; Status DC Losartan Potassium (Cozaar) 50 mg DAILY PO ; Start 04/20/20 at 09:00; Stop 04/19/20 at 16:34; Status DC Hydralazine HCl (Apresoline) 25 mg BID PO Last administered on 04/19/20at 11:52; Start 04/19/20 at 11:15; Stop 04/19/20 at 16:34; Status DC Cephalexin HCl (Keflex) 500 mg 1X ONCE PO Last administered on 04/19/20at 15:13; Start 04/19/20 at 12:30; Stop 04/19/20 at 12:31; Status DC Active Scripts Active Keflex (Cephalexin) 500 Mg Capsule 1 Cap PO QID 10 Days Flagyl (Metronidazole) 500 Mg Tablet 1 Tab PO BID Hydralazine Hcl 25 Mg Tablet 1 Tab PO BID 30 Days Metoprolol Tartrate 25 Mg Tablet 0.5 Tab PO BID 30 Days Potassium Chloride (Potassium Chloride) 20 Meq Tablet.er 20 Meq PO DAILY 30 Days Lasix (Furosemide) 40 Mg Tablet 1 Tab PO DAILY 30 Days Eliquis (Apixaban) 5 Mg Tablet 5 Mg PO BID 30 Days Cozaar (Losartan Potassium) 50 Mg Tablet 50 Mg PO DAILY 30 Days Lantus (Insulin Glargine,Hum.rec.anlog) 100 Unit/1 Ml Vial 8 Unit SQ QHS 30 Days Aspirin Ec (Aspirin) 81 Mg Tablet.dr 81 Mg PO DAILYWBKFT 30 Days Amlodipine Besylate 10 Mg Tablet 10 Mg PO DAILY 30 Days Atorvastatin Calcium 20 Mg Tablet 20 Mg PO QHS 90 Days Allergies Allergies: Coded Allergies: No Known Drug Allergies (Unverified , 05/21/17) ROS Review of System Negative except as otherwise noted. General: YES: Fatigue (Longstanding) Cardiovascular: yes Edema (Chronic and impressive lower extremity edema), yes Other (Markedly sedentary) Musculoskeletal: Yes Gait Disturbance, Yes Joint Pain, Yes Muscular Weakness Skin: Yes Dry Skin, Yes Other (Right midfoot Charcot deformity with DFU) Physical Exam General: Oriented X3, No acute distress HEENT: Atraumatic, PERRLA, EOMI, Mucous membr. moist/pink Lungs: Other (Decreased breath sounds in bases) Abdomen: Normal bowel sounds, Soft Extremities: No cyanosis, Other (3 mm pretibial edema bilaterally) Skin: Other (Diabetic Liz 3 ulceration right midfoot with evidence of muscle necrosis and widespread skin maceration and discoloration.) Neuro: Normal speech, Other (Diabetic neuropathy lower extremity) Psych/Mental Status: Mental status NL, Mood NL MUSCULOSKELETAL: Other (Right foot Charcot deformity) Vitals VITALS Vital Signs Date Time Temp Pulse Resp B/P (MAP) Pulse Ox O2 Delivery O2 Flow Rate FiO2 04/19/20 15:00 97.9 67 12 147/82 (103) 94 Room Air 97.9 Labs Labs Laboratory Tests Test 04/18/20 10:34 04/18/20 16:10 04/18/20 20:14 04/19/20 02:40 Glucose (Fingerstick) 135 mg/dL (70-99) 138 mg/dL (70-99) 133 mg/dL (70-99) White Blood Count 3.7 x10^3/uL (4.0-11.0) Red Blood Count 3.36 x10^6/uL (4.30-5.70) Hemoglobin 10.2 g/dL (13.0-17.5) Hematocrit 30.1 % (39.0-53.0) Mean Corpuscular Volume 90 fL (79-100) Mean Corpuscular Hemoglobin 31 pg (25-35) Mean Corpuscular Hemoglobin Concent 34 g/dL (31-37) Red Cell Distribution Width 16.1 % (11.5-14.5) Platelet Count 178 x10^3/uL (140-400) Neutrophils (%) (Auto) 65 % (31-73) Lymphocytes (%) (Auto) 23 % (24-48) Monocytes (%) (Auto) 8 % (0-9) Eosinophils (%) (Auto) 3 % (0-3) Basophils (%) (Auto) 1 % (0-3) Neutrophils # (Auto) 2.4 x10^3/uL (1.8-7.7) Lymphocytes # (Auto) 0.8 x10^3/uL (1.0-4.8) Monocytes # (Auto) 0.3 x10^3/uL (0.0-1.1) Eosinophils # (Auto) 0.1 x10^3/uL (0.0-0.7) Basophils # (Auto) 0.0 x10^3/uL (0.0-0.2) Test 04/19/20 07:45 Glucose (Fingerstick) 95 mg/dL (70-99) Assessment/Plan Assessment/Plan Historical diabetic Mendoza 3 ulceration of the right midfoot Following informed consent of the patient and after discussion of risk of bleeding, patient underwent an excisional debridement of subcutaneous and necrotic tissue at the right midfoot utilizing forceps scissors and scalpel. Total area debrided roughly 7 cm x 5 cm. Total area debrided roughly 35 cm. Minimal bleeding occurred which was stopped easily with pressure. This was well-tolerated by the patient. Following this appropriate wound dressings were placed. Patient will follow-up in the wound care center for care of the ulcer. Risk of major amputation remains high in this individual. Recommendations and input for discharge planning made. ANAT WALKER DO Apr 20, 2020 09:08
== END 2020-04-19 16:34 | DRG 291 ==
LOC: ER 10:37 → 6 SOUTH 16:00
PROVIDERS: ADMIT Internal Medicine; ATTEND Internal Medicine
DX: I13.0 Hypertensive heart and chronic kidney disease with heart failure and stage 1 through stage 4 chronic kidney disease, or unspecified chronic kidney disease (principal); I50.43 Acute on chronic combined systolic (congestive) and diastolic (congestive) heart failure; N17.9 Acute kidney failure, unspecified; J98.11 Atelectasis; L97.419 Non-pressure chronic ulcer of right heel and midfoot with unspecified severity; E87.6 Hypokalemia; B35.9 Dermatophytosis, unspecified; D64.9 Anemia, unspecified; E11.22 Type 2 diabetes mellitus with diabetic chronic kidney disease; E11.40 Type 2 diabetes mellitus with diabetic neuropathy, unspecified; E11.610 Type 2 diabetes mellitus with diabetic neuropathic arthropathy; E11.621 Type 2 diabetes mellitus with foot ulcer; E66.01 Morbid (severe) obesity due to excess calories; E78.00 Pure hypercholesterolemia, unspecified; E78.5 Hyperlipidemia, unspecified; I16.0 Hypertensive urgency; I48.0 Paroxysmal atrial fibrillation; I89.0 Lymphedema, not elsewhere classified; L97.519 Non-pressure chronic ulcer of other part of right foot with unspecified severity; N18.3 Chronic kidney disease, stage 3 (moderate); Z82.49 Family history of ischemic heart disease and other diseases of the circulatory system; Z83.3 Family history of diabetes mellitus; Z89.429 Acquired absence of other toe(s), unspecified side; Z91.19 Patient's noncompliance with other medical treatment and regimen; Z91.81 History of falling; M19.90 Unspecified osteoarthritis, unspecified site; Z68.37 Body mass index [BMI] 37.0-37.9, adult; Z79.899 Other long term (current) drug therapy; Z20.828 Contact with and (suspected) exposure to other viral communicable diseases
CPT/HCPCS: 36415; 71045; 76770; 80048; 80053; 82962; 83735; 83880; 84484; 85025; 85610; 85730; 86140; 93005; 93306; 93926; 93970; 96374; 96375; 99285; J0360; J0696; J1815; J2248; J3010; J3490; J7060; U0003; 97530-GP; 97535-GO; G0378

== ENCOUNTER 2020-05-09 19:36 | Inpatient (IN) | payer MEDICARE ==
[~2020-05-09] VITALS: Ht 188 cm; Wt 137.1 kg
[~2020-05-09 19:36] MED LIST changes: +APIX5TAB PO; -ASPI-612 PO; +ASPI-886 PO; +CEPH-264 PO; +FURO-68 PO; +HYDR-2868 PO; +METO25TA4 PO; +METR500T PO; +POTA20TA4 PO
[2020-05-09] MEDS ORDERED: LIDOCAINE 1% PF 2 ML VIAL. ONE (20:44)
[2020-05-09] MEDS ORDERED: LIDOCAINE 1% PF 2 ML VIAL. INJ ONE (20:45)
--- NOTE | 2020-05-09 21:24 | PHYS DOC ---
Past Medical History Past Medical History: Diabetes-Type II, High Cholesterol, Hypertension Past Surgical History: Other Additional Past Surgical Histo: toe x2 amputation R foot Smoking Status: Never Smoker Alcohol Use: Occasionally Drug Use: None General Adult EDM: Chief Complaint: MECHANICAL FALL HPI: HPI: Patient is a 60 year old male with past medical history hypertension diabetes hyperlipidemia A. fib on anticoagulation presents for evaluation after mechanical fall. Patient states his bilateral lower extremities have been weak and gave out patient fell and hit his head. Patient denies any loss of consciousness. On exam patient has a 1 cm laceration left earlobe. Patient also has some midline C-spine tenderness at the level of C5-C6. Patient denies any chest or abdominal or upper or lower extremity pain. Patient does have chronic bilateral lower extremity edema with some wounds to his right foot. Patient states he does not feel comfortable going home. [facility] states patient living conditions suboptimall. Review of Systems: Review of Systems: Constitutional: Denies fever or chills. [] Eyes: Denies change in visual acuity. [] HENT: Denies nasal congestion or sore throat. [] Respiratory: Denies cough or shortness of breath. [] Cardiovascular: Denies chest pain or edema. [] GI: Denies abdominal pain, nausea, vomiting, bloody stools or diarrhea. [] : Denies dysuria. [] Musculoskeletal: Denies back pain or joint pain. [] Integument: Denies rash. [] Neurologic: Denies headache, focal weakness or sensory changes. [] Endocrine: Denies polyuria or polydipsia. [] Lymphatic: Denies swollen glands. [] Psychiatric: Denies depression or anxiety. [] Heart Score: Risk Factors: Risk Factors: DM, Current or recent (<one month) smoker, HTN, HLP, family history of CAD, obesity. Risk Scores: Score 0 - 3: 2.5% MACE over next 6 weeks - Discharge Home Score 4 - 6: 20.3% MACE over next 6 weeks - Admit for Clinical Observation Score 7 - 10: 72.7% MACE over next 6 weeks - Early Invasive Strategies Current Medications: Current Medications Medications (Trade) Dose Ordered Sig/Adiel Start Time Stop Time Status Last Admin Dose Admin Lidocaine HCl (Xylocaine-Mpf 1% 2ml Vial) 2 ml 1X ONCE 05/09/20 20:45 05/09/20 20:46 DC 05/09/20 20:45 2 ML Allergies: Allergies: Allergies Coded Allergies Type Severity Reaction Last Updated Verified No Known Drug Allergies 05/21/17 No Physical Exam: PE: Constitutional: Well developed, well nourished, no acute distress, non-toxic appearance. [] HENT: Normocephalic,bleeding from left ear-- 1 cm laceration Eyes: , EOMI, conjunctiva normal, no discharge. [] Neck: Normal range of motion, no tenderness, supple, Cardiovascular:Heart rate regular rhythm, Lungs & Thorax: no respiratory distress Abdomen: , soft, no tenderness, no masses, Skin: Warm, dry, erythema feet, chronic wound right Back: No tenderness, no CVA tenderness. [] Extremities: pitting edema lower extremities Neurologic: Alert and oriented X 3, normal motor function, normal sensory function, no focal deficits noted. [] Psychologic: Affect normal, judgement normal, mood normal. [] Current Patient Data: Vital Signs: Vital Signs Date Time Temp Pulse Resp B/P (MAP) Pulse Ox O2 Delivery O2 Flow Rate FiO2 05/09/20 21:02 98.6 109 18 168/84 (112) 98 Room Air 98.6 EKG: EKG: [] Radiology/Procedures: Radiology/Procedures: [] Course & Med Decision Making: Course & Med Decision Making Pertinent Labs and Imaging studies reviewed. (See chart for details) [] Dragon Disclaimer: Dragon Disclaimer: This electronic medical record was generated, in whole or in part, using a voice recognition dictation system. Departure Departure Impression: Primary Impression: Fall Additional Impression: Weakness Disposition: ADMITTED INPATIENT Condition: IMPROVED Referrals: UNKNOWN PCP NAME (PCP) Justicifation of Admission Dx: Justifications for Admission: Justification of Admission Dx: Yes Chronic Renal Failure: Cardiac Arrhythmias MACKENZIE LAINEZ DO May 09, 2020 21:24
--- NOTE | 2020-05-09 21:38 | RAD ---
CT head without contrast. CT cervical spine without contrast PQRS statement: CT scans at this facility use dose reduction including either automated exposure control, iterative reconstructions, and /or weight based radiation dosing via mA and kV modification when appropriate to reduce radiation dose to as low as reasonably achievable. HISTORY: Head injury. CT head findings: No intracranial hemorrhage, mass, hydrocephalus or infarction. Orbits, mastoids and bones are unremarkable. IMPRESSION: Normal exam. CT cervical spine findings: Craniocervical junction intact. Osteoarthritic change C1-C2 limited articulation with bone spurring. Cervical vertebral body height and alignment intact. No fracture of the cervical spine. Opacity at the right lung apex could be pleural fluid with density of 15 units. Cervical disc height loss and disc osteophytes and uncovertebral spurring lower cervical spine contributing to spinal canal and neural foraminal stenoses C4-C5 through C6-C7. There is spinal tissues demonstrate a 1.5 cm partially calcified left posterior thyroid nodule. IMPRESSION: 1. No acute osseous injury of the cervical spine. 2. Right apical pleural effusion. 3. 1.5 cm calcified left thyroid lobe nodule, consider further assessment with thyroid sonography. Electronically signed by: Huan Powell MD (05/09/2020 9:35 PM) [facility]
[2020-05-09 22:20] LABS: BASO # 0.1 x10^3/uL (0.0-0.2); BASO % 1 % (0-3); EOS # 0.1 x10^3/uL (0.0-0.7); EOS % 2 % (0-3); HEMATOCRIT 29.9 % (39.0-53.0); HEMOGLOBIN 10.2 g/dL (13.0-17.5); LYMPH # 0.6 x10^3/uL (1.0-4.8); LYMPH % 14 % (24-48); MEAN CORPUSCULAR HEMOGLOBIN 31 pg (25-35); MEAN CORPUSCULAR HGB CONC 34 g/dL (31-37); MEAN CORPUSCULAR VOLUME 91 fL (79-100); MONO # 0.3 x10^3/uL (0.0-1.1); MONO % 8 % (0-9); NEUT # 3.4 x10^3/uL (1.8-7.7); NEUT % 75 % (31-73); PLATELET COUNT 178 x10^3/uL (140-400); RED CELL DISTRIBUTION WIDTH 16.2 % (11.5-14.5); WHITE BLOOD COUNT 4.6 x10^3/uL (4.0-11.0)
[2020-05-09 22:28] LABS: CALCIUM 8.9 mg/dL (8.5-10.1); CREATININE 1.9 mg/dL (0.7-1.3); GFR 36.1; POTASSIUM 4.1 mmol/L (3.5-5.1)
[2020-05-09 22:29] LABS: PROTHROMBIN TIME PATIENT 17.7 SEC (11.7-14.0)
[2020-05-09 22:33] LABS: ALBUMIN 2.9 g/dL (3.4-5.0); ALBUMIN/GLOBULIN RATIO 0.6 (1.0-1.7); TOTAL BILIRUBIN 0.9 mg/dL (0.2-1.0); TOTAL PROTEIN 7.5 g/dL (6.4-8.2)
--- NOTE | 2020-05-10 04:00 | NUR ---
Patient admitted to room 410 from ED. Patient alert and oriented x 4. Patient denies pain. Patient incontinent of urine. Patient cleaned and randi care provided. Dressings to wounds on BLE removed as saturated with urine. Will Photograph and document and redress wounds. See admission assessment/documentation. Call light in reach, Patient instructed on use and verbalized understanding.
[2020-05-10 06:59] VITALS: BP 145/77
[2020-05-10] MEDS ORDERED: ASCO500T3 PO (08:07)
[2020-05-10] MEDS ORDERED: MULT-246 PO (08:10)
--- NOTE | 2020-05-10 08:26 | NUR ---
Pt admitted due to LE weakness resulting in mechanical fall. Would benefit from PT/OT assessment to address fall at home. Please write PT/OT eval and treat orders if you agree. Addendum: 05/10/20 at 0826 by EDDIE SMITH PT Amended: Links added.
--- NOTE | 2020-05-10 08:50 | NUR ---
SW following. Discussed with RN, pt had been at [facility] 04/19/2020-05/09/2020. Pt is room air, regular diet, PT/OT ordered. SW will continue to follow.
[2020-05-10] MEDS: METOPROLOL TART IMMED RELEASE 25 MG TABLET. PO SCH ×2 (09:38→21:09)
[2020-05-10] MEDS: MULTIVITAMIN with MINERAL TABLET. PO SCH (09:38)
[2020-05-10] MEDS: ASCORBIC ACID 500 MG TABLET PO SCH (09:39)
[2020-05-10] MEDS: POTASSIUM CHLORIDE 20 MEQ TABLET.ER. PO SCH (09:39)
[2020-05-10] MEDS: FUROSEMIDE 40 MG TABLET. PO SCH (09:39)
[2020-05-10] MEDS: LOSARTAN POTASSIUM 50 MG TABLET. PO SCH (09:39)
[2020-05-10] MEDS: amLODIPine BESYLATE 10 MG TABLET PO SCH (09:39)
[2020-05-10] MEDS: APIXABAN 5 MG TABLET. PO SCH ×2 (09:39→21:10)
[2020-05-10 10:49] VITALS: BP 169/92
[2020-05-10] MEDS ORDERED: ANTI-COAG MONITOR BY PHARMACY. MC PRN (12:15)
--- NOTE | 2020-05-10 12:41 | HP ---
ADMIT DATE: 05/10/2020 CHIEF COMPLAINT: Fall. HISTORY OF PRESENT ILLNESS: The patient is a pleasant 60-year-old male who has been falling. He states he is weak. His bilateral lower extremities gave out on him and he fell on his head. He had a 1 cm laceration to the left earlobe. He also had some neck pain. I discussed the case with the ER physician. We have admitted the patient for further evaluation and treatment. PAST MEDICAL HISTORY: Diabetes, hypertension, hyperlipidemia, toe amputation, chronic anticoagulation with Eliquis. ALLERGIES: None. FAMILY HISTORY: Hypertension. SOCIAL HISTORY: He does not drink, smoke or take drugs. MEDICATIONS: Reviewed, please refer to the MRAD. REVIEW OF SYSTEMS: GENERAL: No history of weight change, weakness or fevers. SKIN: No bruising, hair changes or rashes. EYES: No blurred, double or loss of vision. NOSE AND THROAT: No history of nosebleeds, hoarseness or sore throat. HEART: No history of palpitations, chest pain or shortness of breath on exertion. LUNGS: Denies cough, hemoptysis, wheezing or shortness of breath. GASTROINTESTINAL: Denies changes in appetite, nausea, vomiting, diarrhea or constipation. GENITOURINARY: No history of frequency, urgency, hesitancy or nocturia. NEUROLOGIC: He complains of weakness. PSYCHIATRIC: No history of panic, anxiety or depression. ENDOCRINE: No history of heat or cold intolerance, polyuria or polydipsia. EXTREMITIES: Denies muscle weakness, joint pain, pain on walking or stiffness. PHYSICAL EXAMINATION: VITALS: Within normal limits and are stable. GENERAL: No apparent distress. Alert and oriented. HEENT: Normal cephalic atraumatic, external auditory canals are patent. Eyes: Extraocular muscles are intact, pupils are equally round and reactive to light and accommodation. MUSCULOSKELETAL: Well developed, well nourished, good range of motion. ENDOCRINE: No thyromegaly was palpated. LYMPHATICS: No cervical chain or axillary nodes were noted. HEMATOPOIETIC: No bruising. NECK: Supple, no JVD, no thyromegaly was noted. LUNGS: Clear to auscultation in all lung santana without rhonchi or wheezing. HEART: RRR, S1, S2 present. Peripheral pulses intact, no obvious murmurs were noted. ABDOMEN: Soft, nontender. Positive bowel sounds no organomegaly, normal bowel sounds. EXTREMITIES: Without any cyanosis, clubbing, or edema. Pedal pulses intact, Homans sign is negative. NEUROLOGIC: Normal speech, normal tone. A and O x 3, moves all extremities, no obvious focal deficits. PSYCHIATRIC: Normal affect, normal mood. Stable. SKIN: No ulcerations or rashes, good skin turgor, no jaundice. VASCULAR: Good capillary refill, neurovascular bundle appears to be intact. LABORATORY DATA: Hemoglobin is 10.2. Electrolytes: BUN is 32, creatinine 1.9, glucose 115. INR is 1.5. ASSESSMENT AND PLAN: Falls, chronic renal insufficiency, chronic anticoagulation in an elderly male with the above-noted comorbidities. For now, we are going to do physical therapy and occupational therapy. Home meds. DVT prophylaxis. Full code. Wound care. Suspect he might need penitentiary. TULIO DANGELO DO DR: LEIGHANN/melanie JOB#: [id number] / [id number]
[2020-05-10 14:28] VITALS: BP 135/81
--- NOTE | 2020-05-10 16:45 | NUR ---
Wound Care Pt is a current pt of [facility]. He was admitted 04/14 to [facility] and went to [facility], pt stated he spent most of his time there in isolation and only had therapy twice. Pt stated he is very weak now so he fell at home. Pt does not feel safe to be at home alone. Pt has DFU ot right plantar foot that appears to be healing. Dressed with hydrofera blue, ABD pad and kerlix. Pt has multiple open blisters to BLE. All blisters were dressed with collagen, aquacel ag and abd pads, secured with kerlix. No other wounds noted on full skin inspection. Pt educated on PU prevention, verbalized understanding he should be turning every couple hours and also is to remain NWB on right foot and using offloading shoe for all transfers. will continue to follow for possible changes.
--- NOTE | 2020-05-10 17:30 | NUR ---
assumed care from Aparna patient is sleeping at this time.
[2020-05-10 19:00] VITALS: BP 127/68
[2020-05-10] MEDS: ATORVASTATIN CALCIUM 20 MG TABLET PO SCH (21:10)
[2020-05-10] MEDS: INSULIN GLARGINE SYRINGE. SQ SCH (21:16)
[2020-05-10 23:02] VITALS: BP 150/75
[2020-05-11 03:00] VITALS: BP 152/69
[2020-05-11 07:56] VITALS: BP 166/84
[2020-05-11] MEDS: LOSARTAN POTASSIUM 50 MG TABLET. PO SCH (08:15)
[2020-05-11] MEDS: amLODIPine BESYLATE 10 MG TABLET PO SCH (08:15)
[2020-05-11] MEDS: ASCORBIC ACID 500 MG TABLET PO SCH (08:15)
[2020-05-11] MEDS: MULTIVITAMIN with MINERAL TABLET. PO SCH (08:15)
[2020-05-11] MEDS: POTASSIUM CHLORIDE 20 MEQ TABLET.ER. PO SCH (08:16)
[2020-05-11] MEDS: ASPIRIN ENTERIC COATED 81 MG TABLET.DR. PO SCH (08:16)
[2020-05-11] MEDS: FUROSEMIDE 40 MG TABLET. PO SCH (08:16)
[2020-05-11] MEDS: APIXABAN 5 MG TABLET. PO SCH ×2 (08:16→20:52)
[2020-05-11] MEDS: METOPROLOL TART IMMED RELEASE 25 MG TABLET. PO SCH ×2 (08:16→20:52)
--- NOTE | 2020-05-11 10:46 | NUR ---
JATINDER following. Discussed with RN, PT recommending SNU, pt declined OT yesterday. Pt is in his copay days for SNU. SW met with pt to discuss (no isolation precautions at the time), pt advised he cannot afford the copay which is why he left [facility] at 05/09/2020. Pt agreeable to acute rehab, if PT also thinks pt could manage at acute rehab. JATINDER tried to discuss with pt where the locations and facilities are and the preferred providers, however pt continued to cut SW off stating he didn't care where they are. JATINDER spoke with deven Patterson - she will see pt today and make sure pt would be appropriate for acute rehab. JATINDER will continue to follow. Addendum: 05/11/20 at 1524 by JOHN TOBIAS [facility] advised they are going to try and get the copay's wiped for pt. [facility] also advised pt would not need a COVID-19 test as he had just discharged from there on 05/09/2020. JATINDER checked with [facility] multiple times throughout the day, did not have a response from their CM yet. JATINDER also waiting on therapy notes to say acute rehab. JATINDER called at 1500 to [facility] - their CM denied to cover copay. JATINDER faxed referral to [facility] acute rehab and [facility] acute rehab - therapy notes still stating SNU. JATINDER discussed with Venu Mancuso - both PT and OT have left for the day, working on getting recommendation changed. JATINDER will continue to follow. COVID-19 test ordered. RN notified. Addendum: 05/11/20 at 1613 by JOHN GHOSH SW Pt accepted at [facility], pending COVID-19 test result. Fax DC papers and COVID result to [facility] at (fax: [phone]). Call Sunny at [phone] to advise of result and pt discharge. Information written on weekend discharge list for housekeeping aide. JATINDER will continue to follow.
[2020-05-11 11:11] VITALS: BP 157/84
--- NOTE | 2020-05-11 15:09 | PDOC ---
PROGRESS NOTES Chief Complaint Chief Complaint Falls, chronic renal insufficiency, acute on chronic diastolic CHF, afib on chronic anticoagulation Dm2, poor control with foot wounds History of Present Illness History of Present Illness consutl wound care, PT and OT is a [facility] patient, will need skilled cont current Vitals Vitals Vital Signs Date Time Temp Pulse Resp B/P (MAP) Pulse Ox O2 Delivery O2 Flow Rate FiO2 05/11/20 11:11 98.1 73 19 157/84 (108) 94 Room Air 98.1 Physical Exam General: Alert, Cooperative, No acute distress Heart: Regular rate, Normal S2 Lungs: Clear, Other Abdomen: Other Extremities: No cyanosis, Other (2+ edema, and wounds, ) Skin: No rashes Labs LABS Laboratory Tests Test 05/10/20 16:48 05/10/20 21:13 05/11/20 07:41 05/11/20 11:49 Glucose (Fingerstick) 142 mg/dL (70-99) 160 mg/dL (70-99) 104 mg/dL (70-99) 119 mg/dL (70-99) Review of Systems Review of Systems bored, leg weakness, slept OK Comment Review of Relevant I have reviewed the following items melinda (where applicable) has been applied. Labs Laboratory Tests Test 05/09/20 22:07 05/10/20 10:38 05/10/20 16:48 05/10/20 21:13 White Blood Count 4.6 x10^3/uL (4.0-11.0) Red Blood Count 3.30 x10^6/uL (4.30-5.70) Hemoglobin 10.2 g/dL (13.0-17.5) Hematocrit 29.9 % (39.0-53.0) Mean Corpuscular Volume 91 fL (79-100) Mean Corpuscular Hemoglobin 31 pg (25-35) Mean Corpuscular Hemoglobin Concent 34 g/dL (31-37) Red Cell Distribution Width 16.2 % (11.5-14.5) Platelet Count 178 x10^3/uL (140-400) Neutrophils (%) (Auto) 75 % (31-73) Lymphocytes (%) (Auto) 14 % (24-48) Monocytes (%) (Auto) 8 % (0-9) Eosinophils (%) (Auto) 2 % (0-3) Basophils (%) (Auto) 1 % (0-3) Neutrophils # (Auto) 3.4 x10^3/uL (1.8-7.7) Lymphocytes # (Auto) 0.6 x10^3/uL (1.0-4.8) Monocytes # (Auto) 0.3 x10^3/uL (0.0-1.1) Eosinophils # (Auto) 0.1 x10^3/uL (0.0-0.7) Basophils # (Auto) 0.1 x10^3/uL (0.0-0.2) Prothrombin Time 17.7 SEC (11.7-14.0) Prothromb Time International Ratio 1.5 (0.8-1.1) Activated Partial Thromboplast Time 49 SEC (24-38) Sodium Level 141 mmol/L (136-145) Potassium Level 4.1 mmol/L (3.5-5.1) Chloride Level 105 mmol/L (98-107) Carbon Dioxide Level 28 mmol/L (21-32) Anion Gap 8 (6-14) Blood Urea Nitrogen 32 mg/dL (8-26) Creatinine 1.9 mg/dL (0.7-1.3) Estimated GFR (Cockcroft-Gault) 36.1 BUN/Creatinine Ratio 17 (6-20) Glucose Level 109 mg/dL (70-99) Calcium Level 8.9 mg/dL (8.5-10.1) Total Bilirubin 0.9 mg/dL (0.2-1.0) Aspartate Amino Transf (AST/SGOT) 31 U/L (15-37) Alanine Aminotransferase (ALT/SGPT) 26 U/L (16-63) Alkaline Phosphatase 156 U/L (46-116) Total Protein 7.5 g/dL (6.4-8.2) Albumin 2.9 g/dL (3.4-5.0) Albumin/Globulin Ratio 0.6 (1.0-1.7) Glucose (Fingerstick) 115 mg/dL (70-99) 142 mg/dL (70-99) 160 mg/dL (70-99) Test 05/11/20 07:41 05/11/20 11:49 Glucose (Fingerstick) 104 mg/dL (70-99) 119 mg/dL (70-99) Laboratory Tests Test 05/10/20 16:48 05/10/20 21:13 05/11/20 07:41 05/11/20 11:49 Glucose (Fingerstick) 142 mg/dL (70-99) 160 mg/dL (70-99) 104 mg/dL (70-99) 119 mg/dL (70-99) Medications Current Medications Lidocaine HCl (Xylocaine-Mpf 1% 2ml Vial) 2 ml 1X ONCE INJ Last administered on 05/09/20 20:45; Start 05/09/20 at 20:45; Stop 05/09/20 at 20:46; Status DC Amlodipine Besylate (Norvasc) 10 mg DAILY PO Last administered on 05/11/20 08:15; Start 05/10/20 at 09:00 Apixaban (Eliquis) 5 mg BID PO Last administered on 05/11/20 08:16; Start 05/10/20 at 09:00 Ascorbic Acid (Vitamin C) 500 mg DAILY PO Last administered on 05/11/20 08:15; Start 05/10/20 at 09:00 Aspirin (Ecotrin) 81 mg DAILYWBKFT PO Last administered on 05/11/20 08:16; Start 05/11/20 at 08:00 Atorvastatin Calcium (Lipitor) 20 mg QHS PO Last administered on 05/10/20 21:10; Start 05/10/20 at 21:00 Furosemide (Lasix) 40 mg DAILY PO Last administered on 05/11/20 08:16; Start 05/10/20 at 09:00 Insulin Glargine (Lantus Syringe) 8 unit QHS SQ ; Start 05/10/20 at 21:00 Losartan Potassium (Cozaar) 50 mg DAILY PO Last administered on 05/11/20 08:15; Start 05/10/20 at 09:00 Metoprolol Tartrate (Lopressor) 12.5 mg BID PO Last administered on 05/11/20 08:16; Start 05/10/20 at 09:00 Potassium Chloride (Klor-Con) 20 meq DAILY PO Last administered on 05/11/20 08:16; Start 05/10/20 at 09:00 Multivitamins (Thera M Plus) 1 tab DAILY PO Last administered on 7/2/20at 08:15; Start 05/10/20 at 09:00 Info (Anti-Coagulation Monitoring By Pharmacy) 1 each PRN DAILY PRN MC SEE COMMENTS; Start 05/10/20 at 12:15 Lidocaine HCl (Xylocaine-Mpf 1% 2ml Vial) 2 ml STK-MED ONCE .ROUTE ; Start 05/09/20 at 20:44; Stop 05/10/20 at 14:15; Status DC Active Scripts Active Metoprolol Tartrate 25 Mg Tablet 0.5 Tab PO BID 30 Days Potassium Chloride (Potassium Chloride) 20 Meq Tablet.er 20 Meq PO DAILY 30 Days Lasix (Furosemide) 40 Mg Tablet 1 Tab PO DAILY 30 Days Eliquis (Apixaban) 5 Mg Tablet 5 Mg PO BID 30 Days Cozaar (Losartan Potassium) 50 Mg Tablet 50 Mg PO DAILY 30 Days Lantus (Insulin Glargine,Hum.rec.anlog) 100 Unit/1 Ml Vial 8 Unit SQ QHS 30 Days Aspirin Ec (Aspirin) 81 Mg Tablet.dr 81 Mg PO DAILYWBKFT 30 Days Amlodipine Besylate 10 Mg Tablet 10 Mg PO DAILY 30 Days Atorvastatin Calcium 20 Mg Tablet 20 Mg PO QHS 90 Days Reported Multi-Vitamin Daily (Multivitamin) 1 Each Tablet 1 Tab PO DAILY 30 Days Ascorbic Acid 500 Mg Tablet 500 Mg PO DAILY Vitals/I & O Vital Sign - Last 24 Hours 05/10/20 05/10/20 05/10/20 05/10/20 19:00 20:15 21:09 23:02 Temp 98.3 98.1 98.3 98.1 Pulse 64 69 72 Resp 18 19 B/P (MAP) 127/68 (87) 138/77 150/75 (100) Pulse Ox 98 97 O2 Delivery Room Air Room Air Room Air 05/11/20 05/11/20 05/11/20 05/11/20 03:00 07:56 08:15 08:15 Temp 98.0 98.1 98.0 98.1 Pulse 78 75 75 75 Resp 19 19 B/P (MAP) 152/69 (96) 166/84 (111) 166/84 166/84 Pulse Ox 96 97 O2 Delivery Room Air Room Air 05/11/20 05/11/20 05/11/20 08:16 08:30 11:11 Temp 98.1 98.1 Pulse 75 73 Resp 19 B/P (MAP) 166/84 157/84 (108) Pulse Ox 94 O2 Delivery Room Air Room Air Intake and Output 05/10/20 05/10/20 05/11/20 15:00 23:00 07:00 Intake Total 200 ml 640 ml 240 ml Balance 200 ml 640 ml 240 ml Justicifation of Admission Dx: Justifications for Admission: Justification of Admission Dx: Yes Chronic Renal Failure: Cardiac Arrhythmias ZOEY HERNANDEZ MD May 11, 2020 15:09
[2020-05-11 15:46] VITALS: BP 161/81
[2020-05-11 19:00] VITALS: BP 169/83
[2020-05-11] MEDS: ATORVASTATIN CALCIUM 20 MG TABLET PO SCH (20:52)
[2020-05-11] MEDS: INSULIN GLARGINE SYRINGE. SQ SCH (20:58)
[2020-05-11 23:00] VITALS: BP 145/78
[2020-05-12 03:00] VITALS: BP 148/78
[2020-05-12 07:00] VITALS: BP 151/76
[2020-05-12] MEDS: POTASSIUM CHLORIDE 20 MEQ TABLET.ER. PO SCH (08:58)
[2020-05-12] MEDS: METOPROLOL TART IMMED RELEASE 25 MG TABLET. PO SCH ×2 (08:59→21:19)
[2020-05-12] MEDS: amLODIPine BESYLATE 10 MG TABLET PO SCH (08:59)
[2020-05-12] MEDS: FUROSEMIDE 40 MG TABLET. PO SCH (08:59)
[2020-05-12] MEDS: LOSARTAN POTASSIUM 50 MG TABLET. PO SCH (09:00)
[2020-05-12] MEDS: ASCORBIC ACID 500 MG TABLET PO SCH (09:00)
[2020-05-12] MEDS: ASPIRIN ENTERIC COATED 81 MG TABLET.DR. PO SCH (09:00)
[2020-05-12] MEDS: MULTIVITAMIN with MINERAL TABLET. PO SCH (09:00)
[2020-05-12] MEDS: APIXABAN 5 MG TABLET. PO SCH ×2 (09:00→21:18)
[2020-05-12 11:00] VITALS: BP 141/74
--- NOTE | 2020-05-12 12:42 | NUR ---
DIMPLE test sample acquired. Guerline in lab received sample.
--- NOTE | 2020-05-12 12:52 | SNU/HH DC ---
DISCHARGE ORDERS DISCHARGE INFORMATION: DISCHARGE DATE: May 12, 2020 FINAL DIAGNOSIS Falls, chronic renal insufficiency, foot wounds, chronic poor wound healing acute on chronic diastolic CHF, afib on chronic anticoagulation Dm2, poor control with foot wounds CONDITION ON DISCHARGE: Stable CODE STATUS: Code Status: Full POST DISCHARGE ORDERS: ACTIVITY ORDERS: Activity as tolerated WEIGHT BEARING STATUS: Non weight bearing BATHING ORDERS: Shower-keep dressing dry DIET AFTER DISCHARGE: ADA WOUND/INCISION CARE: Other, see below OTHER ORDERS: to rehab hospital CHECKS AFTER DISCHARGE: CHECKS AFTER DISCHARGE: Check blood sugar, ac/hs TREATMENT/EQUIPMENT ORDERS: Physical Therapy For: Evalulation/Treatment Occupational Therapy For: Evaluation/Treatment DISCHARGE MEDICATIONS: Home Meds Active Scripts Metoprolol Tartrate (METOPROLOL TARTRATE) 25 Mg Tablet, 0.5 TAB PO BID for AFIB for 30 Days, #30 TAB 2 Refills Prov:RIKA STOREY [employer] LENDING ASSISTANT 04/18/20 Potassium Chloride (POTASSIUM CHLORIDE ) 20 Meq Tablet.er, 20 MEQ PO DAILY for SUPPLEMENT for 30 Days, #30 TAB.SR Prov:KARENA SUTTON MD 04/17/20 Furosemide (LASIX) 40 Mg Tablet, 1 TAB PO DAILY for htn for 30 Days, #30 TAB 0 Refills Prov:KARENA SUTTON MD 04/17/20 Apixaban (ELIQUIS) 5 Mg Tablet, 5 MG PO BID for atrial fibrillation for 30 Days, #60 TAB Prov:KARENA SUTTON MD 04/17/20 Losartan Potassium (COZAAR ) 50 Mg Tablet, 50 MG PO DAILY for HTN/DM2 for 30 Days, #30 TAB Prov:ALFA VILLASENOR MD 09/24/19 Insulin Glargine,Hum.rec.anlog (LANTUS) 100 Unit/1 Ml Vial, 8 UNIT SQ QHS for DM2 for 30 Days, #1 EACH 2 Refills Prov:ALFA VILLASENOR MD 09/24/19 Aspirin (ASPIRIN EC) 81 Mg Tablet.dr, 81 MG PO DAILYWBKFT for CAD for 30 Days, #30 TAB.SR 5 Refills Prov:ALFA VILLASENOR MD 09/24/19 Amlodipine Besylate (AMLODIPINE BESYLATE) 10 Mg Tablet, 10 MG PO DAILY for HTN for 30 Days, #30 TAB 5 Refills Prov:ALFA VILLASENOR MD 09/24/19 Atorvastatin Calcium (ATORVASTATIN CALCIUM) 20 Mg Tablet, 20 MG PO QHS for HLD for 90 Days, #90 TAB 3 Refills Prov:ALFA VILLASENOR MD 09/24/19 Reported Medications Multivitamin (MULTI-VITAMIN DAILY) 1 Each Tablet, 1 TAB PO DAILY for supplement for 30 Days, #30 TAB 0 Refills 05/10/20 Ascorbic Acid (ASCORBIC ACID) 500 Mg Tablet, 500 MG PO DAILY for supplement, TAB 05/10/20 ZOEY HERNANDEZ MD May 12, 2020 12:52
--- NOTE | 2020-05-12 12:59 | PDOC ---
PROGRESS NOTES Chief Complaint Chief Complaint Falls, chronic renal insufficiency, acute on chronic diastolic CHF, afib on chronic anticoagulation Dm2, poor control with foot wounds History of Present Illness History of Present Illness to [facility] plan acute rehab, DIMPLE test screen pending for transfer is a [facility] patient, will need skilled cont current Vitals Vitals Vital Signs Date Time Temp Pulse Resp B/P (MAP) Pulse Ox O2 Delivery O2 Flow Rate FiO2 05/12/20 09:00 77 151/76 05/12/20 08:00 Room Air 05/12/20 07:00 98.4 18 94 98.4 Physical Exam General: Alert, Cooperative, No acute distress Heart: Regular rate, Normal S2 Lungs: Clear, Other Abdomen: Other Extremities: No cyanosis, Other (2+ edema, and wounds, ) Skin: No rashes Labs LABS Laboratory Tests Test 05/11/20 16:51 05/11/20 20:52 05/12/20 07:46 05/12/20 11:42 Glucose (Fingerstick) 142 mg/dL (70-99) 155 mg/dL (70-99) 115 mg/dL (70-99) 144 mg/dL (70-99) Comment Review of Relevant I have reviewed the following items melinda (where applicable) has been applied. Labs Laboratory Tests Test 05/10/20 16:48 05/10/20 21:13 05/11/20 07:41 05/11/20 11:49 Glucose (Fingerstick) 142 mg/dL (70-99) 160 mg/dL (70-99) 104 mg/dL (70-99) 119 mg/dL (70-99) Test 05/11/20 16:51 05/11/20 20:52 05/12/20 07:46 05/12/20 11:42 Glucose (Fingerstick) 142 mg/dL (70-99) 155 mg/dL (70-99) 115 mg/dL (70-99) 144 mg/dL (70-99) Laboratory Tests Test 05/11/20 16:51 05/11/20 20:52 05/12/20 07:46 05/12/20 11:42 Glucose (Fingerstick) 142 mg/dL (70-99) 155 mg/dL (70-99) 115 mg/dL (70-99) 144 mg/dL (70-99) Medications Current Medications Lidocaine HCl (Xylocaine-Mpf 1% 2ml Vial) 2 ml 1X ONCE INJ Last administered on 05/09/20 20:45; Start 05/09/20 at 20:45; Stop 05/09/20 at 20:46; Status DC Amlodipine Besylate (Norvasc) 10 mg DAILY PO Last administered on 05/12/20 08:59; Start 05/10/20 at 09:00 Apixaban (Eliquis) 5 mg BID PO Last administered on 05/12/20 09:00; Start 05/10/20 at 09:00 Ascorbic Acid (Vitamin C) 500 mg DAILY PO Last administered on 05/12/20 09:00; Start 05/10/20 at 09:00 Aspirin (Ecotrin) 81 mg DAILYWBKFT PO Last administered on 05/12/20 09:00; St art 05/11/20 at 08:00 Atorvastatin Calcium (Lipitor) 20 mg QHS PO Last administered on 05/11/20 20:52; Start 05/10/20 at 21:00 Furosemide (Lasix) 40 mg DAILY PO Last administered on 05/12/20 08:59; Start 05/10/20 at 09:00 Insulin Glargine (Lantus Syringe) 8 unit QHS SQ ; Start 05/10/20 at 21:00 Losartan Potassium (Cozaar) 50 mg DAILY PO Last administered on 05/12/20 09:00; Start 05/10/20 at 09:00 Metoprolol Tartrate (Lopressor) 12.5 mg BID PO Last administered on 05/12/20 08:59; Start 05/10/20 at 09:00 Potassium Chloride (Klor-Con) 20 meq DAILY PO Last administered on 05/12/20 08:58; Start 05/10/20 at 09:00 Multivitamins (Thera M Plus) 1 tab DAILY PO Last administered on 05/12/20 09:00; Start 05/10/20 at 09:00 Info (Anti-Coagulation Monitoring By Pharmacy) 1 each PRN DAILY PRN MC SEE COMMENTS Last administered on 05/12/20 11:04; Start 05/10/20 at 12:15 Lidocaine HCl (Xylocaine-Mpf 1% 2ml Vial) 2 ml STK-MED ONCE .ROUTE ; Start 05/09/20 at 20:44; Stop 05/10/20 at 14:15; Status DC Active Scripts Active Metoprolol Tartrate 25 Mg Tablet 0.5 Tab PO BID 30 Days Potassium Chloride (Potassium Chloride) 20 Meq Tablet.er 20 Meq PO DAILY 30 Days Lasix (Furosemide) 40 Mg Tablet 1 Tab PO DAILY 30 Days Eliquis (Apixaban) 5 Mg Tablet 5 Mg PO BID 30 Days Cozaar (Losartan Potassium) 50 Mg Tablet 50 Mg PO DAILY 30 Days Lantus (Insulin Glargine,Hum.rec.anlog) 100 Unit/1 Ml Vial 8 Unit SQ QHS 30 Days Aspirin Ec (Aspirin) 81 Mg Tablet.dr 81 Mg PO DAILYWBKFT 30 Days Amlodipine Besylate 10 Mg Tablet 10 Mg PO DAILY 30 Days Atorvastatin Calcium 20 Mg Tablet 20 Mg PO QHS 90 Days Reported Multi-Vitamin Daily (Multivitamin) 1 Each Tablet 1 Tab PO DAILY 30 Days Ascorbic Acid 500 Mg Tablet 500 Mg PO DAILY Vitals/I & O Vital Sign - Last 24 Hours 05/11/20 05/11/20 05/11/20 05/11/20 15:46 19:00 20:00 20:52 Temp 98.1 98.2 98.1 98.2 Pulse 77 80 80 Resp 19 20 B/P (MAP) 161/81 (107) 169/83 (111) 169/83 Pulse Ox 94 95 O2 Delivery Room Air Room Air Room Air 05/11/20 05/12/20 05/12/20 05/12/20 23:00 03:00 07:00 08:00 Temp 97.7 98.4 98.4 97.7 98.4 98.4 Pulse 79 73 77 Resp 18 20 18 B/P (MAP) 145/78 (100) 148/78 (101) 151/76 (101) Pulse Ox 95 97 94 O2 Delivery Room Air Room Air Room Air Room Air 05/12/20 05/12/20 05/12/20 08:59 08:59 09:00 Pulse 77 77 77 B/P (MAP) 151/76 151/76 151/76 Intake and Output 05/11/20 05/11/20 05/12/20 15:00 23:00 07:00 Intake Total 550 ml 380 ml 0 ml Balance 550 ml 380 ml 0 ml Justicifation of Admission Dx: Justifications for Admission: Justification of Admission Dx: Yes Chronic Renal Failure: Cardiac Arrhythmias ZOEY HERNANDEZ MD May 12, 2020 12:59
[2020-05-12 15:00] VITALS: BP 149/83
[2020-05-12 19:00] VITALS: BP 157/79
[2020-05-12] MEDS: INSULIN GLARGINE SYRINGE. SQ SCH (21:00)
[2020-05-12] MEDS: ATORVASTATIN CALCIUM 20 MG TABLET PO SCH (21:19)
--- NOTE | 2020-05-12 22:06 | NUR ---
Medication Administration: Patient refused 2100 Lantus, patient stated that he is allergic to the slow acting insulin.
[2020-05-12 23:00] VITALS: BP 140/74
[2020-05-13 03:00] VITALS: BP 164/84
[2020-05-13 07:00] VITALS: BP_SYST 155; BP_SYST 168; BP_DIAS 83
[2020-05-13] MEDS: ASPIRIN ENTERIC COATED 81 MG TABLET.DR. PO SCH (08:12)
[2020-05-13] MEDS: ASCORBIC ACID 500 MG TABLET PO SCH (08:12)
[2020-05-13] MEDS: amLODIPine BESYLATE 10 MG TABLET PO SCH (08:13)
[2020-05-13] MEDS: METOPROLOL TART IMMED RELEASE 25 MG TABLET. PO SCH (08:13)
[2020-05-13 08:14] VITALS: BP 168/83
[2020-05-13] MEDS: APIXABAN 5 MG TABLET. PO SCH (08:14)
[2020-05-13] MEDS: POTASSIUM CHLORIDE 20 MEQ TABLET.ER. PO SCH (08:14)
[2020-05-13] MEDS: MULTIVITAMIN with MINERAL TABLET. PO SCH (08:14)
[2020-05-13] MEDS: LOSARTAN POTASSIUM 50 MG TABLET. PO SCH (08:14)
[2020-05-13] MEDS: FUROSEMIDE 40 MG TABLET. PO SCH (08:14)
--- NOTE | 2020-05-13 10:00 | PDOC3 ---
Discharge Summary Visit Information Date of Admission: May 10, 2020 Date of Discharge: May 13, 2020 Final Diagnosis Falls, chronic renal insufficiency, acute on chronic diastolic CHF, afib on chronic anticoagulation Dm2, poor control with foot wounds obesity, BMI 38 CHF, acute on chronic diastolic atrial fib, chronic, rate controlled Brief Hospital Course Allergies Allergies Coded Allergies Type Severity Reaction Last Updated Verified No Known Drug Allergies 05/21/17 No Vital Signs Vital Signs Date Time Temp Pulse Resp B/P (MAP) Pulse Ox O2 Delivery O2 Flow Rate FiO2 05/13/20 08:14 77 168/83 05/13/20 08:00 Room Air 05/13/20 07:00 97.9 16 95 97.9 Lab Results Laboratory Tests Test 05/11/20 11:49 05/11/20 16:51 05/11/20 20:52 05/12/20 07:46 Glucose (Fingerstick) 119 mg/dL (70-99) 142 mg/dL (70-99) 155 mg/dL (70-99) 115 mg/dL (70-99) Test 05/12/20 11:42 05/12/20 12:30 05/12/20 16:47 05/12/20 20:38 Glucose (Fingerstick) 144 mg/dL (70-99) 117 mg/dL (70-99) 145 mg/dL (70-99) Coronavirus (COVID-19)(PCR) Negative (NEGATIVE) Test 05/13/20 08:07 Glucose (Fingerstick) 114 mg/dL (70-99) Laboratory Tests Test 05/12/20 11:42 05/12/20 12:30 05/12/20 16:47 05/12/20 20:38 Glucose (Fingerstick) 144 mg/dL (70-99) 117 mg/dL (70-99) 145 mg/dL (70-99) Coronavirus (COVID-19)(PCR) Negative (NEGATIVE) Test 05/13/20 08:07 Glucose (Fingerstick) 114 mg/dL (70-99) Brief Hospital Course Mr. Duval is a 60 old male, admit with weakness, falls, foot wounds, LE e marline, pain Discharge Information Condition at Discharge: Improved Follow Up: Weeks Disposition/Orders: D/C to Another Facility Scheduled Amlodipine Besylate (Amlodipine Besylate) 10 Mg Tablet, 10 MG PO DAILY for HTN for 30 Days, #30 Ref 5 Prescribed by: ALFA VILLASENOR MD on 09/24/19911 Last Action: Continued on 05/10/20848 by TALITA EASON Apixaban (Eliquis) 5 Mg Tablet, 5 MG PO BID for atrial fibrillation for 30 Days, #60 Prescribed by: KARENA SUTTON MD on 04/17/201402 Last Action: Continued on 05/10/20848 by TALITA EASON Ascorbic Acid (Ascorbic Acid) 500 Mg Tablet, 500 MG PO DAILY for supplement, (Reported) Entered as Reported by: CHAVEZ HILL on 05/10/20806 Last Action: Continued on 05/10/20848 by TALITA EASON Aspirin (Aspirin Ec) 81 Mg Tablet.dr, 81 MG PO DAILYWBKFT for CAD for 30 Days, #30 Ref 5 Prescribed by: ALFA VILLASENOR MD on 09/24/19911 Last Action: Continued on 05/10/20848 by TALITA EASON Atorvastatin Calcium (Atorvastatin Calcium) 20 Mg Tablet, 20 MG PO QHS for HLD for 90 Days, #90 Ref 3 Prescribed by: ALFA VILLASENOR MD on 09/24/19911 Last Action: Continued on 05/10/20848 by TALITA EASON Furosemide (Lasix) 40 Mg Tablet, 1 TAB PO DAILY for htn for 30 Days, #30 Ref 0 Prescribed by: KARENA SUTTON MD on 04/17/201402 Last Action: Continued on 05/10/20848 by TALITA EASON Insulin Glargine,Hum.rec.anlog (Lantus) 100 Unit/1 Ml Vial, 8 UNIT SQ QHS for DM2 for 30 Days, #1 Ref 2 Prescribed by: ALFA VILLASENOR MD on 09/24/19911 Last Action: Continued on 05/10/20848 by TALITA EASON Losartan Potassium (Cozaar ) 50 Mg Tablet, 50 MG PO DAILY for HTN/DM2 for 30 Days, #30 Prescribed by: ALFA VILLASENOR MD on 09/24/19911 Last Action: Continued on 05/10/20848 by TALITA EASON Metoprolol Tartrate (Metoprolol Tartrate) 25 Mg Tablet, 0.5 TAB PO BID for AFIB for 30 Days, #30 Ref 2 Prescribed by: RIKA STOREY on 04/18/20 1304 Last Action: Continued on 05/10/20848 by TALITA EASON Multivitamin (Multi-Vitamin Daily) 1 Each Tablet, 1 TAB PO DAILY for supplement for 30 Days, #30 Ref 0 (Reported) Entered as Reported by: CHAVEZ HILL on 05/10/20 0810 Last Action: Converted on 05/10/20848 by TALITA EASON Potassium Chloride (Potassium Chloride ) 20 Meq Tablet.er, 20 MEQ PO DAILY for SUPPLEMENT for 30 Days, #30 Prescribed by: KARENA SUTTON MD on 04/17/20 1403 Last Action: Continued on 05/10/20848 by TALITA EASON Patient Instructions Patient Instructions to [facility] plan acute rehab, COVID test screen held up transfer for one day is a [facility] patient, > 30 min total coordination and review face to face eval done Justicifation of Admission Dx: Justifications for Admission: Justification of Admission Dx: Yes Chronic Renal Failure: Cardiac Arrhythmias ZOEY HERNANDEZ MD May 13, 2020 10:00
--- NOTE | 2020-05-13 15:20 | NUR ---
Patient refused discharge pictures.
--- NOTE | 2020-05-13 15:38 | NUR ---
[facility] bed seed cone picker confirmation # [id number]
== END 2020-05-13 11:30 | DRG 291 ==
LOC: ER 19:36 → ED HOLD 22:53 → 4 NORTH 05-10 01:37 → OBSVTOIN 05-10 13:38
PROVIDERS: ADMIT Internal Medicine; ATTEND Internal Medicine
DX: I13.0 Hypertensive heart and chronic kidney disease with heart failure and stage 1 through stage 4 chronic kidney disease, or unspecified chronic kidney disease (principal); I50.33 Acute on chronic diastolic (congestive) heart failure; I48.20 Chronic atrial fibrillation, unspecified; S01.312A Laceration without foreign body of left ear, initial encounter; E11.22 Type 2 diabetes mellitus with diabetic chronic kidney disease; E66.9 Obesity, unspecified; E78.00 Pure hypercholesterolemia, unspecified; E78.5 Hyperlipidemia, unspecified; N18.9 Chronic kidney disease, unspecified; W18.30XA Fall on same level, unspecified, initial encounter; Z68.38 Body mass index [BMI] 38.0-38.9, adult; Z79.01 Long term (current) use of anticoagulants; Z82.49 Family history of ischemic heart disease and other diseases of the circulatory system; Z20.828 Contact with and (suspected) exposure to other viral communicable diseases; Y93.89 Activity, other specified; Y92.89 Other specified places as the place of occurrence of the external cause; Y99.8 Other external cause status
CPT/HCPCS: 36415; 70450; 72125; 80053; 82962; 85025; 85610; 85730; 96372; 99285; G0378; G0379; J3490; 97110-GP; 97116-GP; 97530-GO; 97535-GO; U0003-CS